=== PATIENT | female | born 1940 | race Caucasian/White ===

== ENCOUNTER → 2018-12-01 | Emergency (ER) | LOC: FER 22:08 ==

== ENCOUNTER 2020-04-27 13:54 | Inpatient (IN) | payer OTHER, MEDICARE ==
--- NOTE | 2020-04-27 14:08 | PDOC ---
History of Present Illness - General Chief Complaint: Shortness of Breath Stated Complaint: sob and abdominal pain Time Seen by Provider: 04/27/20 14:04 - History of Present Illness Initial Comments: 04/27/20 14:29 Chief complaint: Shortness of breath HPI: Increasing shortness of breath for about 3 days, worse this morning. Also generalized weakness, fatigue, and anorexia. Denies fever/chills, body aches. Review of systems: As noted above. In addition, no headache, URI symptoms, sore throat, cough, chest pain, abdominal pain, nausea, vomiting, diarrhea, diaphoresis, vaginal bleeding or discharge, urinary tract symptoms, visual or focal neurologic symptoms or unsteadiness of gait. Remainder of systems reviewed and negative Past medical history: Gallstones with acute cholecystitis several months ago, surgery was not possible, treated with a stent that resolved the symptoms and the stent was removed. Took medication to "dissolve the gallstones" and thus far had no recurrences. Jka-pignlai-ccioxucyt diabetes. High blood pressure. Hypothyroidism. Medications: Glipizide, metformin, hydrochlorothiazide, ramipril, verapamil, metoprolol, Synthroid, Actigall, Social history: Lives next door to her daughter, ambulatory, cares for herself, never smoked, no alcohol or other drugs. Family history: Reviewed and noncontributory including early coronary artery disease, metabolic disease including diabetes, cancer Physical exam: Alert and oriented, moderately dyspneic, tachypneic, well- nourished, cooperative Afebrile, vital signs reveal respiratory rate of 28 and labored and oxygen saturation of 75% on room air, improving to 96% on 3 L nasal cannula. To 148/48 and heart rate 57 and regular. HEENT normal Neck supple without bruit mass or nodes Chest exam reveals bilateral scattered rales and wheezes over both posterior lung catalan. Tachypnea and dyspnea as described above CV S1-S2 normal without murmur rub or gallop pulses full and symmetric no JVD. 2+ edema to the midcalf. No erythema or warmth. Mildly bradycardic at 57/min Abdomen nondistended. Bowel sounds normal. Soft without mass tenderness organomegaly Neurological C2 to 12 intact. Strength full and symmetric. No focal sensory or motor deficits. Cerebellar intact. Gait not tested Skin clear, no rash, adequate turgor and wet mucous membranes Extremities: No visible or palpable trauma. Edema as noted in the lower extremities Impression: Acute shortness of breath, progressing over 2 to 3 days, without fever or cough. Possibilities include acute bronchitis, pneumonia, including COVID, CHF. Less likely is PE or acute coronary syndrome Plan: CBC chemistries chest x-ray EKG and enzymes. Further evaluation and treatment depending on results Past History - Medical History Allergies/Adverse Reactions: Allergies Allergy/AdvReac Type Severity Reaction Status Date / Time Penicillins Allergy Severe throat Verified 04/27/20 15:02 swelling egg Allergy Verified 04/27/20 15:02 shellfish derived Allergy Verified 04/27/20 15:02 sulfur [From Sulfur-8] Allergy Verified 04/27/20 15:02 yellow dye Allergy Verified 04/27/20 15:02 Home Medications: Ambulatory Orders Glipizide [Glipizide Xl] 5 mg PO BID 12/01/18 Hydrochlorothiazide [Hctz -] 12.5 mg PO DAILY 12/01/18 Metformin HCl [Glucophage] 500 mg PO BID 12/01/18 Ursodiol [Actigal -] 300 mg PO BID capsule 12/08/18 Metoprolol Tartrate 100 mg PO BID 04/27/20 COPD: No Diabetes: Yes GI Disorders: Yes (gallbladder) HTN: Yes Thyroid Disease: Yes - Immunization History Immunization Up to Date: Yes - Psycho-Social/Smoking History Smoking History: Never smoked Have you smoked in the past 12 months: No Information on smoking cessation initiated: No - Substance Abuse Hx (Audit-C & DAST Scrn) How often the patient has a drink containing alcohol: Never Score: In Men: 4 or > Positive; In Women: 3 or > Positive: 0 Screen Result (Pos requires Nsg. Audit-10AR): Negative *Physical Exam - Vital Signs Last Vital Signs Temp Pulse Resp BP Pulse Ox 97.8 F 58 L 19 180/73 H 75 L 04/27/20 13:55 04/27/20 13:55 04/27/20 13:55 04/27/20 13:55 04/27/20 13:55 ED Treatment Course - LABORATORY CBC & Chemistry Diagram: 04/27/20 14:45 04/27/20 14:45 Medical Decision Making - Medical Decision Making 04/27/20 15:26 Chest x-ray shows moderate to severe congestive changes. EKG mild sinus bradycardia 58/min. Normal axis and intervals. No ST-T wave changes. Otherwise normal EKG. 04/27/20 16:44 Laboratories show no significant abnormalities, troponin pending. Patient responded well to intravenous Lasix, breathing much better both subjectively and objectively. Respiratory rate is 20 and unlabored. O2 saturation 88% on 2 L/min nasal cannula. No chest pain nausea diaphoresis. Hospitalist team was informed of the admission. Spoke with Luna Cheema. Will be admitted under Dr. Benny Ramos. Clinically and hemodynamically stable upon transfer to the [facility] floor. Discharge - Discharge Information Problems reviewed: Yes Clinical Impression/Diagnosis: CHF (congestive heart failure) Qualifiers: Heart failure type: unspecified Heart failure chronicity: acute Qualified Code(s): I50.9 - Heart failure, unspecified - Admission Yes - Follow up/Referral - Patient Discharge Instructions - Post Discharge Activity
--- OUTSIDE RECORDS SUMMARY | 2020-04-27 14:09 | XMS ---
:1940 Author Organization [facility] Support Name Relationship Address Phone RE Unavailable Unavailable Unavailable ABHIJEET MARQUEZ DAUGHTER [address] [place] [address] Re-disclosure Warning The records that you are about to access may contain information from federally- assisted alcohol or drug abuse programs. If such information is present, then the following federally mandated warning applies: This information has been disclosed to you from records protected by federal confidentiality rules (42 CFR part 2). The federal rules prohibit you from making any further disclosure of this information unless further disclosure is expressly permitted by the written consent of the person to whom it pertains or as otherwise permitted by 42 CFR part 2. A general authorization for the release of medical or other information is NOT sufficient for this purpose. The Federal rules restrict any use of the information to criminally investigate or prosecute any alcohol or drug abuse patient.The records that you are about to access may contain highly sensitive health information, the redisclosure of which is protected by Article 27-F of the [facility] Public Health law. If you continue you may haveaccess to information: Regarding HIV / AIDS; Provided by facilities licensed or operated by the [facility] Office of Mental Health; or Provided by the [facility] Office for People With Developmental Disabilities. If such information is present, then the following [facility] mandated warning applies: This information has been disclosed to you from confidential records which are protected by state law. State law prohibits you from making any further disclosure of this information without the specific written consent of the person to whom it pertains, or as otherwise permitted by law. Any unauthorized further disclosure in violation of state law may result in a fine or fpc sentence or both. A general authorization for the release of medical or other information is NOT sufficient authorization for further disclosure. Insurance Providers Payer name Policy type Policy ID Covered Covered libertarian's Policy P chel / Coverage libertarian ID relationship to [facility] ormation type andres HEALTH [id number] SP [id number] SOL[facility]IONS [facility] [employer] [id number] SP [id number] CARE OPTIONS MEDICARE [id number] SP [id number] HEALTH [employer] Results ID Date Data Source [id number] 04/08/2020 09:31:00 AM EDT [facility] Name Value Range Interpretation Code Description Data Carmel rce(s) Supporting Document(s ) SARS-COV-2 [facility] RNA RESP QL CHARISMA+PROBE This lab was ordered by [facility] and reported by [facility]. ID Date Data Source [id number] 03/11/2020 10:27:00 AM EDT [facility] Name Value Range Interpretation Code Description Data Carmel rce(s) Supporting Document(s ) SARS-COV-2 [facility] RNA RESP QL CHARISMA+PROBE This lab was ordered by [facility] and reported by [facility]. ID Date Data Source [id number] 01/27/2020 12:06:00 AM EDT [facility] Name Value Range Interpretation Code Description Data Carmel rce(s) Supporting Document(s ) SARS-COV-2 [facility] RNA RESP QL CHARISMA+PROBE This lab was ordered by [facility] and reported by [facility]. Procedure
[2020-04-27 14:58] LABS: BASO % 3.9 % (0-2.0); EOS % 0.5 % (0-4.5); HEMATOCRIT 34.6 % (32.4-45.2); HEMOGLOBIN 10.8 GM/dl (10.7-15.3); LYMPH % 8.1 % (8-40); MCH 30.1 pg (25.7-33.7); MCHC 31.1 g/dl (32.0-36.0); MEAN CELL VOLUME 96.6 fl (80-96); MEAN PLT VOLUME 8.4 fl (7.5-11.1); MONO % 8.5 % (3.8-10.2); PLATELET COUNT 470 K/MM3 (134-434); RBC 3.59 M/mm3 (3.60-5.2); RDW 18.1 % (11.6-15.6)
[2020-04-27 15:11] LABS: ALBUMIN 3.7 g/dl (3.4-5.0); CALCIUM 9.1 mg/dl (8.5-10); CREATININE 1.1 mg/dl (0.55-1.3); POTASSIUM 4.7 mmol/L (3.5-5.1); TOT PROT 6.9 g/dl (6.4-8.2)
[2020-04-27 15:25] LABS: INR 1.22 (0.82-1.09); PROTHROMBIN TIME (PATIENT) 13.6 SEC (10.2-13.0)
[2020-04-27] MEDS ORDERED: FUROSEMIDE 40 MG/4 ML INJECTABLE VIAL IVPUSH ONE (15:37)
[2020-04-27] MEDS ORDERED: INSULIN REGULAR HUMAN 100 UNITS/ML *VIAL SQ ONE (16:01)
[2020-04-27] MEDS ORDERED: FUROSEMIDE 40 MG/4 ML INJECTABLE VIAL ONE (16:05)
[2020-04-27] MEDS ORDERED: INSULIN REGULAR HUMAN 100 UNITS/ML *VIAL ONE (16:07)
--- NOTE | 2020-04-27 16:18 | HP ---
CHIEF COMPLAINT: Shortness of breath PCP: Dr. Roni Rose, [facility] HISTORY OF PRESENT ILLNESS: 79 year-old female with a PMH significant for HTN, Type II NIDDM, hypothyroidism, acute cholecystitis/cholangitis, presents to ED with SOB x 3 days. Also generalized weakness, fatigue, and anorexia. Denies fever/chills, body aches. Hospitalized at [facility] in November 2018 for acute cholecystitis/cholangitis. Was rehospitalized several months ago at [facility] for same problem, patient states they were unable to remove the gallbladder because it was infected and she had drainage tubes for a time. Denies abdominal pain, n/v/d. Denies ever being told she has heart failure. ER course was notable for: (1) SpO2 75% on room air (2) WBC 17.0k, glucose 459 (4) Lasix IVP 40mg x 1; insulin 20U Recent Travel: No PAST MEDICAL HISTORY: Hypertension Type II NIDDM Hypothyroidism Acute cholecystitis/cholangitis 11/2018 PAST SURGICAL HISTORY: Sphincterotomy 11/2018 Cholecystostomy 2019 Social History: Lives next door to her daughter, ambulatory, cares for herself Smoking: never Alcohol: no Drugs: no Family history: reviewed and non-contributory Allergies Penicillins Allergy (Severe, Verified 04/27/20 15:02) throat swelling egg Allergy (Verified 04/27/20 15:02) shellfish derived Allergy (Verified 04/27/20 15:02) sulfur [From Sulfur-8] Allergy (Verified 04/27/20 15:02) yellow dye Allergy (Verified 04/27/20 15:02) HOME MEDICATIONS: Home Medications Medication Instructions Recorded Glipizide [Glipizide Xl] 5 mg PO BID 12/01/18 Hydrochlorothiazide [Hctz -] 12.5 mg PO DAILY 12/01/18 Metformin HCl [Glucophage] 500 mg PO BID 12/01/18 Ursodiol [Actigal -] 300 mg PO BID capsule 12/08/18 Metoprolol Tartrate 100 mg PO BID 04/27/20 REVIEW OF SYSTEMS CONSTITUTIONAL: +weakness, fatigue, anorexia Absent: fever, chills, diaphoresis, generalized weakness, malaise, loss of appetite, weight change HEENT: Absent: rhinorrhea, nasal congestion, throat pain, throat swelling, difficulty swallowing, mouth swelling, ear pain, eye pain, visual changes CARDIOVASCULAR: Absent: chest pain, syncope, palpitations, irregular heart rate, lightheadedness, peripheral edema RESPIRATORY: +SOB Absent: cough, shortness of breath, dyspnea with exertion, orthopnea, wheezing, stridor, hemoptysis GASTROINTESTINAL: Absent: abdominal pain, abdominal distension, nausea, vomiting, diarrhea, constipation, melena, hematochezia GENITOURINARY: Absent: dysuria, frequency, urgency, hesitancy, hematuria, flank pain, genital pain MUSCULOSKELETAL: Absent: myalgia, arthralgia, joint swelling, back pain, neck pain SKIN: Absent: rash, itching, pallor HEMATOLOGIC/IMMUNOLOGIC: Absent: easy bleeding, easy bruising, lymphadenopathy, frequent infections ENDOCRINE: Absent: unexplained weight gain, unexplained weight loss, heat intolerance, cold intolerance NEUROLOGIC: Absent: headache, focal weakness or paresthesias, dizziness, unsteady gait, seizure, mental status changes, bladder or bowel incontinence PSYCHIATRIC: Absent: anxiety, depression, suicidal or homicidal ideation, hallucinations. PHYSICAL EXAMINATION Vital Signs - 24 hr 04/27/20 04/27/20 13:55 14:25 Temperature 97.8 F Pulse Rate 58 L Respiratory 19 Rate Blood Pressure 180/73 H O2 Sat by Pulse 100 100 Oximetry (%) GENERAL: Awake, alert, and fully oriented, in no acute distress. Anxious HEAD: Normal with no signs of trauma. EYES: Pupils equal, round and reactive to light, extraocular movements intact, sclera anicteric, conjunctiva clear. No lid lag. LUNGS: Bilateral upper lobe wheezes; bilateral lower lobe crackles; dyspneic with speaking HEART: Regular rate and rhythm, normal S1 and S2 ABDOMEN: Soft, nontender, not distended UPPER EXTREMITIES: 2+ pulses, warm, well-perfused. No cyanosis. No clubbing. No peripheral edema. LOWER EXTREMITIES: 2+ pulses, warm, well-perfused. No calf tenderness. 3+pitting edema bilaterally NEUROLOGICAL: Cranial nerves II-XII intact. Normal speech. Laboratory Results - last 24 hr 04/27/20 04/27/20 04/27/20 14:45 14:45 14:45 WBC 17.0 H RBC 3.59 L Hgb 10.8 Hct 34.6 MCV 96.6 H MCH 30.1 MCHC 31.1 L RDW 18.1 H D Plt Count 470 H MPV 8.4 Absolute Neuts (auto) 13.4 Neutrophils % 79.0 Lymphocytes % 8.1 Monocytes % 8.5 Eosinophils % 0.5 Basophils % 3.9 H PT with INR 13.6 H INR 1.22 Sodium 132 L Potassium 4.7 Chloride 96 L Carbon Dioxide 28 Anion Gap 8 BUN 27.0 H Creatinine 1.1 Est GFR (CKD-EPI)AfAm 54.91 Est GFR (CKD-EPI)NonAf 47.38 Random Glucose 459 H* Calcium 9.1 Total Bilirubin 1.0 AST 20 ALT 22 Alkaline Phosphatase 65 Creatine Kinase Total Protein 6.9 Albumin 3.7 04/27/20 14:45 WBC RBC Hgb Hct MCV MCH MCHC RDW Plt Count MPV Absolute Neuts (auto) Neutrophils % Lymphocytes % Monocytes % Eosinophils % Basophils % PT with INR INR Sodium Potassium Chloride Carbon Dioxide Anion Gap BUN Creatinine Est GFR (CKD-EPI)AfAm Est GFR (CKD-EPI)NonAf Random Glucose Calcium Total Bilirubin AST ALT Alkaline Phosphatase Creatine Kinase 28 Total Protein Albumin ASSESSMENT/PLAN: 79 year-old female with a PMH significant for HTN, Type II NIDDM, hypothyroidism, acute cholecystitis/cholangitis, admitted for acute hypoxic respiratory failure. Acute hypoxic respiratory failure --SpO2 75% on room air on arrival to ED Acute heart failure NOS --CXR with significant congestion, lower extremity edema; significant improvement in O2 saturation following admimistration of Lasix in ED --Echo November 2018: LV normal, EF 55-60%; RV normal; trace MR, trace TR, mild PI; will get repeat study --troponins pending --BNP pending --Lasix IVP 40mg daily --telemetry monitoring --cardiology consult Possible pneumonia --leukocytosis and possible infiltrate on CXR --CT chest pending --blood and urine cultures pending, urine pneumonia Ag ordered, rapid flu ordered --COVID pending --start empiric levaquin (pen allergic) Hypertension --continue metoprolol; hold HCTZ since on lasix Type II NIDDM --Novolog sliding scale coverage FEN Fluids: PO intake adequate Electrolytes: replete as indicated Nutrition: low sodium DVT prophylaxis: subq heparin Physical therapy Dispo: continues to require inpatient care. Full code. Family Medical History Family History: As Documented Visit type - Medication Review Med list reviewed for High Risk Meds patients 65 and older: Yes - Emergency Visit Emergency Visit: Yes ED Registration Date: 04/27/20 Care time: The patient presented to the Emergency Department on the above date and was hospitalized for further evaluation of their emergent condition. - New Patient This patient is new to me today: Yes Date on this admission: 04/28/20 - Critical Care Critical Care patient: No
--- OUTSIDE RECORDS SUMMARY | 2020-04-27 17:44 | XMS ---
:1940 Author Organization [facility] Support Name Relationship Address Phone RE Unavailable Unavailable Unavailable ABHIJEET MARQUEZ DAUGHTER [address] [facility] [place] [address] Re-disclosure Warning The records that you are [...] is protected by Article 27-F of the [facility] Public Health law. If you continue you may haveaccess to information: Regarding HIV / AIDS; Provided by facilities licensed or operated by the [facility] Office of Mental Health; or Provided by the [facility] Office for People With Developmental Disabilities. If such information is present, then the following [facility] mandated warning applies: This information [...] law may result in a fine or long term sentence or both. A general authorization for the release of medical or other information is NOT sufficient authorization for further disclosure. Insurance Providers Payer name Policy type Policy ID Covered Covered republican's Policy P chel / Coverage republican ID relationship to [facility]res [facility] ormation type andres [facility] [id number] CARE OPTIONS MEDICARE [id number] SP [id number] HEALTH [id number] SP [id number] SOLUTIONS [facility] SP HEALTH [employer] Results ID Date Data Source [id number] 04/08/2020 09:31:00 AM EDT [facility] Name Value Range Interpretation Code Description Data Carmel rce(s) Supporting Document(s ) SARS-COV-2 [facility] RNA RESP QL CHARISMA+PROBE This lab was ordered by [facility] and reported by [facility]. ID Date Data Source [id number] 03/11/2020 10:27:00 AM EDT [facility] Name Value Range Interpretation Code Description Data Carmel rce(s) Supporting Document(s ) SARS-COV-2 [facility] RNA RESP QL CHARISMA+PROBE This lab was ordered by [facility] and reported by [facility]. ID Date Data Source [id number] 01/27/2020 12:06:00 AM EDT [facility] Name Value Range Interpretation Code Description Data Carmel rce(s) Supporting Document(s ) SARS-COV-2 [facility] RNA RESP QL CHARISMA+PROBE This lab was ordered by [facility] and reported by [facility]. Procedure
[2020-04-27 18:45] LABS: N-TERMINAL BNP 3026.83 pg/ml (5-450)
[2020-04-27] MEDS: URSODIOL 300 MG CAPSULE PO SCH (21:45)
[2020-04-27] MEDS: HEPARIN NA (PORCINE) 5,000 UNITS/ML 1ML VIAL SQ SCH (21:50)
[2020-04-27] MEDS: METOPROLOL TARTRATE 50 MG TABLET (FP) PO SCH (21:51)
[2020-04-27] MEDS: INSULIN SLIDING SCALE (NOVOLOG) 1 VIAL SQ SCH (22:20)
[2020-04-28] MEDS: HEPARIN NA (PORCINE) 5,000 UNITS/ML 1ML VIAL SQ SCH ×3 (06:12→22:11)
[2020-04-28] MEDS: INSULIN SLIDING SCALE (NOVOLOG) 1 VIAL SQ SCH ×4 (06:12→22:14)
[2020-04-28 08:21] LABS: BASO % 1.1 % (0-2.0); EOS % 1.9 % (0-4.5); HEMATOCRIT 32.3 % (32.4-45.2); HEMOGLOBIN 10.2 GM/dl (10.7-15.3); LYMPH % 21.9 % (8-40); MCH 30.1 pg (25.7-33.7); MCHC 31.7 g/dl (32.0-36.0); MEAN CELL VOLUME 94.9 fl (80-96); MEAN PLT VOLUME 8.2 fl (7.5-11.1); NEUT % 67.1 % (42.8-82.8); PLATELET COUNT 373 K/MM3 (134-434); WHITE BLOOD COUNT 12.3 K/mm3 (4.0-10.8)
[2020-04-28 08:32] LABS: ALBUMIN 3.3 g/dl (3.4-5.0); BILIRUBIN,TOTAL 0.6 mg/dl (0.2-1); CREATININE 1.2 mg/dl (0.55-1.3); MAGNESIUM 1.8 mg/dL (1.8-2.4); PHOSPHOROUS 4.8 mg/dl (2.5-4.9); POTASSIUM 4.4 mmol/L (3.5-5.1); TOT PROT 6.2 g/dl (6.4-8.2)
[2020-04-28] MEDS: METOPROLOL TARTRATE 50 MG TABLET (FP) PO SCH ×2 (09:40→22:10)
[2020-04-28] MEDS: URSODIOL 300 MG CAPSULE PO SCH ×2 (09:40→22:11)
[2020-04-28] MEDS ORDERED: FUROSEMIDE 40 MG/4 ML INJECTABLE VIAL IVPUSH SCH (10:00)
--- NOTE | 2020-04-28 12:45 | PN ---
Physical Exam: SUBJECTIVE: Patient seen and examined. With clear nasal discharge and sneezing. Denies cough, denies SOB. OBJECTIVE: Vital Signs Period Temp Pulse Resp BP Sys/St Pulse Ox Last 24 Hr 97.6 F-98.9 F 19-62 18-20 107-180/42-84 75-100 GENERAL: Awake, alert, and fully oriented, in no acute distress. Anxious HEAD: Normal with no signs of trauma. EYES: Pupils equal, round and reactive to light, extraocular movements intact, sclera anicteric, conjunctiva clear. No lid lag. LUNGS: Bilateral upper lobe wheezes; bilateral lower lobe crackles; dyspneic with speaking HEART: Regular rate and rhythm, normal S1 and S2 ABDOMEN: Soft, nontender, not distended UPPER EXTREMITIES: 2+ pulses, warm, well-perfused. No cyanosis. No clubbing. No peripheral edema. LOWER EXTREMITIES: 2+ pulses, warm, well-perfused. No calf tenderness. 3+pitting edema bilaterally NEUROLOGICAL: Cranial nerves II-XII intact. Normal speech. Laboratory Results - last 24 hr 04/27/20 04/27/20 04/27/20 14:15 14:45 14:45 WBC RBC Hgb Hct MCV MCH MCHC RDW Plt Count MPV Absolute Neuts (auto) Neutrophils % Lymphocytes % Monocytes % Eosinophils % Basophils % PT with INR INR D-Dimer 959 H Sodium 132 L Potassium 4.7 Chloride 96 L Carbon Dioxide 28 Anion Gap 8 BUN 27.0 H Creatinine 1.1 Est GFR (CKD-EPI)AfAm 54.91 Est GFR (CKD-EPI)NonAf 47.38 POC Glucometer Random Glucose 459 H* Hemoglobin A1c % Lactic Acid Calcium 9.1 Phosphorus Magnesium Total Bilirubin 1.0 AST 20 ALT 22 Alkaline Phosphatase 65 Creatine Kinase Troponin I < 0.03 Cancelled B-Natriuretic Peptide Cancelled Total Protein 6.9 Albumin 3.7 Triglycerides Cholesterol Total LDL Cholesterol HDL Cholesterol TSH Urine Color Urine Appearance Urine pH Urine Protein Urine Glucose (UA) Urine Ketones Urine Blood Urine Nitrite Urine Bilirubin Urine Urobilinogen Ur Leukocyte Esterase Urine RBC Urine WBC Urine Bacteria Influenza A (Rapid) Influenza B (Rapid) 04/27/20 04/27/20 04/27/20 14:45 14:45 14:45 WBC 17.0 H RBC 3.59 L Hgb 10.8 Hct 34.6 MCV 96.6 H MCH 30.1 MCHC 31.1 L RDW 18.1 H D Plt Count 470 H MPV 8.4 Absolute Neuts (auto) 13.4 Neutrophils % 79.0 Lymphocytes % 8.1 Monocytes % 8.5 Eosinophils % 0.5 Basophils % 3.9 H PT with INR 13.6 H INR 1.22 D-Dimer Sodium Potassium Chloride Carbon Dioxide Anion Gap BUN Creatinine Est GFR (CKD-EPI)AfAm Est GFR (CKD-EPI)NonAf POC Glucometer Random Glucose Hemoglobin A1c % Lactic Acid Calcium Phosphorus Magnesium Total Bilirubin AST ALT Alkaline Phosphatase Creatine Kinase 28 Troponin I B-Natriuretic Peptide 3026.83 H Total Protein Albumin Triglycerides Cholesterol Total LDL Cholesterol HDL Cholesterol TSH Urine Color Urine Appearance Urine pH Urine Protein Urine Glucose (UA) Urine Ketones Urine Blood Urine Nitrite Urine Bilirubin Urine Urobilinogen Ur Leukocyte Esterase Urine RBC Urine WBC Urine Bacteria Influenza A (Rapid) Influenza B (Rapid) 04/27/20 04/27/20 04/27/20 16:20 16:30 18:30 WBC RBC Hgb Hct MCV MCH MCHC RDW Plt Count MPV Absolute Neuts (auto) Neutrophils % Lymphocytes % Monocytes % Eosinophils % Basophils % PT with INR INR D-Dimer Sodium Potassium Chloride Carbon Dioxide Anion Gap BUN Creatinine Est GFR (CKD-EPI)AfAm Est GFR (CKD-EPI)NonAf POC Glucometer Random Glucose Hemoglobin A1c % Lactic Acid 0.9 Calcium Phosphorus Magnesium Total Bilirubin AST ALT Alkaline Phosphatase Creatine Kinase Troponin I B-Natriuretic Peptide Total Protein Albumin Triglycerides Cholesterol Total LDL Cholesterol HDL Cholesterol TSH Urine Color Yellow Urine Appearance Clear Urine pH 5.0 Urine Protein Trace Urine Glucose (UA) 2+ H Urine Ketones Negative Urine Blood Trace-lysed Urine Nitrite Negative Urine Bilirubin Negative Urine Urobilinogen 0.2 Ur Leukocyte Esterase Negative Urine RBC 2-5 Urine WBC 0-2 Urine Bacteria Few Influenza A (Rapid) Negative Influenza B (Rapid) Negative 04/27/20 04/27/20 04/27/20 21:43 23:00 23:00 WBC RBC Hgb Hct MCV MCH MCHC RDW Plt Count MPV Absolute Neuts (auto) Neutrophils % Lymphocytes % Monocytes % Eosinophils % Basophils % PT with INR INR D-Dimer Sodium Potassium Chloride Carbon Dioxide Anion Gap BUN Creatinine Est GFR (CKD-EPI)AfAm Est GFR (CKD-EPI)NonAf POC Glucometer 179 Random Glucose Hemoglobin A1c % Lactic Acid Calcium Phosphorus Magnesium Total Bilirubin AST ALT Alkaline Phosphatase Creatine Kinase Troponin I Cancelled < 0.02 B-Natriuretic Peptide Total Protein Albumin Triglycerides Cholesterol Total LDL Cholesterol HDL Cholesterol TSH Urine Color Urine Appearance Urine pH Urine Protein Urine Glucose (UA) Urine Ketones Urine Blood Urine Nitrite Urine Bilirubin Urine Urobilinogen Ur Leukocyte Esterase Urine RBC Urine WBC Urine Bacteria Influenza A (Rapid) Influenza B (Rapid) 04/28/20 04/28/20 04/28/20 04:00 04:00 06:08 WBC RBC Hgb Hct MCV MCH MCHC RDW Plt Count MPV Absolute Neuts (auto) Neutrophils % Lymphocytes % Monocytes % Eosinophils % Basophils % PT with INR INR D-Dimer Sodium Potassium Chloride Carbon Dioxide Anion Gap BUN Creatinine Est GFR (CKD-EPI)AfAm Est GFR (CKD-EPI)NonAf POC Glucometer 82 Random Glucose Hemoglobin A1c % Lactic Acid Calcium Phosphorus Magnesium Total Bilirubin AST ALT Alkaline Phosphatase Creatine Kinase Troponin I Cancelled < 0.02 B-Natriuretic Peptide Total Protein Albumin Triglycerides Cholesterol Total LDL Cholesterol HDL Cholesterol TSH Urine Color Urine Appearance Urine pH Urine Protein Urine Glucose (UA) Urine Ketones Urine Blood Urine Nitrite Urine Bilirubin Urine Urobilinogen Ur Leukocyte Esterase Urine RBC Urine WBC Urine Bacteria Influenza A (Rapid) Influenza B (Rapid) 04/28/20 04/28/20 04/28/20 07:12 07:12 07:12 WBC 12.3 H RBC 3.40 L Hgb 10.2 L Hct 32.3 L MCV 94.9 MCH 30.1 MCHC 31.7 L RDW 18.0 H Plt Count 373 MPV 8.2 Absolute Neuts (auto) 8.2 Neutrophils % 67.1 Lymphocytes % 21.9 Monocytes % 8.0 Eosinophils % 1.9 Basophils % 1.1 PT with INR INR D-Dimer Sodium 139 Potassium 4.4 Chloride 98 Carbon Dioxide 31 Anion Gap 10 BUN 29.0 H Creatinine 1.2 Est GFR (CKD-EPI)AfAm 49.43 Est GFR (CKD-EPI)NonAf 42.65 POC Glucometer Random Glucose 111 H Hemoglobin A1c % 8.2 H Lactic Acid Calcium 9.0 Phosphorus 4.8 Magnesium 1.8 Total Bilirubin 0.6 AST 14 L ALT 18 Alkaline Phosphatase 57 Creatine Kinase Troponin I B-Natriuretic Peptide Total Protein 6.2 L Albumin 3.3 L Triglycerides 137 Cholesterol 158 Total LDL Cholesterol 97 HDL Cholesterol 33 L TSH 11.50 H Urine Color Urine Appearance Urine pH Urine Protein Urine Glucose (UA) Urine Ketones Urine Blood Urine Nitrite Urine Bilirubin Urine Urobilinogen Ur Leukocyte Esterase Urine RBC Urine WBC Urine Bacteria Influenza A (Rapid) Influenza B (Rapid) Active Medications Generic Name Dose Route Start Last Admin Trade Name Oriana PRN Reason Stop Dose Admin Furosemide 40 mg 04/28/20 10:00 04/28/20 09:40 Lasix Injection - IVPUSH 40 mg DAILY JANIA Administration Heparin Sodium (Porcine) 5,000 unit 04/27/20 22:00 04/28/20 06:12 Heparin - SQ 5,000 unit TID JANIA Administration Levofloxacin 750 mg in 150 mls @ 150 mls/hr 04/27/20 18:15 04/28/20 09:39 Levaquin 750 Mg Premixed Ivpb - IVPB 150 mls/hr DAILY JANIA Administration Protocol Insulin Aspart 1 vial 04/27/20 22:00 04/28/20 06:12 Novolog Vial Sliding Scale - SQ Not Given ACHS [facility] Protocol Metoprolol Tartrate 100 mg 04/27/20 22:00 04/28/20 09:40 Lopressor - PO 100 mg BID JANIA Administration Ursodiol 300 mg 04/27/20 22:00 04/28/20 09:40 Actigal - PO 300 mg BID JANIA Administration ASSESSMENT/PLAN: 79 year-old female with a PMH significant for HTN, Type II NIDDM, hypothyroidism, acute cholecystitis/cholangitis, admitted for acute hypoxic respiratory failure. Acute hypoxic respiratory failure --SpO2 75% on room air on arrival to ED Acute diastolic heart failure --CXR with significant congestion, lower extremity edema; BNP >3,000 --11/2018 Echo November 2018: LV normal, EF 55-60%; RV normal; trace MR, trace TR, mild PI --04/28/20 Echo: LV normal, EF 55-60%; RV normal; mild MR; moderate TR; mild PI; --troponins neg x 3 --down 2.5kg from yesterday, continue Lasix IVP 40mg daily --telemetry monitoring --cardiology consult Strep pneumoniae pneumonia --CT chest: ILYA focal groundglass opacity suggestive of infiltrate --Urine antigen (+) S. pneumonia --remains afebrile, WBC trending down --COVID pending; d-dimer elevated --continue levaquin (day #2) (pen allergic) Hypertension --continue metoprolol; hold HCTZ since on lasix Type II NIDDM --Novolog sliding scale coverage FEN Fluids: PO intake adequate Electrolytes: replete as indicated Nutrition: low sodium DVT prophylaxis: subq heparin Physical therapy Dispo: continues to require inpatient care. Full code. Visit type - Emergency Visit Emergency Visit: Yes ED Registration Date: 04/27/20 Care time: The patient presented to the Emergency Department on the above date and was hospitalized for further evaluation of their emergent condition. - New Patient This patient is new to me today: No - Critical Care Critical Care patient: No - Medication Review Med list reviewed for High Risk Meds patients 65 and older: Yes
--- NOTE | 2020-04-28 13:28 | ECHO ---
Name: ALANIS COLBY Exam:Adult Echocardiogram Study Date: 04/28/2020 12:18 PM Age: 79 yrs Reason For Study: LV Function Height: 65 in Weight: 203 lb BSA: 2.0 m2 MMode/2D Measurements & Calculations IVSd: 0.88 cm Ao root diam: 2.7 cm LVIDd: 4.9 cm LA dimension: 3.2 cm LVIDs: 3.4 cm LVPWd: 1.0 cm EDV(Teich): 110.9 ml LVOT diam: 2.0 cm ESV(Teich): 46.3 ml Doppler Measurements & Calculations MV E max raheel: 89.6 cm/sec MV A max raheel: 39.6 cm/sec MV dec slope: 447.2 cm/sec2 MV E/A: 2.3 Ao V2 max: 131.9 cm/sec LV V1 max P.1 mmHg Ao max P.0 mmHg LV V1 max: 72.6 cm/sec TRISH(V,D): 1.7 cm2 MR max raheel: 438.6 cm/sec TR max raheel: 274.1 cm/sec MR max P.0 mmHg TR max P.7 mmHg PA V2 max: 113.6 cm/sec PI end-d raheel: 126.4 cm/sec PA max P.2 mmHg Procedure A complete two-dimensional transthoracic echocardiogram was performed (2D, M-mode, Doppler and color flow Doppler). The study was technically difficult with many images being suboptimal in quality. Left Ventricle The left ventricular size, thickness and function are normal. Ejection Fraction = 55-60%. No regional wall motion abnormalities noted. Right Ventricle The right ventricle is normal in size and function. Atria Normal left and right atrial size and function. Mitral Valve There is mild mitral regurgitation. Tricuspid Valve There is moderate tricuspid regurgitation. There is mild pulmonary hypertension. Aortic Valve No hemodynamically significant valvular aortic stenosis. No aortic regurgitation is present. Pulmonic Valve There is no pulmonic valvular regurgitation. Great Vessels The aortic root is normal size. Pericardium/Pleura There is no pericardial effusion. Interpretation Summary The study was technically difficult with many images being suboptimal in quality. The left ventricular size, thickness and function are normal The right ventricle is normal in size and function. There is mild mitral regurgitation. There is moderate tricuspid regurgitation. There is mild pulmonary hypertension. MD Nelson Jeffries 04/28/2020 01:27 PM
--- NOTE | 2020-04-28 13:39 | EKG ---
Test Reason : Blood Pressure : / mmHG Vent. Rate : 058 BPM Atrial Rate : 058 BPM P-R Int : 154 ms QRS Dur : 088 ms QT Int : 456 ms P-R-T Axes : 013 029 035 degrees QTc Int : 447 ms SINUS BRADYCARDIA OTHERWISE NORMAL ECG WHEN COMPARED WITH ECG OF 02-DEC-2018 02:37, VENT. RATE HAS DECREASED BY 29 BPM Confirmed by NATASHA NICHOLS MD ([id number]) on 04/28/2020 1:38:45 PM Referred By: MD RAI Confirmed By:NATASHA NICHOLS MD
--- NOTE | 2020-04-28 14:10 | CON.ID ---
Consult Consult Specialty:: infectious diseases Referred by:: Peg Reason for Consultation:: pneumonia - History of Present Illness Chief Complaint: sob History of Present Illness: 79 year-old female with a PMH significant for HTN, Type II NIDDM, hypothyroidism, acute cholecystitis/cholangitis, presents with SOB x 3 days. Also generalized weakness, fatigue, and anorexia. Denies fever/chills, body aches. Hospitalized at [facility] in November 2018 for acute cholecystitis/cholangitis. Was rehospitalized several months ago at [facility] for same problem, patient states they were unable to remove the gallbladder because it was infected and she had drainage tubes for a time. Denies abdominal pain, n/v/d. Denies ever being told she has heart failure. patient currently on oxygen and was started on levaquin - History Source History Provided By: Patient Limitations to Obtaining History: No Limitations - Past Medical History Cardio/Vascular: Yes: HTN ...: No Endocrine: Yes: Diabetes Mellitus, Hypothyroidism - Past Surgical History Past Surgical History: Yes: None - Alcohol/Substance Use Hx Alcohol Use: No History of Substance Use: reports: None - Smoking History Smoking history: Never smoked Have you smoked in the past 12 months: No - Social History Usual Living Arrangement: Other (near her daughter) ADL: Independent History of Recent Travel: No Home Medications - Allergies Allergies/Adverse Reactions: Allergies Allergy/AdvReac Type Severity Reaction Status Date / Time Penicillins Allergy Severe throat Verified 04/27/20 15:02 swelling egg Allergy Verified 04/27/20 15:02 shellfish derived Allergy Verified 04/27/20 15:02 sulfur [From Sulfur-8] Allergy Verified 04/27/20 15:02 yellow dye Allergy Verified 04/27/20 15:02 - Home Medications Home Medications: Ambulatory Orders Glipizide [Glipizide Xl] 5 mg PO BID 12/01/18 Hydrochlorothiazide [Hctz -] 12.5 mg PO DAILY 12/01/18 Metformin HCl [Glucophage] 500 mg PO BID 12/01/18 Ursodiol [Actigal -] 300 mg PO BID capsule 12/08/18 Metoprolol Tartrate 100 mg PO BID 04/27/20 Review of Systems - Review of Systems Constitutional: reports: Weakness, Other Eyes: reports: No Symptoms HENT: reports: No Symptoms Neck: reports: No Symptoms Cardiovascular: reports: No Symptoms Respiratory: reports: Cough, SOB, SOB on Exertion, Wheezing Gastrointestinal: reports: No Symptoms Genitourinary: reports: No Symptoms Musculoskeletal: reports: No Symptoms Integumentary: reports: No Symptoms Neurological: reports: No Symptoms Endocrine: reports: No Symptoms Hematology/Lymphatic: reports: No Symptoms Psychiatric: reports: No Symptoms Physical Exam Vital Signs: Vital Signs Temperature 98.7 F 04/28/20 12:02 Pulse Rate 57 L 04/28/20 12:02 Respiratory Rate 20 04/28/20 12:02 Blood Pressure 137/47 L 04/28/20 12:02 O2 Sat by Pulse Oximetry (%) 98 04/28/20 12:02 Constitutional: Yes: Calm, Anxious, Mild Distress Eyes: Yes: Conjunctiva Clear HENT: Yes: Atraumatic, Normocephalic Neck: Yes: Supple, Trachea Midline Cardiovascular: Yes: Regular Rate and Rhythm Respiratory: Yes: Regular, Poor Air Entry (at the bases) Gastrointestinal: Yes: Normal Bowel Sounds, Soft Musculoskeletal: Yes: WNL Extremities: Yes: WNL Neurological: Yes: Alert, Oriented Psychiatric: Yes: Alert, Oriented Labs: CBC, BMP 04/28/20 07:12 04/28/20 07:12 Imaging - Results Chest X-ray: Report Reviewed, Image Reviewed Cat Scan: Report Reviewed, Image Reviewed Assessment/Plan 79 year-old female with a PMH significant for HTN, Type II NIDDM, hypothyroidism, acute cholecystitis/cholangitis, admitted for acute hypoxic respiratory failure. Acute hypoxic respiratory failure Acute diastolic heart failure Strep pneumoniae pneumonia Hypertension Type II NIDDM plan
--- NOTE | 2020-04-28 18:08 | CON.CARD ---
Cardiology Consult (text) - Consultation Consultation Note: cc: sob hpi: 79 f hx htn, dm, here with sob. Past few days has noticed mild sob, do, and le edema. Also general weakness. No cp palps dizzy loc pnd orthopnea. No known hx hrt dz. pmh: per hpi psh: gallbladder stent social: no tob fam: no premature cad, scd ros: per hpi; all others nl meds: Home Medications Medication Instructions Recorded Glipizide [Glipizide Xl] 5 mg PO BID 12/01/18 Hydrochlorothiazide [Hctz -] 12.5 mg PO DAILY 12/01/18 Metformin HCl [Glucophage] 500 mg PO BID 12/01/18 Ursodiol [Actigal -] 300 mg PO BID capsule 12/08/18 Metoprolol Tartrate 100 mg PO BID 04/27/20 pe: Vital Signs Period Temp Pulse Resp BP Sys/St Pulse Ox Last 24 Hr 97.6 F-98.9 F - 18- 107-145/42-79 94-99 nad no jvd rrr s1s2 nomrg b/l crackles, nl eff aao3 2+le edema bl, no c/c abd nt nd pos bs no jaundice diaphoresis pos dp pt no carotid bruits Laboratory Last Values WBC 12.3 K/mm3 (4.0-10.8) H 04/28/20 07:12 RBC 3.40 M/mm3 (3.60-5.2) L 04/28/20 07:12 Hgb 10.2 GM/dl (10.7-15.3) L 04/28/20 07:12 Hct 32.3 % (32.4-45.2) L 04/28/20 07:12 MCV 94.9 fl (80-96) 04/28/20 07:12 MCH 30.1 pg (25.7-33.7) 04/28/20 07:12 MCHC 31.7 g/dl (32.0-36.0) L 04/28/20 07:12 RDW 18.0 % (11.6-15.6) H 04/28/20 07:12 Plt Count 373 K/MM3 (134-434) 04/28/20 07:12 MPV 8.2 fl (7.5-11.1) 04/28/20 07:12 Absolute Neuts (auto) 8.2 K/mm3 04/28/20 07:12 Neutrophils % 67.1 % (42.8-82.8) 04/28/20 07:12 Lymphocytes % 21.9 % (8-40) 04/28/20 07:12 Monocytes % 8.0 % (3.8-10.2) 04/28/20 07:12 Eosinophils % 1.9 % (0-4.5) 04/28/20 07:12 Basophils % 1.1 % (0-2.0) 04/28/20 07:12 PT with INR 13.6 SEC (10.2-13.0) H 04/27/20 14:45 INR 1.22 (0.82-1.09) 04/27/20 14:45 D-Dimer 959 ng/ml (0-500) H 04/27/20 14:45 Sodium 139 mmol/L (136-145) 04/28/20 07:12 Potassium 4.4 mmol/L (3.5-5.1) 04/28/20 07:12 Chloride 98 mmol/L (98-107) 04/28/20 07:12 Carbon Dioxide 31 mmol/L (21-32) 04/28/20 07:12 Anion Gap 10 MMOL/L (8-16) 04/28/20 07:12 BUN 29.0 mg/dl (7-18) H 04/28/20 07:12 Creatinine 1.2 mg/dl (0.55-1.3) 04/28/20 07:12 Est GFR (CKD-EPI)AfAm 49.43 04/28/20 07:12 Est GFR (CKD-EPI)NonAf 42.65 04/28/20 07:12 POC Glucometer 165 UNITS (80-120) 04/28/20 16:31 Random Glucose 111 mg/dl (74-106) H 04/28/20 07:12 Hemoglobin A1c % 8.2 % (4.2-6.3) H 04/28/20 07:12 Lactic Acid 0.9 mmol/L (0.4-2.0) 04/27/20 16:20 Calcium 9.0 mg/dl (8.5-10) 04/28/20 07:12 Phosphorus 4.8 mg/dl (2.5-4.9) 04/28/20 07:12 Magnesium 1.8 mg/dL (1.8-2.4) 04/28/20 07:12 Total Bilirubin 0.6 mg/dl (0.2-1) 04/28/20 07:12 AST 14 U/L (15-37) L 04/28/20 07:12 ALT 18 U/L (13-61) 04/28/20 07:12 Alkaline Phosphatase 57 U/L (45-117) 04/28/20 07:12 Creatine Kinase 28 U/L (26-192) 04/27/20 14:45 Troponin I < 0.02 ng/ml (0.00-0.05) 04/28/20 04:00 Troponin I Cancelled 04/28/20 04:00 B-Natriuretic Peptide 3026.83 pg/ml (5-450) H 04/27/20 14:45 B-Natriuretic Peptide Cancelled 04/27/20 14:45 Total Protein 6.2 g/dl (6.4-8.2) L 04/28/20 07:12 Albumin 3.3 g/dl (3.4-5.0) L 04/28/20 07:12 Triglycerides 137 mg/dl (0-150) 04/28/20 07:12 Cholesterol 158 mg/dl (50-200) 04/28/20 07:12 Total LDL Cholesterol 97 mg/dL (5-100) 04/28/20 07:12 HDL Cholesterol 33 mg/dl (40-60) L 04/28/20 07:12 TSH 11.50 uIU/ml (0.358-3.74) H 04/28/20 07:12 Urine Color Yellow 04/27/20 16:30 Urine Appearance Clear 04/27/20 16:30 Urine pH 5.0 (4.5-8) 04/27/20 16:30 Urine Protein Trace (NEGATIVE) 04/27/20 16:30 Urine Glucose (UA) 2+ (NEGATIVE) H 04/27/20 16:30 Urine Ketones Negative (NEGATIVE) 04/27/20 16:30 Urine Blood Trace-lysed (NEGATIVE) 04/27/20 16:30 Urine Nitrite Negative (NEGATIVE) 04/27/20 16:30 Urine Bilirubin Negative (NEGATIVE) 04/27/20 16:30 Urine Urobilinogen 0.2 (0.2-1.0) 04/27/20 16:30 Ur Leukocyte Esterase Negative (NEGATIVE) 04/27/20 16:30 Urine RBC 2-5 /hpf (0-4) 04/27/20 16:30 Urine WBC 0-2 (NEGATIVE) 04/27/20 16:30 Urine Bacteria Few /hpf (NEGATIVE) 04/27/20 16:30 COVID-19 (CHARISMA) Not detected (Not Detected) 04/27/20 14:45 Influenza A (Rapid) Negative (Negative) 04/27/20 18:30 Influenza B (Rapid) Negative (Negative) 04/27/20 18:30 tele: sr echo 04/2020: tds, nl lv/rv, mod tr, mild phtn ecg:sr nl intervals no ischemic changes ct chest: +chf with effs, +sergey pna a/p: 79 f hx htn, dm, here with sob. sob, acute diastolic chf: -no known hx chf but here now with vol overload/diastolic chf -no signs acs -will increase lasix to 40 iv bid. daily chem7 and wts pna: -abx per ID htn: -stable, cont bb dm: -stable, per primary
[2020-04-28] MEDS ORDERED: guaiFENesin/D-METHORPHAN HB 10 ML UNIT-DOSE CUPS PO PRN (19:22)
[2020-04-28] MEDS ORDERED: diphenhydrAMINE HCL 25 MG CAPSULE (FP) PO ONE (20:29)
[2020-04-28] MEDS: ALBUTEROL SO4 2.5/IPRATROPIUM 0.5 INH SOL 3 ML VIAL.NEB. NEB SCH (20:54)
[2020-04-29] MEDS: HEPARIN NA (PORCINE) 5,000 UNITS/ML 1ML VIAL SQ SCH ×3 (05:57→21:17)
[2020-04-29] MEDS: FUROSEMIDE 40 MG/4 ML INJECTABLE VIAL IVPUSH SCH ×2 (05:57→14:30)
--- NOTE | 2020-04-29 06:02 | PN ---
Physical Exam: SUBJECTIVE: Patient seen and examined oob to chair. OBJECTIVE: Vital Signs Period Temp Pulse Resp BP Sys/St Pulse Ox Last 24 Hr 98.0 F-98.9 F 56-68 18-20 123-146/43-79 95-99 GENERAL: Awake, alert, and fully oriented, in no acute distress. LUNGS: CTA, better air movement, improved HEART: Regular rate and rhythm, normal S1 and S2 ABDOMEN: Soft, nontender, not distended UPPER EXTREMITIES: 2+ pulses, warm, well-perfused. No cyanosis. No clubbing. No peripheral edema. LOWER EXTREMITIES: 2+ pulses, warm, well-perfused. No calf tenderness. 2+ b/l edema, improved NEUROLOGICAL: Cranial nerves II-XII intact. Normal speech. Laboratory Results - last 24 hr 04/27/20 04/28/20 04/28/20 14:45 06:08 07:12 WBC 12.3 H RBC 3.40 L Hgb 10.2 L Hct 32.3 L MCV 94.9 MCH 30.1 MCHC 31.7 L RDW 18.0 H Plt Count 373 MPV 8.2 Absolute Neuts (auto) 8.2 Neutrophils % 67.1 Lymphocytes % 21.9 Monocytes % 8.0 Eosinophils % 1.9 Basophils % 1.1 Sodium Potassium Chloride Carbon Dioxide Anion Gap BUN Creatinine Est GFR (CKD-EPI)AfAm Est GFR (CKD-EPI)NonAf POC Glucometer 82 Random Glucose Hemoglobin A1c % Calcium Phosphorus Magnesium Total Bilirubin AST ALT Alkaline Phosphatase Total Protein Albumin Triglycerides Cholesterol Total LDL Cholesterol HDL Cholesterol TSH COVID-19 (CHARISMA) Not detected 04/28/20 04/28/20 04/28/20 07:12 07:12 16:31 WBC RBC Hgb Hct MCV MCH MCHC RDW Plt Count MPV Absolute Neuts (auto) Neutrophils % Lymphocytes % Monocytes % Eosinophils % Basophils % Sodium 139 Potassium 4.4 Chloride 98 Carbon Dioxide 31 Anion Gap 10 BUN 29.0 H Creatinine 1.2 Est GFR (CKD-EPI)AfAm 49.43 Est GFR (CKD-EPI)NonAf 42.65 POC Glucometer 165 Random Glucose 111 H Hemoglobin A1c % 8.2 H Calcium 9.0 Phosphorus 4.8 Magnesium 1.8 Total Bilirubin 0.6 AST 14 L ALT 18 Alkaline Phosphatase 57 Total Protein 6.2 L Albumin 3.3 L Triglycerides 137 Cholesterol 158 Total LDL Cholesterol 97 HDL Cholesterol 33 L TSH 11.50 H COVID-19 (CHARISMA) 04/28/20 04/29/20 22:14 05:55 WBC RBC Hgb Hct MCV MCH MCHC RDW Plt Count MPV Absolute Neuts (auto) Neutrophils % Lymphocytes % Monocytes % Eosinophils % Basophils % Sodium Potassium Chloride Carbon Dioxide Anion Gap BUN Creatinine Est GFR (CKD-EPI)AfAm Est GFR (CKD-EPI)NonAf POC Glucometer 199 183 Random Glucose Hemoglobin A1c % Calcium Phosphorus Magnesium Total Bilirubin AST ALT Alkaline Phosphatase Total Protein Albumin Triglycerides Cholesterol Total LDL Cholesterol HDL Cholesterol TSH COVID-19 (CHARISMA) Active Medications Generic Name Dose Route Start Last Admin Trade Name Freq PRN Reason Stop Dose Admin Albuterol/Ipratropium 1 amp 04/28/20 20:00 04/28/20 20:54 Duoneb - NEB 1 amp RTID JANIA Administration Furosemide 40 mg 04/29/20 06:00 04/29/20 05:57 Lasix Injection - IVPUSH 40 mg BID@0600,1400 JANIA Administration Guaifenesin 10 ml 04/28/20 19:22 04/28/20 22:10 Robitussin Dm - PO 10 ml Q6H PRN Administration COUGH Heparin Sodium (Porcine) 5,000 unit 04/27/20 22:00 04/29/20 05:57 Heparin - SQ 5,000 unit TID JANIA Administration Levofloxacin 750 mg in 150 mls @ 150 mls/hr 04/27/20 18:15 04/28/20 09:39 Levaquin 750 Mg Premixed Ivpb - IVPB 150 mls/hr DAILY JANIA Administration Protocol Insulin Aspart 1 vial 04/27/20 22:00 04/28/20 22:14 Novolog Vial Sliding Scale - SQ 2 units ACHS JANIA Administration Protocol Metoprolol Tartrate 100 mg 04/27/20 22:00 04/28/20 22:10 Lopressor - PO 100 mg BID JANIA Administration Ursodiol 300 mg 04/27/20 22:00 04/28/20 22:11 Actigal - PO 300 mg BID JANIA Administration ASSESSMENT/PLAN: 79 year-old female with a PMH significant for HTN, Type II NIDDM, hypothyroidism, acute cholecystitis/cholangitis, admitted for acute hypoxic respiratory failure. Acute hypoxic respiratory failure --SpO2 75% on room air on arrival to ED Acute diastolic heart failure --newly diagnosed --04/28/20 Echo: LV normal, EF 55-60%; RV normal; mild MR; moderate TR; mild PI --troponins neg x 3 --BLE edema improved, down 2kg from admission --seen by cardiology: increase lasix IVP 40mg to BID --telemetry monitoring Strep pneumoniae pneumonia --CT chest: ILYA focal groundglass opacity suggestive of infiltrate with bilateral pleural effusions --Urine antigen (+) S. pneumonia --remains afebrile, WBC continues to trend down --continue levaquin (day #3) (pen allergic) --duonebs Bilatereal pleural effusions --pleural effusions may be secondary to HF or parapneumonic --CXR this am looks improved; serial CXRs --pulmonary consult Urine colonization --UA was negative, culture growing <100k, asymptomatic, do not treat Hypertension --continue metoprolol Type II NIDDM --Novolog sliding scale coverage Allergic rhinitis --fluticasone, NS nasal spray, Robitussin FEN Fluids: PO intake adequate Electrolytes: replete as indicated Nutrition: low sodium DVT prophylaxis: subq heparin Physical therapy Dispo: continues to require inpatient care. Full code. Visit type - Emergency Visit Emergency Visit: Yes ED Registration Date: 04/27/20 Care time: The patient presented to the Emergency Department on the above date and was hospitalized for further evaluation of their emergent condition. - New Patient This patient is new to me today: No - Critical Care Critical Care patient: No - Medication Review Med list reviewed for High Risk Meds patients 65 and older: Yes
[2020-04-29] MEDS: INSULIN SLIDING SCALE (NOVOLOG) 1 VIAL SQ SCH ×4 (06:03→21:22)
[2020-04-29 08:34] LABS: BASO % 1.1 % (0-2.0); EOS % 2.3 % (0-4.5); HEMATOCRIT 33.5 % (32.4-45.2); HEMOGLOBIN 10.9 GM/dl (10.7-15.3); LYMPH % 17.7 % (8-40); MCH 31.1 pg (25.7-33.7); MCHC 32.6 g/dl (32.0-36.0); MEAN CELL VOLUME 95.4 fl (80-96); MEAN PLT VOLUME 7.7 fl (7.5-11.1); MONO % 10.3 % (3.8-10.2); NEUT % 68.6 % (42.8-82.8); PLATELET COUNT 385 K/MM3 (134-434); RBC 3.51 M/mm3 (3.60-5.2); RDW 17.7 % (11.6-15.6); WHITE BLOOD COUNT 11.7 K/mm3 (4.0-10.8)
[2020-04-29 08:45] LABS: ALBUMIN 3.2 g/dl (3.4-5.0); BILIRUBIN,TOTAL 0.7 mg/dl (0.2-1); CALCIUM 8.5 mg/dl (8.5-10); CREATININE 1.3 mg/dl (0.55-1.3); MAGNESIUM 1.9 mg/dL (1.8-2.4); POTASSIUM 4.2 mmol/L (3.5-5.1)
[2020-04-29] MEDS: METOPROLOL TARTRATE 50 MG TABLET (FP) PO SCH ×2 (09:56→21:11)
[2020-04-29] MEDS: URSODIOL 300 MG CAPSULE PO SCH ×2 (09:56→21:10)
[2020-04-29] MEDS: ALBUTEROL SO4 2.5/IPRATROPIUM 0.5 INH SOL 3 ML VIAL.NEB. NEB SCH ×3 (09:57→20:16)
[2020-04-29] MEDS: FLUTICASONE PROP 0.05% 16 GM NASAL SPRAY NS SCH ×3 (11:17→22:00)
[2020-04-29 13:46] VITALS: BMI 33.7
[2020-04-29] MEDS ORDERED: SODIUM CHLORIDE NASAL SPRAY 44 ML BOTTLE NS PRN (14:33)
--- NOTE | 2020-04-29 15:27 | PN ---
Progress Note, Physician - Current Medication List Current Medications: Active Medications Albuterol/Ipratropium (Duoneb -) 1 amp NEB RTID [facility] Last Admin: 04/29/20 09:57 Dose: 1 amp Documented by: Fluticasone Propionate (Flonase -) 1 spray NS BID [facility] Last Admin: 04/29/20 11:17 Dose: 1 inh Documented by: Furosemide (Lasix Injection -) 40 mg IVPUSH BID@0600,1400 [facility] Last Admin: 04/29/20 05:57 Dose: 40 mg Documented by: Guaifenesin (Robitussin Dm -) 10 ml PO Q6H PRN PRN Reason: COUGH Last Admin: 04/28/20 22:10 Dose: 10 ml Documented by: Heparin Sodium (Porcine) (Heparin -) 5,000 unit SQ TID [facility] Last Admin: 04/29/20 05:57 Dose: 5,000 unit Documented by: Levofloxacin (Levaquin 750 Mg Premixed Ivpb -) 750 mg in 150 mls @ 150 mls/hr IVPB DAILY [facility]; Protocol Last Admin: 04/29/20 09:56 Dose: 150 mls/hr Documented by: Insulin Aspart (Novolog Vial Sliding Scale -) 1 vial SQ ACHS [facility]; Protocol Last Admin: 04/29/20 13:44 Dose: 6 units Documented by: Metoprolol Tartrate (Lopressor -) 100 mg PO BID [facility] Last Admin: 04/29/20 09:56 Dose: 100 mg Documented by: Sodium Chloride ([place] Nasal [place] -) 2 spray NS TID PRN PRN Reason: NASAL CONGESTION Ursodiol (Actigal -) 300 mg PO BID [facility] Last Admin: 04/29/20 09:56 Dose: 300 mg Documented by: - Objective Vital Signs: Vital Signs Temperature 98.8 F 04/29/20 14:00 Pulse Rate 77 04/29/20 14:00 Respiratory Rate 16 04/29/20 14:00 Blood Pressure 134/47 L 04/29/20 14:00 O2 Sat by Pulse Oximetry (%) 93 L 04/29/20 14:00 Labs: CBC, BMP 04/29/20 06:57 04/29/20 06:57 INR, PTT INR 1.22 (0.82-1.09) 04/27/20 14:45
[2020-04-29] MEDS ORDERED: PT OWN MED DRAWER 7, Y5N ONE (16:19)
[2020-04-30] MEDS: HEPARIN NA (PORCINE) 5,000 UNITS/ML 1ML VIAL SQ SCH ×3 (05:42→21:36)
[2020-04-30] MEDS: FUROSEMIDE 40 MG/4 ML INJECTABLE VIAL IVPUSH SCH ×2 (05:43→15:04)
[2020-04-30] MEDS: INSULIN SLIDING SCALE (NOVOLOG) 1 VIAL SQ SCH ×4 (06:04→21:50)
--- NOTE | 2020-04-30 08:45 | CON.PULM ---
Consult Consult Specialty:: PULMONARY Referred by:: COLT Reason for Consultation:: SOB - History of Present Illness Chief Complaint: SOB History of Present Illness: Increasing shortness of breath for about 3 days, worse on day of admission. Also generalized weakness, fatigue, and anorexia. Denies fever/chills, body aches. Patient denies headache, URI symptoms, sore throat, cough, chest pain, abdominal pain, nausea, vomiting, diarrhea, diaphoresis, vaginal bleeding or discharge, urinary tract symptoms, visual or focal neurologic symptoms. - History Source History Provided By: Patient, Medical Record Limitations to Obtaining History: No Limitations - Past Medical History [employer]: No: Alzheimer's Cardio/Vascular: Yes: HTN ...: No Endocrine: Yes: Diabetes Mellitus, Hypothyroidism - Past Surgical History Past Surgical History: Yes: None - Alcohol/Substance Use Hx Alcohol Use: No History of Substance Use: reports: None - Smoking History Smoking history: Never smoked Have you smoked in the past 12 months: No - Social History Usual Living Arrangement: Other (near her daughter) ADL: Independent History of Recent Travel: No Home Medications - Allergies Allergies/Adverse Reactions: Allergies Allergy/AdvReac Type Severity Reaction Status Date / Time Penicillins Allergy Severe throat Verified 04/27/20 15:02 swelling egg Allergy Verified 04/27/20 15:02 shellfish derived Allergy Verified 04/27/20 15:02 sulfur [From Sulfur-8] Allergy Verified 04/27/20 15:02 yellow dye Allergy Verified 04/27/20 15:02 - Home Medications Home Medications: Ambulatory Orders Glipizide [Glipizide Xl] 5 mg PO BID 12/01/18 Hydrochlorothiazide [Hctz -] 12.5 mg PO DAILY 12/01/18 Metformin HCl [Glucophage] 500 mg PO BID 12/01/18 Ursodiol [Actigal -] 300 mg PO BID capsule 12/08/18 Metoprolol Tartrate 100 mg PO BID 04/27/20 Family Medical History Family History: Unremarkable Review of Systems - Review of Systems Constitutional: reports: Lethargy. denies: Fever, Loss of Appetite Eyes: denies: Blurred Vision HENT: denies: Difficult Swallowing Neck: denies: Decreased ROM Cardiovascular: reports: Shortness of Breath. denies: Chest Pain Respiratory: reports: Cough, Exercise Intolerance, Orthopnea, SOB, SOB on Exertion. denies: Hemoptysis Gastrointestinal: denies: Abdominal Pain Genitourinary: denies: Burning Physical Exam Vital Sings: Vital Signs Temperature 98 F 04/30/20 05:55 Pulse Rate 67 04/30/20 05:55 Respiratory Rate 18 04/30/20 05:55 Blood Pressure 146/61 04/30/20 05:55 O2 Sat by Pulse Oximetry (%) 97 04/30/20 07:54 Constitutional: Yes: Calm Eyes: Yes: EOM Intact HENT: Yes: Normocephalic Neck: Yes: Trachea Midline Cardiovascular: Yes: S1, S2 Respiratory: Yes: Diminished (at bases) Gastrointestinal: Yes: Normal Bowel Sounds Edema: LLE: 1+, RLE: 1+ Neurological: Yes: Alert Labs: CBC, BMP 04/29/20 06:57 04/29/20 06:57 Imaging - Results Chest X-ray: Report Reviewed, Image Reviewed Cat Scan: Report Reviewed, Image Reviewed EKG: Report Reviewed Problem List - Problems (1) Pleural effusion Code(s): J90 - PLEURAL EFFUSION, NOT ELSEWHERE CLASSIFIED (2) CHF (congestive heart failure) Code(s): I50.9 - HEART FAILURE, UNSPECIFIED Qualifiers: Heart failure type: unspecified Heart failure chronicity: acute Qualified Code(s): I50.9 - Heart failure, unspecified (3) Hypertension Code(s): I10 - ESSENTIAL (PRIMARY) HYPERTENSION Assessment/Plan ACUTE LVDD B/L PLEURAL EFFUSION DOUBT PNEUMONIC PROCESS IMPROVING ON CURRENT TREATMENT ENTEROCOCCUS IN URINE LESS THAN 100K COLONY COUNT CONTINUE CURRENT TREATMENT WOULD STOP LEVAQUIN AFTER 5 DAYS Quinton HARRIS MD
--- NOTE | 2020-04-30 09:35 | PN ---
Physical Exam: SUBJECTIVE: Patient seen and examined at bedside, reports feeling much better, denies cp, sob,palpitations, cough,chills, abdominal pain, N/V/D or urinary symptoms. OBJECTIVE: Vital Signs Period Temp Pulse Resp BP Sys/St Pulse Ox Last 24 Hr 97.8 F-98.8 F 62-77 16-18 125-148/47-78 93-97 GENERAL: The patient is awake, alert, and fully oriented, in no acute distress. HEAD: Normal with no signs of trauma. EYES: PERRL, extraocular movements intact, sclera anicteric, conjunctiva clear. No ptosis. ENT: Ears normal, nares patent, oropharynx clear without exudates, moist mucous membranes. NECK: Trachea midline, full range of motion, supple. LUNGS: Breath sounds equal, clear to auscultation bilaterally, no wheezes, positive crackles, no accessory muscle use. HEART: Regular rate and rhythm, S1, S2 without murmur, rub or gallop. ABDOMEN: Soft, nontender, nondistended, normoactive bowel sounds, no guarding, no rebound, no hepatosplenomegaly, no masses. EXTREMITIES: 2+ pulses, warm, well-perfused, 1-2 +edema with mild redness NEUROLOGICAL: Cranial nerves II through XII grossly intact. Normal speech, gait not observed. PSYCH: Normal mood, normal affect. SKIN: Warm, dry, normal turgor, no rashes or lesions noted Laboratory Results - last 24 hr 04/29/20 04/29/20 04/29/20 13:40 18:48 21:12 POC Glucometer 300 236 252 04/30/20 06:01 POC Glucometer 229 Active Medications Generic Name Dose Route Start Last Admin Trade Name Freq PRN Reason Stop Dose Admin Albuterol/Ipratropium 1 amp 04/28/20 20:00 04/29/20 20:16 Duoneb - NEB 1 amp RTID JANIA Administration Fluticasone Propionate 1 spray 04/29/20 10:45 04/29/20 22:00 Flonase - NS 1 spray BID JANIA Administration Furosemide 40 mg 04/29/20 06:00 04/30/20 05:43 Lasix Injection - IVPUSH 40 mg BID@0600,1400 JANIA Administration Guaifenesin 10 ml 04/28/20 19:22 04/28/20 22:10 Robitussin Dm - PO 10 ml Q6H PRN Administration COUGH Heparin Sodium (Porcine) 5,000 unit 04/27/20 22:00 04/30/20 05:42 Heparin - SQ 5,000 unit TID JANIA Administration Levofloxacin 750 mg in 150 mls @ 150 mls/hr 04/27/20 18:15 04/29/20 09:56 Levaquin 750 Mg Premixed Ivpb - IVPB 150 mls/hr DAILY JANIA Administration Protocol Insulin Aspart 1 vial 04/27/20 22:00 04/30/20 06:04 Novolog Vial Sliding Scale - SQ 4 units ACHS JANIA Administration Protocol Metoprolol Tartrate 100 mg 04/27/20 22:00 04/29/20 21:11 Lopressor - PO 100 mg BID JANIA Administration Sodium Chloride 2 spray 04/29/20 14:33 [place] Nasal [place] - NS TID PRN NASAL CONGESTION Ursodiol 300 mg 04/27/20 22:00 04/29/20 21:10 Actigal - PO 300 mg BID JANIA Administration Microbiology 04/27/20 16:40 Blood Culture - Preliminary Blood - Peripheral Venous NO GROWTH OBTAINED AFTER 48 HOURS, INCUBATION TO CONTINUE FOR 3 DAYS. 04/27/20 16:42 Blood Culture - Preliminary Blood - Peripheral Venous NO GROWTH OBTAINED AFTER 48 HOURS, INCUBATION TO CONTINUE FOR 3 DAYS. 04/27/20 16:30 Urine Culture - Preliminary Urine - Urine Clean Catch Lactose Fermenting Neg Bacilli Group D Strep Or Entero Coccus Chest x-ray shows moderate to severe congestive changes. CT chest: ILYA focal groundglass opacity suggestive of infiltrate with bilateral pleural effusions ASSESSMENT/PLAN: 79 year-old female with a PMH significant for HTN, Type II NIDDM, hypothyroidism, recent acute cholecystitis/cholangitis s/p treatment,admitted for acute hypoxic respiratory failure. *Acute hypoxic respiratory failure -CT chest Vascular congestion, CM - SpO2 75% on room air on arrival to ED - now on RA *Acute diastolic heart failure-newly diagnosed - BNP -3026 -04/28/20 Echo: LV normal, EF 55-60%; RV normal; mild MR; moderate TR; mild PI -troponins neg x 3 - Wt 34kg>33 - tele monitoring - cardiology following - will cont on Lasix 40mg BID -will resume on home dose Ramipril - will monitor I&O's and daily wt - will monitor renal functions closely *Strep pneumoniae pneumonia -CT chest: ILYA focal groundglass opacity suggestive of infiltrate with bilateral pleural effusions -Urine antigen (+) S. pneumonia -remains afebrile, WBC continues to trend down 17>11 -continue levaquin (day #4) (pen allergic) -duonebs - ID following *Bilateral pleural effusions -pleural effusions may be secondary to HF or parapneumonic -CXR showed improvement - serial CXRs -pulmonary consult *Urine colonization -UA was negative, culture growing <100k, asymptomatic, do not treat *Hypertension -continue Atenolol, Ramipril and Verapamil (meds clarified) *Type II NIDDM -Novolog sliding scale coverage - FS AC& HS - carb consistent diet - Hgb Alc 8.2 *Allergic rhinitis -fluticasone, NS nasal spray, Robitussin *Hx of GB stone - will cont on Actigel * Hypothyroidism - will cont on Synthroid FEN Fluids: PO intake adequate Electrolytes: replete as indicated Nutrition: low sodium DVT prophylaxis: subq heparin Physical therapy Dispo: continues to require inpatient care. Full code. Visit type - Emergency Visit Emergency Visit: Yes ED Registration Date: 04/27/20 Care time: The patient presented to the Emergency Department on the above date and was hospitalized for further evaluation of their emergent condition. - New Patient This patient is new to me today: Yes Date on this admission: 04/30/20 - Critical Care Critical Care patient: No - Medication Review Med list reviewed for High Risk Meds patients 65 and older: Yes
[2020-04-30] MEDS: URSODIOL 300 MG CAPSULE PO SCH ×2 (09:44→21:36)
[2020-04-30] MEDS: METOPROLOL TARTRATE 50 MG TABLET (FP) PO SCH (09:44)
[2020-04-30] MEDS: ALBUTEROL SO4 2.5/IPRATROPIUM 0.5 INH SOL 3 ML VIAL.NEB. NEB SCH ×3 (09:44→20:24)
[2020-04-30] MEDS: RAMIPRIL 5 MG CAPSULE PO SCH (09:48)
[2020-04-30] MEDS: LEVOTHYROXINE NA 125 MCG TABLET (FP) PO SCH (09:48)
[2020-04-30] MEDS: FLUTICASONE PROP 0.05% 16 GM NASAL SPRAY NS SCH ×2 (09:49→21:36)
--- NOTE | 2020-04-30 10:38 | PN ---
Progress Note, Physician History of Present Illness: stable no new issues breathing better - Current Medication List Current Medications: Active Medications Albuterol/Ipratropium (Duoneb -) 1 amp NEB RTID [facility] Last Admin: 04/30/20 09:44 Dose: 1 amp Documented by: Cholecalciferol (Vitamin D3 -) 2,000 unit PO DAILY [facility] Fluticasone Propionate (Flonase -) 1 spray NS BID [facility] Last Admin: 04/30/20 09:49 Dose: 1 spray Documented by: Furosemide (Lasix Injection -) 40 mg IVPUSH BID@0600,1400 [facility] Last Admin: 04/30/20 05:43 Dose: 40 mg Documented by: Guaifenesin (Robitussin Dm -) 10 ml PO Q6H PRN PRN Reason: COUGH Last Admin: 04/28/20 22:10 Dose: 10 ml Documented by: Heparin Sodium (Porcine) (Heparin -) 5,000 unit SQ TID [facility] Last Admin: 04/30/20 05:42 Dose: 5,000 unit Documented by: Levofloxacin (Levaquin 750 Mg Premixed Ivpb -) 750 mg in 150 mls @ 150 mls/hr IVPB DAILY [facility]; Protocol Last Admin: 04/30/20 09:44 Dose: 150 mls/hr Documented by: Insulin Aspart (Novolog Vial Sliding Scale -) 1 vial SQ ACHS [facility]; Protocol Last Admin: 04/30/20 06:04 Dose: 4 units Documented by: Levothyroxine Sodium (Synthroid -) 125 mcg PO DAILY@0700 [facility] Last Admin: 04/30/20 09:48 Dose: 125 mcg Documented by: Metoprolol Tartrate (Lopressor -) 100 mg PO BID [facility] Last Admin: 04/30/20 09:44 Dose: 100 mg Documented by: Ramipril (Altace -) 5 mg PO DAILY [facility] Last Admin: 04/30/20 09:48 Dose: 5 mg Documented by: Sodium Chloride ([place] Nasal [place] -) 2 spray NS TID PRN PRN Reason: NASAL CONGESTION Ursodiol (Actigal -) 300 mg PO BID [facility] Last Admin: 04/30/20 09:44 Dose: 300 mg Documented by: - Objective Vital Signs: Vital Signs Temperature 98 F 04/30/20 05:55 Pulse Rate 67 04/30/20 05:55 Respiratory Rate 18 04/30/20 05:55 Blood Pressure 146/61 04/30/20 05:55 O2 Sat by Pulse Oximetry (%) 97 04/30/20 07:54 Constitutional: Yes: No Distress, Calm Cardiovascular: Yes: Regular Rate and Rhythm Respiratory: Yes: Regular, CTA Bilaterally Gastrointestinal: Yes: Normal Bowel Sounds, Soft Musculoskeletal: Yes: WNL Extremities: Yes: WNL Neurological: Yes: Alert, Oriented Psychiatric: Yes: Alert, Oriented Labs: CBC, BMP 04/29/20 06:57 04/29/20 06:57 INR, PTT INR 1.22 (0.82-1.09) 04/27/20 14:45 Assessment/Plan 79 year-old female with a PMH significant for HTN, Type II NIDDM, hypothyroidism, acute cholecystitis/cholangitis, admitted for acute hypoxic respiratory failure. Acute hypoxic respiratory failure Acute diastolic heart failure Strep pneumoniae pneumonia Hypertension Type II NIDDM plan continue abx rest as per the team
[2020-05-01] MEDS: LEVOTHYROXINE NA 125 MCG TABLET (FP) PO SCH (06:38)
[2020-05-01] MEDS: HEPARIN NA (PORCINE) 5,000 UNITS/ML 1ML VIAL SQ SCH ×3 (06:38→21:06)
[2020-05-01] MEDS: FUROSEMIDE 40 MG/4 ML INJECTABLE VIAL IVPUSH SCH ×2 (06:39→14:13)
[2020-05-01] MEDS: INSULIN SLIDING SCALE (NOVOLOG) 1 VIAL SQ SCH ×4 (07:27→21:54)
[2020-05-01] MEDS: ALBUTEROL SO4 2.5/IPRATROPIUM 0.5 INH SOL 3 ML VIAL.NEB. NEB SCH ×3 (08:15→20:57)
--- NOTE | 2020-05-01 09:19 | PN ---
Physical Exam: SUBJECTIVE: Patient seen and examined at bedside,reports feeling better, denies any cough,sob, or cp. Concerns about lower ext edema. OBJECTIVE: Vital Signs Period Temp Pulse Resp BP Sys/St Pulse Ox Last 24 Hr 97.9 F-98.6 F 58-65 16-19 125-155/49-54 94-96 GENERAL: The patient is awake, alert, and fully oriented, in no acute distress. HEAD: Normal with no signs of trauma. EYES: PERRL, extraocular movements intact, sclera anicteric, conjunctiva clear. No ptosis. ENT: Ears normal, nares patent, oropharynx clear without exudates, moist mucous membranes. NECK: Trachea midline, full range of motion, supple. LUNGS: Breath sounds diminished- LLE,no wheezes, no crackles, no accessory muscle use. HEART: Regular rate and rhythm, S1, S2 without murmur, rub or gallop. ABDOMEN: Soft, nontender, nondistended, normoactive bowel sounds, no guarding, no rebound, no hepatosplenomegaly, no masses. EXTREMITIES: 2+ pulses, warm, well-perfused, 1-2 +edema with redness, positive tenderness NEUROLOGICAL: Cranial nerves II through XII grossly intact. Normal speech, gait not observed. PSYCH: Normal mood, normal affect. SKIN: Warm, dry, normal turgor, no rashes or lesions noted Laboratory Results - last 24 hr 04/30/20 04/30/20 05/01/20 18:28 21:46 06:51 POC Glucometer 350 306 247 Active Medications Generic Name Dose Route Start Last Admin Trade Name Oriana PRN Reason Stop Dose Admin Albuterol/Ipratropium 1 amp 04/28/20 20:00 04/30/20 20:24 Duoneb - NEB 1 amp RTID JANIA Administration Atenolol 100 mg 05/01/20 10:00 Tenormin - PO DAILY JANIA Cholecalciferol 2,000 unit 05/01/20 10:00 Vitamin D3 - PO DAILY JANIA Fluticasone Propionate 1 spray 04/29/20 10:45 04/30/20 21:36 Flonase - NS 1 spray BID JANIA Administration Furosemide 40 mg 04/29/20 06:00 05/01/20 06:39 Lasix Injection - IVPUSH 40 mg BID@0600,1400 JANIA Administration Guaifenesin 10 ml 04/28/20 19:22 04/28/20 22:10 Robitussin Dm - PO 10 ml Q6H PRN Administration COUGH Heparin Sodium (Porcine) 5,000 unit 04/27/20 22:00 05/01/20 06:38 Heparin - SQ 5,000 unit TID JANIA Administration Levofloxacin 750 mg in 150 mls @ 150 mls/hr 04/27/20 18:15 04/30/20 09:44 Levaquin 750 Mg Premixed Ivpb - IVPB 150 mls/hr DAILY JANIA Administration Protocol Insulin Aspart 1 vial 04/27/20 22:00 05/01/20 07:27 Novolog Vial Sliding Scale - SQ 4 units ACHS JANIA Administration Protocol Levothyroxine Sodium 125 mcg 04/30/20 09:35 05/01/20 06:38 Synthroid - PO 125 mcg DAILY@0700 JANIA Administration Ramipril 5 mg 04/30/20 10:00 04/30/20 09:48 Altace - PO 5 mg DAILY JANIA Administration Sodium Chloride 2 spray 04/29/20 14:33 [place] Nasal [place] - NS TID PRN NASAL CONGESTION Ursodiol 300 mg 04/27/20 22:00 04/30/20 21:36 Actigal - PO 300 mg BID JANIA Administration Verapamil HCl 360 mg 05/01/20 10:00 [place] Sr Cap PO DAILY [facility] Chest x-ray shows moderate to severe congestive changes. CT chest: ILYA focal groundglass opacity suggestive of infiltrate with bilateral pleural effusions ASSESSMENT/PLAN: 79 year-old female with a PMH significant for HTN, Type II NIDDM, hypothyroidism, recent acute cholecystitis/cholangitis s/p treatment,admitted for acute hypoxic respiratory failure. *Acute hypoxic respiratory failure- resolved -CT chest Vascular congestion, CM - SpO2 75% on room air on arrival to ED - now on RA *Acute diastolic heart failure-newly diagnosed - BNP -3026 -04/28/20 Echo: LV normal, EF 55-60%; RV normal; mild MR; moderate TR; mild PI -troponins neg x 3 - Wt 208lbs to 196 lbs - tele monitoring- no cardiac events - cardiology following - will cont on Lasix 40mg BID -will resume on home dose Ramipril - will monitor I&O's and daily wt - will monitor renal functions closely *Strep pneumoniae pneumonia -CT chest: ILYA focal groundglass opacity suggestive of infiltrate with bilateral pleural effusions -Urine antigen (+) S. pneumonia -remains afebrile, WBC continues to trend down 17>11 -continue levaquin (day #5) (pen allergic) -duonebs - ID following *Bilateral pleural effusions -pleural effusions may be secondary to HF or parapneumonic -CXR showed improvement - serial CXRs -pulmonary consult done * Bilateral ower ext cellulitis -US to r/o DVT - added Doxy as per ID, will cont on Levaquin - afebrile with mild leukocytosis- trending down *Urine colonization -UA was negative, culture growing <100k, asymptomatic, do not treat *Hypertension -continue Atenolol, Ramipril and Verapamil (meds clarified) *Type II NIDDM- BS remains elevated -Novolog sliding scale coverage - FS AC& HS - carb consistent diet - Hgb Alc 8.2 - added Levemir and Pre meals Insulin *Allergic rhinitis -fluticasone, NS nasal spray, Robitussin *Hx of GB stone - will cont on Actigel * Hypothyroidism - will cont on Synthroid - TSH -11.5, will check free T4 FEN Fluids: PO intake adequate Electrolytes: replete as indicated Nutrition: low sodium DVT prophylaxis: subq heparin Physical therapy eval done, rec Home with Assist Dispo: continues to require inpatient care. Full code. Visit type - Emergency Visit Emergency Visit: Yes ED Registration Date: 04/27/20 Care time: The patient presented to the Emergency Department on the above date and was hospitalized for further evaluation of their emergent condition. - New Patient This patient is new to me today: No - Critical Care Critical Care patient: No - Medication Review Med list reviewed for High Risk Meds patients 65 and older: Yes
[2020-05-01 09:23] LABS: BASO % 1.9 % (0-2.0); EOS % 6.5 % (0-4.5); HEMATOCRIT 33.3 % (32.4-45.2); HEMOGLOBIN 11.1 GM/dl (10.7-15.3); MCH 31.3 pg (25.7-33.7); MCHC 33.2 g/dl (32.0-36.0); MEAN CELL VOLUME 94.3 fl (80-96); MEAN PLT VOLUME 8.3 fl (7.5-11.1); MONO % 9.6 % (3.8-10.2); PLATELET COUNT 321 K/MM3 (134-434); RBC 3.53 M/mm3 (3.60-5.2); RDW 17.3 % (11.6-15.6); WHITE BLOOD COUNT 11.5 K/mm3 (4.0-10.8)
[2020-05-01 09:38] LABS: CALCIUM 8.4 mg/dl (8.5-10); CREATININE 1.3 mg/dl (0.55-1.3); POTASSIUM 3.8 mmol/L (3.5-5.1)
[2020-05-01] MEDS ORDERED: PATIENT'S OWN MEDICATION (NON-FORMULARY) (Atenolol [Tenormin -] 100 MG) PO SCH (10:00)
[2020-05-01] MEDS ORDERED: VERAPAMIL 360 MG PO SCH (10:00)
[2020-05-01] MEDS ORDERED: VERAPAMIL HCL SR 180 MG CAP SUSTAINED RELEASE PO SCH (10:00)
[2020-05-01] MEDS: FLUTICASONE PROP 0.05% 16 GM NASAL SPRAY NS SCH ×2 (10:01→21:06)
[2020-05-01] MEDS: RAMIPRIL 5 MG CAPSULE PO SCH (10:01)
[2020-05-01] MEDS: URSODIOL 300 MG CAPSULE PO SCH ×2 (10:01→21:06)
[2020-05-01] MEDS: CHOLECALCIFEROL (VIT D3) 1,000 UNIT (25 MCG) TABLET PO SCH (10:02)
[2020-05-01] MEDS: ATENOLOL 50 MG TABLET (FP) PO SCH (11:00)
[2020-05-01] MEDS: Insulin (LOG) Aspart 100 UNITS/ML VIAL SQ SCH ×2 (11:46→16:28)
[2020-05-01] MEDS ORDERED: POTASSIUM CHLORIDE TABS 20 MEQ TABLET.ER (FP) PO ONE (13:00)
[2020-05-01] MEDS ORDERED: DOXYCYCLINE HYCLATE 100 MG CAPSULE PO ONE (13:00)
[2020-05-01] MEDS: DOXYCYCLINE HYCLATE 100 MG CAPSULE PO SCH (21:06)
[2020-05-01] MEDS: INSULIN (LEVEMIR) 100 UNITS/ML UNITS SQ SCH (21:55)
[2020-05-02] MEDS: HEPARIN NA (PORCINE) 5,000 UNITS/ML 1ML VIAL SQ SCH ×3 (06:47→21:16)
[2020-05-02] MEDS: INSULIN SLIDING SCALE (NOVOLOG) 1 VIAL SQ SCH ×4 (06:47→21:17)
[2020-05-02] MEDS: FUROSEMIDE 40 MG/4 ML INJECTABLE VIAL IVPUSH SCH ×2 (06:47→14:40)
[2020-05-02] MEDS: Insulin (LOG) Aspart 100 UNITS/ML VIAL SQ SCH ×3 (06:47→16:15)
[2020-05-02] MEDS: LEVOTHYROXINE NA 125 MCG TABLET (FP) PO SCH (06:47)
[2020-05-02 08:11] LABS: BASO % 1.1 % (0-2.0); EOS % 4.9 % (0-4.5); HEMATOCRIT 34.2 % (32.4-45.2); HEMOGLOBIN 10.9 GM/dl (10.7-15.3); LYMPH % 23.7 % (8-40); MCH 30.4 pg (25.7-33.7); MEAN CELL VOLUME 95.1 fl (80-96); MEAN PLT VOLUME 7.7 fl (7.5-11.1); MONO % 7.5 % (3.8-10.2); NEUT % 62.8 % (42.8-82.8); PLATELET COUNT 338 K/MM3 (134-434); RBC 3.59 M/mm3 (3.60-5.2); RDW 17.7 % (11.6-15.6); WHITE BLOOD COUNT 11.6 K/mm3 (4.0-10.8)
[2020-05-02 08:14] LABS: CALCIUM 8.4 mg/dl (8.5-10); CREATININE 1.3 mg/dl (0.55-1.3); POTASSIUM 3.5 mmol/L (3.5-5.1)
--- NOTE | 2020-05-02 08:57 | PN ---
Progress Note, Physician History of Present Illness: stable no complaints b/l edema of the leg - Current Medication List Current Medications: Active Medications Albuterol/Ipratropium (Duoneb -) 1 amp NEB RTID [facility] Last Admin: 05/01/20 20:57 Dose: 1 amp Documented by: Atenolol (Tenormin -) 100 mg PO DAILY [facility] Last Admin: 05/01/20 11:00 Dose: 100 mg Documented by: Cholecalciferol (Vitamin D3 -) 2,000 unit PO DAILY [facility] Last Admin: 05/01/20 10:02 Dose: 2,000 unit Documented by: Doxycycline Hyclate (Vibramycin -) 100 mg PO BID [facility] Last Admin: 05/01/20 21:06 Dose: 100 mg Documented by: Fluticasone Propionate (Flonase -) 1 spray NS BID [facility] Last Admin: 05/01/20 21:06 Dose: 1 spray Documented by: Furosemide (Lasix Injection -) 40 mg IVPUSH BID@0600,1400 [facility] Last Admin: 05/02/20 06:47 Dose: 40 mg Documented by: Guaifenesin (Robitussin Dm -) 10 ml PO Q6H PRN PRN Reason: COUGH Last Admin: 04/28/20 22:10 Dose: 10 ml Documented by: Heparin Sodium (Porcine) (Heparin -) 5,000 unit SQ TID [facility] Last Admin: 05/02/20 06:47 Dose: 5,000 unit Documented by: Levofloxacin (Levaquin 750 Mg Premixed Ivpb -) 750 mg in 150 mls @ 150 mls/hr IVPB DAILY [facility]; Protocol Last Admin: 05/01/20 10:01 Dose: 150 mls/hr Documented by: Insulin Aspart (Novolog Vial Sliding Scale -) 1 vial SQ ACHS [facility]; Protocol Last Admin: 05/02/20 06:47 Dose: Not Given Documented by: Insulin Aspart (Novolog) 3 units SQ TIDAC [facility] Last Admin: 05/02/20 06:47 Dose: 3 units Documented by: Insulin Detemir (Levemir Vial) 10 units SQ HS [facility] Last Admin: 05/01/20 21:55 Dose: 10 units Documented by: Levothyroxine Sodium (Synthroid -) 125 mcg PO DAILY@0700 [facility] Last Admin: 05/02/20 06:47 Dose: 125 mcg Documented by: Ramipril (Altace -) 5 mg PO DAILY [facility] Last Admin: 05/01/20 10:01 Dose: 5 mg Documented by: Sodium Chloride ([place] Nasal [place] -) 2 spray NS TID PRN PRN Reason: NASAL CONGESTION Ursodiol (Actigal -) 300 mg PO BID [facility] Last Admin: 05/01/20 21:06 Dose: 300 mg Documented by: Verapamil HCl (Calan Sr -) 360 mg PO DAILY [facility] - Objective Vital Signs: Vital Signs Temperature 98.2 F 05/02/20 06:00 Pulse Rate 63 05/02/20 06:00 Respiratory Rate 18 05/02/20 06:00 Blood Pressure 117/47 L 05/02/20 06:00 O2 Sat by Pulse Oximetry (%) 99 05/02/20 06:00 Constitutional: Yes: No Distress, Calm Cardiovascular: Yes: S1, S2 Respiratory: Yes: Regular, CTA Bilaterally Gastrointestinal: Yes: Normal Bowel Sounds, Soft Musculoskeletal: Yes: WNL Extremities: Yes: WNL Neurological: Yes: Alert, Oriented Psychiatric: Yes: Alert, Oriented Labs: CBC, BMP 05/02/20 07:10 05/02/20 07:10 INR, PTT INR 1.22 (0.82-1.09) 04/27/20 14:45 Assessment/Plan 79 year-old female with a PMH significant for HTN, Type II NIDDM, hypothyroidism, acute cholecystitis/cholangitis, admitted for acute hypoxic respiratory failure. Acute hypoxic respiratory failure Acute diastolic heart failure Strep pneumoniae pneumonia Hypertension Type II NIDDM plan continue abx rest as per the team complee a 7 day course repeat imaging studies
[2020-05-02] MEDS: ALBUTEROL SO4 2.5/IPRATROPIUM 0.5 INH SOL 3 ML VIAL.NEB. NEB SCH ×3 (09:38→20:03)
[2020-05-02] MEDS: DOXYCYCLINE HYCLATE 100 MG CAPSULE PO SCH ×2 (09:39→21:18)
[2020-05-02] MEDS: URSODIOL 300 MG CAPSULE PO SCH ×2 (09:39→21:17)
[2020-05-02] MEDS: CHOLECALCIFEROL (VIT D3) 1,000 UNIT (25 MCG) TABLET PO SCH (09:40)
[2020-05-02] MEDS: FLUTICASONE PROP 0.05% 16 GM NASAL SPRAY NS SCH ×2 (09:41→21:18)
--- NOTE | 2020-05-02 10:37 | PN ---
Physical Exam: SUBJECTIVE: Patient seen and examined OBJECTIVE: Vital Signs Period Temp Pulse Resp BP Sys/St Pulse Ox Last 24 Hr 97.9 F-98.4 F 61-69 17-20 113-126/39-47 94-99 GENERAL: Awake, alert, and fully oriented, in no acute distress. LUNGS: CTA, better air movement, improved HEART: Regular rate and rhythm, normal S1 and S2 ABDOMEN: Soft, nontender, not distended UPPER EXTREMITIES: 2+ pulses, warm, well-perfused. No cyanosis. No clubbing. No peripheral edema. LOWER EXTREMITIES: 2+ pulses, warm, well-perfused. No calf tenderness. 2+ b/l edema, improved NEUROLOGICAL: Cranial nerves II-XII intact. Normal speech. Laboratory Results - last 24 hr 05/01/20 05/01/20 05/01/20 06:50 06:50 11:36 WBC RBC Hgb Hct MCV MCH MCHC RDW Plt Count MPV Absolute Neuts (auto) Neutrophils % Lymphocytes % Monocytes % Eosinophils % Basophils % ESR 27 Sodium Potassium Chloride Carbon Dioxide Anion Gap BUN Creatinine Est GFR (CKD-EPI)AfAm Est GFR (CKD-EPI)NonAf POC Glucometer 334 Random Glucose Calcium Magnesium Free T4 0.80 05/01/20 05/01/20 05/02/20 16:18 21:49 06:40 WBC RBC Hgb Hct MCV MCH MCHC RDW Plt Count MPV Absolute Neuts (auto) Neutrophils % Lymphocytes % Monocytes % Eosinophils % Basophils % ESR Sodium Potassium Chloride Carbon Dioxide Anion Gap BUN Creatinine Est GFR (CKD-EPI)AfAm Est GFR (CKD-EPI)NonAf POC Glucometer 349 273 211 Random Glucose Calcium Magnesium Free T4 05/02/20 05/02/20 07:10 07:10 WBC 11.6 H RBC 3.59 L Hgb 10.9 Hct 34.2 MCV 95.1 MCH 30.4 MCHC 32.0 RDW 17.7 H Plt Count 338 MPV 7.7 Absolute Neuts (auto) 7.3 Neutrophils % 62.8 Lymphocytes % 23.7 Monocytes % 7.5 Eosinophils % 4.9 H Basophils % 1.1 ESR Sodium 136 Potassium 3.5 Chloride 94 L Carbon Dioxide 31 Anion Gap 11 BUN 28.0 H Creatinine 1.3 Est GFR (CKD-EPI)AfAm 44.87 Est GFR (CKD-EPI)NonAf 38.71 POC Glucometer Random Glucose 205 H Calcium 8.4 L Magnesium 2.0 Free T4 Active Medications Generic Name Dose Route Start Last Admin Trade Name Freq PRN Reason Stop Dose Admin Albuterol/Ipratropium 1 amp 04/28/20 20:00 05/02/20 09:38 Duoneb - NEB 1 amp RTID JANIA Administration Atenolol 100 mg 05/01/20 10:00 05/01/20 11:00 Tenormin - PO 100 mg DAILY JANIA Administration Cholecalciferol 2,000 unit 05/01/20 10:00 05/02/20 09:40 Vitamin D3 - PO 2,000 unit DAILY JANIA Administration Doxycycline Hyclate 100 mg 05/01/20 22:00 05/02/20 09:39 Vibramycin - PO 100 mg BID JANIA Administration Fluticasone Propionate 1 spray 04/29/20 10:45 05/02/20 09:41 Flonase - NS 1 spray BID JANIA Administration Furosemide 40 mg 04/29/20 06:00 05/02/20 06:47 Lasix Injection - IVPUSH 40 mg BID@0600,1400 JANIA Administration Guaifenesin 10 ml 04/28/20 19:22 04/28/20 22:10 Robitussin Dm - PO 10 ml Q6H PRN Administration COUGH Heparin Sodium (Porcine) 5,000 unit 04/27/20 22:00 05/02/20 06:47 Heparin - SQ 5,000 unit TID JANIA Administration Levofloxacin 750 mg in 150 mls @ 150 mls/hr 04/27/20 18:15 05/02/20 09:40 Levaquin 750 Mg Premixed Ivpb - IVPB 150 mls/hr DAILY JANIA Administration Protocol Insulin Aspart 1 vial 04/27/20 22:00 05/02/20 06:47 Novolog Vial Sliding Scale - SQ Not Given ACHS [facility] Protocol Insulin Aspart 3 units 05/01/20 11:00 05/02/20 06:47 Novolog SQ 3 units TIDAC JANIA Administration Insulin Detemir 10 units 05/01/20 22:00 05/01/20 21:55 Levemir Vial SQ 10 units HS JANIA Administration Levothyroxine Sodium 125 mcg 04/30/20 09:35 05/02/20 06:47 Synthroid - PO 125 mcg DAILY@0700 JANIA Administration Ramipril 5 mg 04/30/20 10:00 05/01/20 10:01 Altace - PO 5 mg DAILY JANIA Administration Sodium Chloride 2 spray 04/29/20 14:33 [place] Nasal [place] - NS TID PRN NASAL CONGESTION Ursodiol 300 mg 04/27/20 22:00 05/02/20 09:39 Actigal - PO 300 mg BID JANIA Administration Verapamil HCl 360 mg 05/02/20 10:00 Calan Sr - PO DAILY JANIA ASSESSMENT/PLAN: 79 year-old female with a PMH significant for HTN, Type II NIDDM, hypothyroidism, acute cholecystitis/cholangitis, admitted for acute hypoxic respiratory failure. Acute hypoxic respiratory failure, resolved --SpO2 75% on room air on arrival to ED --pre post today: 98% on room air at rest, 92% on room air with flat surface ambulation Acute diastolic heart failure --newly diagnosed --04/28/20 Echo: LV normal, EF 55-60%; RV normal; mild MR; moderate TR; mild PI --troponins neg x 3 --BLE edema improved, down 5.3kg from admission --continue Lasix BID --repeat CXR pending Hypertension --diastolic BPs have been running <60 for several days since starting Ramipril; will hold --continue atenolol, verapamil Strep pneumoniae pneumonia --CT chest: ILYA focal ground glass opacity suggestive of infiltrate with bilateral pleural effusions --Urine antigen (+) S. pneumonia --remains afebrile, WBC continues to trend down --continue levaquin (day #6- tomorrow last dose) --duonebs Bilateral lower extremity cellulitis --continue doxycycline Bilateral pleural effusions --pleural effusions may be secondary to HF or parapneumonic --serial CXRs --pulmonary consult Urine colonization --UA was negative, culture growing <100k, asymptomatic, do not treat Type II NIDDM --Novolog sliding scale coverage --Levemir 10U Allergic rhinitis --fluticasone, NS nasal spray, Robitussin Cholecystitis h/o cholangitis --continue ursodial Hypothhyroidism --continue levothyroxine FEN Fluids: PO intake adequate Electrolytes: replete as indicated Nutrition: low sodium DVT prophylaxis: subq heparin Physical therapy Dispo: continues to require inpatient care. Full code. Visit type - Emergency Visit Emergency Visit: Yes ED Registration Date: 04/27/20 Care time: The patient presented to the Emergency Department on the above date and was hospitalized for further evaluation of their emergent condition. - New Patient This patient is new to me today: No - Critical Care Critical Care patient: No - Discharge Referral [facility]erred to [facility] Med P.C[facility] No - Medication Review Med list reviewed for High Risk Meds patients 65 and older: Yes
[2020-05-02] MEDS: VERAPAMIL HCL 180 MG E.R. TABLET PO SCH (10:51)
[2020-05-02] MEDS: RAMIPRIL 5 MG CAPSULE PO SCH (10:52)
[2020-05-02] MEDS: ATENOLOL 50 MG TABLET (FP) PO SCH (10:52)
--- NOTE | 2020-05-02 13:36 | PN ---
Progress Note (short form) - Note Progress Note: cc: sob hpi: 79 f hx htn, dm, here with sob. Past few days has noticed mild sob, do, and le edema. Also general weakness. No cp palps dizzy loc pnd orthopnea. No known hx hrt dz. s: sob improved, le edema mild but improving. no cp palps dizzy Current Medications Generic Name Dose Route Start Last Admin Trade Name Freq PRN Reason Stop Dose Admin Albuterol/Ipratropium 1 amp 04/28/20 20:00 05/02/20 09:38 Duoneb - NEB 1 amp RTID JANIA Administration Atenolol 100 mg 05/01/20 10:00 05/02/20 10:52 Tenormin - PO Not Given DAILY JANIA Cholecalciferol 2,000 unit 05/01/20 10:00 05/02/20 09:40 Vitamin D3 - PO 2,000 unit DAILY JANIA Administration Doxycycline Hyclate 100 mg 05/01/20 22:00 05/02/20 09:39 Vibramycin - PO 100 mg BID JANIA Administration Fluticasone Propionate 1 spray 04/29/20 10:45 05/02/20 09:41 Flonase - NS 1 spray BID JANIA Administration Furosemide 40 mg 04/29/20 06:00 05/02/20 06:47 Lasix Injection - IVPUSH 40 mg BID@0600,1400 JANIA Administration Guaifenesin 10 ml 04/28/20 19:22 04/28/20 22:10 Robitussin Dm - PO 10 ml Q6H PRN Administration COUGH Heparin Sodium (Porcine) 5,000 unit 04/27/20 22:00 05/02/20 06:47 Heparin - SQ 5,000 unit TID JANIA Administration Levofloxacin 750 mg in 150 mls @ 150 mls/hr 04/27/20 18:15 05/02/20 09:40 Levaquin 750 Mg Premixed Ivpb - IVPB 150 mls/hr DAILY JANIA Administration Protocol Insulin Aspart 1 vial 04/27/20 22:00 05/02/20 11:14 Novolog Vial Sliding Scale - SQ 6 units ACHS JANIA Administration Protocol Insulin Aspart 3 units 05/01/20 11:00 05/02/20 11:13 Novolog SQ 3 units TIDAC JANIA Administration Insulin Detemir 10 units 05/01/20 22:00 05/01/20 21:55 Levemir Vial SQ 10 units HS JANIA Administration Levothyroxine Sodium 125 mcg 04/30/20 09:35 05/02/20 06:47 Synthroid - PO 125 mcg DAILY@0700 JANIA Administration Sodium Chloride 2 spray 04/29/20 14:33 [place] Nasal [place] - NS TID PRN NASAL CONGESTION Ursodiol 300 mg 04/27/20 22:00 05/02/20 09:39 Actigal - PO 300 mg BID JANIA Administration Verapamil HCl 360 mg 05/02/20 10:00 05/02/20 10:51 Calan Sr - PO Not Given DAILY JANIA Vital Signs Period Temp Pulse Resp BP Sys/St Pulse Ox Last 24 Hr 97.9 F-98.4 F 61-76 -20 113-126/39-47 92-99 nad no jvd rrr s1s2 nomrg cta bl nl eff aao3 1+le edema bl, no c/c abd nt nd pos bs no jaundice diaphoresis pos dp pt no carotid bruits CBC, BMP 05/02/20 07:10 05/02/20 07:10 tele: sr echo 04/2020: tds, nl lv/rv, mod tr, mild phtn ecg:sr nl intervals no ischemic changes ct chest: +chf with effs, +sergey pna a/p: 79 f hx htn, dm, here with sob. sob, acute diastolic chf: -no known hx chf but here now with vol overload/diastolic chf -no signs acs -vol status improving, continue iv lasix, daily chem7 and wts pna: -abx per ID htn: -stable, cont bb dm: -stable, per primary
[2020-05-02] MEDS: INSULIN (LEVEMIR) 100 UNITS/ML UNITS SQ SCH (21:17)
[2020-05-03] MEDS: LEVOTHYROXINE NA 125 MCG TABLET (FP) PO SCH (06:20)
[2020-05-03] MEDS: HEPARIN NA (PORCINE) 5,000 UNITS/ML 1ML VIAL SQ SCH (06:20)
[2020-05-03] MEDS: FUROSEMIDE 40 MG/4 ML INJECTABLE VIAL IVPUSH SCH (06:21)
[2020-05-03] MEDS: INSULIN SLIDING SCALE (NOVOLOG) 1 VIAL SQ SCH (07:22)
[2020-05-03] MEDS: Insulin (LOG) Aspart 100 UNITS/ML VIAL SQ SCH (07:22)
--- NOTE | 2020-05-03 09:24 | DS ---
Physical Exam: SUBJECTIVE: Patient seen and examined OBJECTIVE: Vital Signs Period Temp Pulse Resp BP Sys/St Pulse Ox Last 24 Hr 97.6 F-99.0 F 64-79 16-18 113-150/47-52 92-98 PHYSICAL EXAM GENERAL: The patient is awake, alert, and fully oriented, in no acute distress. HEAD: Normal with no signs of trauma. EYES: PERRL, extraocular movements intact, sclera anicteric, conjunctiva clear. ENT: Ears normal, nares patent, oropharynx clear without exudates, moist mucous membranes. NECK: Trachea midline, full range of motion, supple. LUNGS: Breath sounds equal, clear to auscultation bilaterally, no wheezes, no crackles, no accessory muscle use. HEART: Regular rate and rhythm, S1, S2 without murmur, rub or gallop. ABDOMEN: Soft, nontender, nondistended, normoactive bowel sounds, no guarding, no rebound, no hepatosplenomegaly, no masses. EXTREMITIES: 2+ pulses, warm, well-perfused, no edema. NEUROLOGICAL: Cranial nerves II through XII grossly intact. Normal speech, gait not observed. PSYCH: Normal mood, normal affect. SKIN: Warm, dry, normal turgor, no rashes or lesions noted. LABS Laboratory Results - last 24 hr 05/02/20 05/02/20 05/02/20 11:10 16:11 21:01 POC Glucometer 279 265 301 05/03/20 06:16 POC Glucometer 187 HOSPITAL COURSE: Date of Admission:04/27/20 Date of Discharge: 05/03/20 Pre hospital course 79 year-old female with a PMH significant for HTN, Type II NIDDM, hypothyroidism , acute cholecystitis/cholangitis, presents to ED with SOB x 3 days. Also generalized weakness, fatigue, and anorexia. Denies fever/chills, body aches. Hospitalized at [facility] in November 2018 for acute cholecystitis/cholangitis. Was rehospitalized several months ago at [facility] in [place] for same problem, patient states they were unable to remove the gallbladder because it was infected and she had drainage tubes for a time. Denies abdominal pain, n/v/d. Denies ever being told she has heart failure. ER course was notable for: (1) SpO2 75% on room air (2) WBC 17.0k, glucose 459 (4) Lasix IVP 40mg x 1; insulin 20U Subsequent hospital course 79 year-old female with a PMH significant for HTN, Type II NIDDM, hypothyroidism, acute cholecystitis/cholangitis, admitted for acute hypoxic respiratory failure. Acute hypoxic respiratory failure, resolved --SpO2 75% on room air on arrival to ED --pre post today: 98% on room air at rest, 92% on room air with flat surface ambulation Acute diastolic heart failure --newly diagnosed --04/28/20 Echo: LV normal, EF 55-60%; RV normal; mild MR; moderate TR; mild PI --troponins neg x 3 --BLE edema improved with aggressive diuresis, down 5.3kg from admission --discharge on PO Lasix 40mg daily Hypertension --diastolic BPs ran low and bradycardic at times --per cardiology, d/c verapamil and continue on atenolol and Ramipril at discharge Strep pneumoniae pneumonia --CT chest: ILYA focal ground glass opacity suggestive of infiltrate with bilateral pleural effusions --Urine antigen (+) S. pneumonia --remains afebrile, WBC continues to trend down --completed 7 day course of levaquin Bilateral lower extremity cellulitis --continue doxycycline for 4 more days at discharge Bilateral pleural effusions --likely secondary to CHF (less likely parapneumonic); improved with diuresis Urine colonization --UA was negative, culture growing <100k, asymptomatic, did not treat Type II NIDDM --Novolog sliding scale coverage --Levemir 10U Allergic rhinitis --fluticasone, NS nasal spray, Robitussin Cholecystitis h/o cholangitis --continued ursodial Hypothhyroidism --continued levothyroxine Minutes to complete discharge: 35 Discharge Summary Problems reviewed: Yes Reason For Visit: sob and abdominal pain Current Active Problems CHF (congestive heart failure) (Acute) Pleural effusion (Acute) Condition: Improved - Instructions Diet, Activity, Other Instructions: Two prescriptions have been sent to your pharmacy. One is for doxycyline which is an antibiotic. The other is for Lasix which is a diuretic/water pill. Take these medications as directed. It is important you follow up with your primary care provider within one week of your discharge. It is also recommended you follow up with a director of institutional research. You were seen in the hospital by Dr. Smith. If you would like to follow up Dr. Smith her contact information is enclosed in this discharge packet. Please make an appointment to see a director of institutional research 1-2 weeks from your discharge. Return to the emergency department for any new or worsening symptoms. Referrals: Alessia Smith MD [Staff Physician] - 1 Week Roni Rose [Primary Care Provider] - 1 Week Disposition: HOME - Home Medications Comprehensive Discharge Medication List: Ambulatory Orders Glipizide [Glipizide Xl] 5 mg PO BID 12/01/18 Hydrochlorothiazide [Hctz -] 12.5 mg PO DAILY 12/01/18 Metformin HCl [Glucophage] 500 mg PO BID 12/01/18 Ursodiol [Actigal -] 300 mg PO BID capsule 12/08/18 Atenolol [Tenormin -] 100 mg PO DAILY 04/30/20 Levothyroxine [Synthroid -] 125 mcg PO DAILY 04/30/20 Ramipril 5 mg PO DAILY 04/30/20 Verapamil Sr 360 mg PO DAILY 04/30/20 This patient is new to me today: No Emergency Visit: Yes ED Registration Date: 04/27/20 Care time: The patient presented to the Emergency Department on the above date and was hospitalized for further evaluation of their emergent condition. Critical Care patient: No - Discharge Referral Referred to [facility] No
[2020-05-03 09:33] VITALS: TEMP 97.5
[2020-05-03] MEDS: ATENOLOL 50 MG TABLET (FP) PO SCH (09:54)
[2020-05-03] MEDS: ALBUTEROL SO4 2.5/IPRATROPIUM 0.5 INH SOL 3 ML VIAL.NEB. NEB SCH (09:54)
[2020-05-03] MEDS: URSODIOL 300 MG CAPSULE PO SCH (09:54)
[2020-05-03] MEDS: VERAPAMIL HCL 180 MG E.R. TABLET PO SCH (09:55)
[2020-05-03] MEDS: DOXYCYCLINE HYCLATE 100 MG CAPSULE PO SCH (09:56)
[2020-05-03] MEDS: FLUTICASONE PROP 0.05% 16 GM NASAL SPRAY NS SCH (09:56)
[2020-05-03] MEDS: CHOLECALCIFEROL (VIT D3) 1,000 UNIT (25 MCG) TABLET PO SCH (09:57)
--- NOTE | 2020-05-03 10:19 | PN ---
Progress Note (short form) - Note Progress Note: cc: sob s: sob resolved, edema improving. no cp palps dizzy Current Medications Generic Name Dose Route Start Last Admin Trade Name Freq PRN Reason Stop Dose Admin Albuterol/Ipratropium 1 amp 04/28/20 20:00 05/03/20 09:54 Duoneb - NEB 1 amp RTID JANIA Administration Atenolol 100 mg 05/01/20 10:00 05/03/20 09:54 Tenormin - PO 100 mg DAILY JANIA Administration Cholecalciferol 2,000 unit 05/01/20 10:00 05/03/20 09:57 Vitamin D3 - PO 2,000 unit DAILY JANIA Administration Doxycycline Hyclate 100 mg 05/01/20 22:00 05/03/20 09:56 Vibramycin - PO 100 mg BID JANIA Administration Fluticasone Propionate 1 spray 04/29/20 10:45 05/03/20 09:56 Flonase - NS 1 spray BID JANIA Administration Furosemide 40 mg 04/29/20 06:00 05/03/20 06:21 Lasix Injection - IVPUSH 40 mg BID@0600,1400 AJNIA Administration Guaifenesin 10 ml 04/28/20 19:22 04/28/20 22:10 Robitussin Dm - PO 10 ml Q6H PRN Administration COUGH Heparin Sodium (Porcine) 5,000 unit 04/27/20 22:00 05/03/20 06:20 Heparin - SQ 5,000 unit TID JANIA Administration Levofloxacin 750 mg in 150 mls @ 150 mls/hr 04/27/20 18:15 05/03/20 09:54 Levaquin 750 Mg Premixed Ivpb - IVPB 150 mls/hr DAILY JANIA Administration Protocol Insulin Aspart 1 vial 04/27/20 22:00 05/03/20 07:22 Novolog Vial Sliding Scale - SQ Not Given ACHS [facility] Protocol Insulin Aspart 3 units 05/01/20 11:00 05/03/20 07:22 Novolog SQ Not Given TIDAC JANIA Insulin Detemir 10 units 05/01/20 22:00 05/02/20 21:17 Levemir Vial SQ 10 units HS JANIA Administration Levothyroxine Sodium 125 mcg 04/30/20 09:35 05/03/20 06:20 Synthroid - PO 125 mcg DAILY@0700 JANIA Administration Sodium Chloride 2 spray 04/29/20 14:33 [place]ena [place] Nasal [place] - NS TID PRN NASAL CONGESTION Ursodiol 300 mg 04/27/20 22:00 05/03/20 09:54 Actigal - PO 300 mg BID JANIA Administration Verapamil HCl 360 mg 05/02/20 10:00 05/03/20 09:55 Calan Sr - PO 360 mg DAILY JANIA Administration Vital Signs Period Temp Pulse Resp BP Sys/St Pulse Ox Last 24 Hr 97.5 F-99.0 F 68-79 16-18 115-150/49-52 92-97 nad no jvd rrr s1s2 nomrg cta bl nl eff aao3 1+le edema bl, no c/c abd nt nd pos bs no jaundice diaphoresis pos dp pt no carotid bruits Laboratory Last Values WBC 11.6 K/mm3 (4.0-10.8) H 05/02/20 07:10 RBC 3.59 M/mm3 (3.60-5.2) L 05/02/20 07:10 Hgb 10.9 GM/dl (10.7-15.3) 05/02/20 07:10 Hct 34.2 % (32.4-45.2) 05/02/20 07:10 MCV 95.1 fl (80-96) 05/02/20 07:10 MCH 30.4 pg (25.7-33.7) 05/02/20 07:10 MCHC 32.0 g/dl (32.0-36.0) 05/02/20 07:10 RDW 17.7 % (11.6-15.6) H 05/02/20 07:10 Plt Count 338 K/MM3 (134-434) 05/02/20 07:10 MPV 7.7 fl (7.5-11.1) 05/02/20 07:10 Absolute Neuts (auto) 7.3 K/mm3 05/02/20 07:10 Neutrophils % 62.8 % (42.8-82.8) 05/02/20 07:10 Lymphocytes % 23.7 % (8-40) 05/02/20 07:10 Monocytes % 7.5 % (3.8-10.2) 05/02/20 07:10 Eosinophils % 4.9 % (0-4.5) H 05/02/20 07:10 Basophils % 1.1 % (0-2.0) 05/02/20 07:10 ESR 27 mm/hr (0-30) 05/01/20 06:50 PT with INR 13.6 SEC (10.2-13.0) H 04/27/20 14:45 INR 1.22 (0.82-1.09) 04/27/20 14:45 D-Dimer 959 ng/ml (0-500) H 04/27/20 14:45 Sodium 136 mmol/L (136-145) 05/02/20 07:10 Potassium 3.5 mmol/L (3.5-5.1) 05/02/20 07:10 Chloride 94 mmol/L (98-107) L 05/02/20 07:10 Carbon Dioxide 31 mmol/L (21-32) 05/02/20 07:10 Anion Gap 11 MMOL/L (8-16) 05/02/20 07:10 BUN 28.0 mg/dl (7-18) H 05/02/20 07:10 Creatinine 1.3 mg/dl (0.55-1.3) 05/02/20 07:10 Est GFR (CKD-EPI)AfAm 44.87 05/02/20 07:10 Est GFR (CKD-EPI)NonAf 38.71 05/02/20 07:10 POC Glucometer 187 UNITS (80-120) 05/03/20 06:16 Random Glucose 205 mg/dl (74-106) H 05/02/20 07:10 Hemoglobin A1c % 8.2 % (4.2-6.3) H 04/28/20 07:12 Lactic Acid 0.9 mmol/L (0.4-2.0) 04/27/20 16:20 Calcium 8.4 mg/dl (8.5-10) L 05/02/20 07:10 Phosphorus 4.8 mg/dl (2.5-4.9) 04/28/20 07:12 Magnesium 2.0 mg/dL (1.8-2.4) 05/02/20 07:10 Total Bilirubin 0.7 mg/dl (0.2-1) 04/29/20 06:57 AST 14 U/L (15-37) L 04/29/20 06:57 ALT 18 U/L (13-61) 04/29/20 06:57 Alkaline Phosphatase 54 U/L (45-117) 04/29/20 06:57 Creatine Kinase 28 U/L (26-192) 04/27/20 14:45 Troponin I < 0.02 ng/ml (0.00-0.05) 04/28/20 04:00 Troponin I Cancelled 04/28/20 04:00 B-Natriuretic Peptide 3026.83 pg/ml (5-450) H 04/27/20 14:45 B-Natriuretic Peptide Cancelled 04/27/20 14:45 Total Protein 6.0 g/dl (6.4-8.2) L 04/29/20 06:57 Albumin 3.2 g/dl (3.4-5.0) L 04/29/20 06:57 Triglycerides 137 mg/dl (0-150) 04/28/20 07:12 Cholesterol 158 mg/dl (50-200) 04/28/20 07:12 Total LDL Cholesterol 97 mg/dL (5-100) 04/28/20 07:12 HDL Cholesterol 33 mg/dl (40-60) L 04/28/20 07:12 TSH 11.50 uIU/ml (0.358-3.74) H 04/28/20 07:12 Free T4 0.80 ng/dl (0.76-1.46) 05/01/20 06:50 Urine Color Yellow 04/27/20 16:30 Urine Appearance Clear 04/27/20 16:30 Urine pH 5.0 (4.5-8) 04/27/20 16:30 Urine Protein Trace (NEGATIVE) 04/27/20 16:30 Urine Glucose (UA) 2+ (NEGATIVE) H 04/27/20 16:30 Urine Ketones Negative (NEGATIVE) 04/27/20 16:30 Urine Blood Trace-lysed (NEGATIVE) 04/27/20 16:30 Urine Nitrite Negative (NEGATIVE) 04/27/20 16:30 Urine Bilirubin Negative (NEGATIVE) 04/27/20 16:30 Urine Urobilinogen 0.2 (0.2-1.0) 04/27/20 16:30 Ur Leukocyte Esterase Negative (NEGATIVE) 04/27/20 16:30 Urine RBC 2-5 /hpf (0-4) 04/27/20 16:30 Urine WBC 0-2 (NEGATIVE) 04/27/20 16:30 Urine Bacteria Few /hpf (NEGATIVE) 04/27/20 16:30 COVID-19 (CHARISMA) Not detected (Not Detected) 04/27/20 14:45 Influenza A (Rapid) Negative (Negative) 04/27/20 18:30 Influenza B (Rapid) Negative (Negative) 04/27/20 18:30 tele: sr echo 04/2020: tds, nl lv/rv, mod tr, mild phtn ecg:sr nl intervals no ischemic changes ct chest: +chf with effs, +sergey pna a/p: 79 f hx htn, dm, here with sob. sob, acute diastolic chf: -no known hx chf but here now with vol overload/diastolic chf -no signs acs -vol status improved with IV lasix, change to lasix 40 mg PO daily - advised low salt diet, follow up with cardiology - stable for dc from cardiac perspective pna: -abx per ID htn: -stable, cont bb dm: -stable, per primary
[2020-05-03 13:50] VITALS: BP 115/49; PULSE 63
[2020-05-04] MEDS ORDERED: FUROSEMIDE 40 MG TABLET (FP) PO SCH (10:00)
== END 2020-05-03 14:26 | disposition home or self-care (01) | DRG 291 ==
LOC: FER 13:54 → SUPCPDRO 13:54 → FM/S 17:39
PROVIDERS: ADMIT Internal Medicine; ATTEND Nurse Practitioner Acute Care
DX: I11.0 Hypertensive heart disease with heart failure (principal); J96.01 Acute respiratory failure with hypoxia; J15.4 Pneumonia due to other streptococci; I50.31 Acute diastolic (congestive) heart failure; L03.116 Cellulitis of left lower limb; L03.115 Cellulitis of right lower limb; D72.829 Elevated white blood cell count, unspecified; E11.9 Type 2 diabetes mellitus without complications; J30.9 Allergic rhinitis, unspecified; K81.9 Cholecystitis, unspecified; E03.9 Hypothyroidism, unspecified; E87.70 Fluid overload, unspecified
CPT/HCPCS: 36415; 71045-TC-FY; 71250-TC; 80048; 80053; 80061; 81003; 81015; 82550; 82962; 83036; 83605; 83721; 83735; 83880; 84100; 84439; 84443; 84484; 85025; 85379; 85610; 85651; 87040; 87086; 87186; 87804; 87899; 93005; 93306-TC; 93970-TC; 94640; 97116-GP; 97162-GP; 99285-25; C9803; J1644; U0003

== ENCOUNTER 2021-06-30 19:44 | Inpatient (IN) | payer OTHER, MEDICARE ==
[2021-06-30 21:28] LABS: ALBUMIN 3.6 g/dl (3.4-5.0); BILIRUBIN,TOTAL 0.7 mg/dl (0.2-1); CALCIUM 8.9 mg/dl (8.5-10); CREATININE 1.7 mg/dl (0.55-1.3); TOT PROT 6.3 g/dl (6.4-8.2)
[2021-06-30 22:23] LABS: BASO % 1.5 % (0-2.0); EOS % 0.6 % (0-4.5); HEMATOCRIT 39.5 % (32.4-45.2); LYMPH % 12.4 % (8-40); MCH 27.9 pg (25.7-33.7); MCHC 30.4 g/dl (32.0-36.0); MEAN CELL VOLUME 91.6 fl (80-96); MEAN PLT VOLUME 8.5 fl (7.5-11.1); MONO % 12.2 % (3.8-10.2); NEUT % 73.3 % (42.8-82.8); PLATELET COUNT 254 10^3/uL (134-434); RBC 4.31 M/mm3 (3.60-5.2); RDW 20.4 % (11.6-15.6); WHITE BLOOD COUNT 13.9 K/mm3 (4.0-10.0)
[2021-06-30] MEDS ORDERED: SODIUM POLYSTYRENE SULFONATE 15 GM/60 ML BOTTLE PO ONE ×2 (22:31→22:48)
[2021-06-30] MEDS ORDERED: SODIUM POLYSTYRENE SULFONATE 15 GM/60 ML BOTTLE ONE ×2 (22:38→22:41)
[2021-07-01 02:05] VITALS: BMI 33.4
[2021-07-01] MEDS: INSULIN SLIDING SCALE (NOVOLOG) 1 VIAL SQ SCH ×4 (07:30→21:21)
[2021-07-01] MEDS: LEVOTHYROXINE NA 125 MCG TABLET (FP) PO SCH (07:32)
[2021-07-01 08:30] LABS: ALBUMIN 3.2 g/dl (3.4-5.0); BILIRUBIN,TOTAL 0.8 mg/dl (0.2-1); CALCIUM 8.3 mg/dl (8.5-10); CREATININE 1.6 mg/dl (0.55-1.3); MAGNESIUM 2.1 mg/dL (1.8-2.4); TOT PROT 5.9 g/dl (6.4-8.2)
[2021-07-01 09:18] LABS: BASO % 1.5 % (0-2.0); EOS % 1.2 % (0-4.5); HEMATOCRIT 36.8 % (32.4-45.2); HEMOGLOBIN 11.5 GM/dL (10.7-15.3); LYMPH % 13.3 % (8-40); MCH 28.7 pg (25.7-33.7); MCHC 31.2 g/dl (32.0-36.0); MEAN PLT VOLUME 8.2 fl (7.5-11.1); MONO % 16.4 % (3.8-10.2); NEUT % 67.6 % (42.8-82.8); PLATELET COUNT 239 10^3/uL (134-434); RDW 20.5 % (11.6-15.6); WHITE BLOOD COUNT 10.6 K/mm3 (4.0-10.0)
[2021-07-01] MEDS ORDERED: FUROSEMIDE 40 MG TABLET (FP) PO SCH (10:00)
[2021-07-01] MEDS: ATENOLOL 50 MG TABLET (FP) PO SCH (10:27)
[2021-07-01] MEDS: URSODIOL 300 MG CAPSULE PO SCH ×2 (10:27→21:21)
[2021-07-01 11:20] LABS: ANISOCYTOSIS 1+; MACROCYTOSIS 0; PLATELET ESTIMATE NORMAL
[2021-07-01] MEDS ORDERED: ALBUTEROL SO4 2.5/IPRATROPIUM 0.5 INH SOL 3 ML VIAL.NEB. NEB PRN (12:00)
[2021-07-01] MEDS ORDERED: methylPREDNISolone NA SUCC 40 MG/1 ML VIAL IVPUSH ONE (12:39)
[2021-07-01] MEDS ORDERED: FUROSEMIDE 40 MG/4 ML INJECTABLE VIAL IVPUSH ONE (12:54)
[2021-07-01] MEDS: HEPARIN NA (PORCINE) 5,000 UNITS/ML 1ML VIAL SQ SCH ×2 (13:22→21:21)
[2021-07-01] MEDS: ALBUTEROL SO4 2.5/IPRATROPIUM 0.5 INH SOL 3 ML VIAL.NEB. NEB SCH ×2 (13:23→18:23)
[2021-07-01] MEDS: LIDOCAINE 5% TOPICAL PATCH TP SCH (13:41)
[2021-07-01] MEDS: methylPREDNISolone NA SUCC 40 MG/1 ML VIAL IVPUSH SCH ×2 (15:08→21:20)
[2021-07-01 17:48] LABS: EPITHELIAL CELLS FEW /hpf
[2021-07-01 18:12] LABS: CREATININE, URINE RANDOM 71.6 mg/dL
[2021-07-01] MEDS: LIDOCAINE PATCH REMOVAL MC SCH (21:21)
[2021-07-01] MEDS ORDERED: FAMOTIDINE 40 MG TABLET PO SCH (22:00)
[2021-07-02] MEDS: ALBUTEROL SO4 2.5/IPRATROPIUM 0.5 INH SOL 3 ML VIAL.NEB. NEB SCH ×4 (00:09→19:22)
[2021-07-02] MEDS: methylPREDNISolone NA SUCC 40 MG/1 ML VIAL IVPUSH SCH ×4 (03:00→22:42)
[2021-07-02] MEDS: HEPARIN NA (PORCINE) 5,000 UNITS/ML 1ML VIAL SQ SCH (06:43)
[2021-07-02] MEDS: INSULIN SLIDING SCALE (NOVOLOG) 1 VIAL SQ SCH ×4 (06:49→22:46)
[2021-07-02] MEDS: LEVOTHYROXINE NA 125 MCG TABLET (FP) PO SCH (06:50)
[2021-07-02 09:06] LABS: ALBUMIN 3.1 g/dl (3.4-5.0); BILIRUBIN,TOTAL 0.6 mg/dl (0.2-1); CALCIUM 8.1 mg/dl (8.5-10); CREATININE 1.9 mg/dl (0.55-1.3); MAGNESIUM 2.1 mg/dL (1.8-2.4); TOT PROT 5.6 g/dl (6.4-8.2)
[2021-07-02] MEDS: LIDOCAINE 5% TOPICAL PATCH TP SCH (09:38)
[2021-07-02] MEDS: ATENOLOL 50 MG TABLET (FP) PO SCH (09:38)
[2021-07-02] MEDS: URSODIOL 300 MG CAPSULE PO SCH ×2 (09:38→22:42)
[2021-07-02] MEDS: FUROSEMIDE 40 MG/4 ML INJECTABLE VIAL IVPUSH SCH (09:39)
[2021-07-02 09:43] LABS: HEMATOCRIT 33.9 % (32.4-45.2); HEMOGLOBIN 10.7 GM/dL (10.7-15.3); MCH 28.7 pg (25.7-33.7); MCHC 31.5 g/dl (32.0-36.0); MEAN PLT VOLUME 8.7 fl (7.5-11.1); PLATELET COUNT 215 10^3/uL (134-434); RBC 3.72 M/mm3 (3.60-5.2); WHITE BLOOD COUNT 7.6 K/mm3 (4.0-10.0)
[2021-07-02] MEDS ORDERED: ENOXAPARIN NA (PORCINE) 100 MG/1 ML DISP.SYRIN SQ SCH (10:00)
[2021-07-02 12:06] LABS: ANISOCYTOSIS 1+; MACROCYTOSIS 0; OVALOCYTE 1+; PLATELET ESTIMATE NORMAL
[2021-07-02] MEDS: ENOXAPARIN NA (PORCINE) 100 MG/1 ML DISP.SYRIN SQ SCH (12:28)
[2021-07-02] MEDS: SODIUM ZIRCONIUM CYCLOSILICATE (LOKELMA) 5 GM PACKET PO SCH (12:28)
[2021-07-02] MEDS: INSULIN (LEVEMIR) 100 UNITS/ML UNITS SQ SCH (22:43)
[2021-07-02] MEDS: LIDOCAINE PATCH REMOVAL MC SCH (22:45)
[2021-07-02] MEDS: FAMOTIDINE 20 MG TABLET PO SCH (22:50)
[2021-07-03] MEDS: ALBUTEROL SO4 2.5/IPRATROPIUM 0.5 INH SOL 3 ML VIAL.NEB. NEB SCH ×5 (02:18→20:31)
[2021-07-03] MEDS: methylPREDNISolone NA SUCC 40 MG/1 ML VIAL IVPUSH SCH ×4 (03:59→21:59)
[2021-07-03] MEDS: INSULIN (LEVEMIR) 100 UNITS/ML UNITS SQ SCH ×2 (06:38→22:03)
[2021-07-03] MEDS: INSULIN SLIDING SCALE (NOVOLOG) 1 VIAL SQ SCH ×4 (06:41→22:11)
[2021-07-03] MEDS: LEVOTHYROXINE NA 125 MCG TABLET (FP) PO SCH (06:43)
[2021-07-03 07:59] LABS: BASO % 0.2 % (0-2.0); HEMATOCRIT 35.5 % (32.4-45.2); HEMOGLOBIN 11.1 GM/dL (10.7-15.3); LYMPH % 4.7 % (8-40); MCH 28.4 pg (25.7-33.7); MCHC 31.2 g/dl (32.0-36.0); MEAN CELL VOLUME 91.3 fl (80-96); MEAN PLT VOLUME 8.9 fl (7.5-11.1); MONO % 11.5 % (3.8-10.2); NEUT % 83.6 % (42.8-82.8); PLATELET COUNT 232 10^3/uL (134-434); RBC 3.89 M/mm3 (3.60-5.2); RDW 20.2 % (11.6-15.6); WHITE BLOOD COUNT 8.3 K/mm3 (4.0-10.0)
[2021-07-03] MEDS ORDERED: ALBUTEROL SO4 2.5/IPRATROPIUM 0.5 INH SOL 3 ML VIAL.NEB. NEB SCH (08:00)
[2021-07-03 08:34] LABS: CHLORIDE 101 mmol/L (98-107); CO2 36 mmol/L (21-32); GLUCOSE,RANDOM 274 mg/dL (74-106); SODIUM 139 mmol/L (136-145)
[2021-07-03 08:35] LABS: ALBUMIN 3.1 g/dl (3.4-5.0); ALK PHOS 62 U/L (45-117); BILIRUBIN,TOTAL 0.6 mg/dL (0.2-1); CALCIUM 8.2 mg/dL (8.5-10.1); MAGNESIUM 2.8 mg/dL (1.8-2.4); SGOT/AST 11 U/L (15-37); SGPT/ALT 42 U/L (13-61); TOT PROT 6.2 g/dl (6.4-8.2)
[2021-07-03] MEDS ORDERED: PT OWN MED DRAWER 7, Y5N ONE ×2 (09:07→21:29)
[2021-07-03] MEDS ORDERED: ENOXAPARIN NA (PORCINE) 100 MG/1 ML DISP.SYRIN SQ SCH (10:00)
[2021-07-03] MEDS: ENOXAPARIN NA (PORCINE) 100 MG/1 ML DISP.SYRIN SQ SCH (10:54)
[2021-07-03] MEDS: SODIUM ZIRCONIUM CYCLOSILICATE (LOKELMA) 5 GM PACKET PO SCH (10:55)
[2021-07-03] MEDS: FUROSEMIDE 40 MG/4 ML INJECTABLE VIAL IVPUSH SCH (10:56)
[2021-07-03] MEDS: ATENOLOL 50 MG TABLET (FP) PO SCH (10:56)
[2021-07-03] MEDS: URSODIOL 300 MG CAPSULE PO SCH ×2 (10:56→21:59)
[2021-07-03] MEDS: LIDOCAINE 5% TOPICAL PATCH TP SCH (10:56)
[2021-07-03] MEDS: Insulin (LOG) Aspart 100 UNITS/ML VIAL SQ SCH (16:06)
[2021-07-03] MEDS: FAMOTIDINE 20 MG TABLET PO SCH (21:59)
[2021-07-03] MEDS ORDERED: FAMOTIDINE 20 MG TABLET PO SCH (22:00)
[2021-07-03] MEDS: LIDOCAINE PATCH REMOVAL MC SCH (22:03)
[2021-07-04] MEDS: methylPREDNISolone NA SUCC 40 MG/1 ML VIAL IVPUSH SCH ×3 (03:22→21:49)
[2021-07-04] MEDS: INSULIN (LEVEMIR) 100 UNITS/ML UNITS SQ SCH ×2 (06:31→21:51)
[2021-07-04] MEDS: INSULIN SLIDING SCALE (NOVOLOG) 1 VIAL SQ SCH ×4 (06:33→21:52)
[2021-07-04] MEDS: Insulin (LOG) Aspart 100 UNITS/ML VIAL SQ SCH ×3 (06:34→16:48)
[2021-07-04] MEDS: LEVOTHYROXINE NA 125 MCG TABLET (FP) PO SCH (06:35)
[2021-07-04] MEDS: ALBUTEROL SO4 2.5/IPRATROPIUM 0.5 INH SOL 3 ML VIAL.NEB. NEB SCH ×4 (07:40→20:47)
[2021-07-04 08:24] LABS: ALBUMIN 3.1 g/dl (3.4-5.0); BLOOD UREA NITROGEN 68.2 mg/dL (7-18); CALCIUM 8.5 mg/dL (8.5-10.1)
[2021-07-04 08:25] LABS: MAGNESIUM 3.1 mg/dL (1.8-2.4)
[2021-07-04 08:27] LABS: CREATININE 1.8 mg/dL (0.55-1.3); PHOSPHOROUS 4.1 mg/dL (2.5-4.9)
[2021-07-04 08:28] LABS: TOT PROT 6.1 g/dl (6.4-8.2)
[2021-07-04 08:29] LABS: BILIRUBIN,TOTAL 0.4 mg/dL (0.2-1)
[2021-07-04 09:06] LABS: HEMATOCRIT 36.4 % (32.4-45.2); HEMOGLOBIN 11.1 GM/dL (10.7-15.3); LYMPH % 4.8 % (8-40); MCHC 30.4 g/dl (32.0-36.0); MEAN CELL VOLUME 92.1 fl (80-96); MEAN PLT VOLUME 9.2 fl (7.5-11.1); MONO % 11.5 % (3.8-10.2); NEUT % 83.7 % (42.8-82.8); PLATELET COUNT 214 10^3/uL (134-434); RBC 3.95 M/mm3 (3.60-5.2); RDW 20.1 % (11.6-15.6); WHITE BLOOD COUNT 7.1 K/mm3 (4.0-10.0)
[2021-07-04 09:09] LABS: EPI CELLS 8 /uL (0-25.1); HYALINE CASTS 2 /uL (0-3.1); PH,URINE 5.5 (5.0-8.0); URINE APPEARANCE CLEAR; URINE BACTERIA 695 /uL (0-1359); URINE BILIRUBIN NEGATIVE (NEGATIVE); URINE COLOR YELLOW; URINE GLUCOSE (UA) NEGATIVE (NEGATIVE); URINE KETONE NEGATIVE (NEGATIVE); URINE LEUK ESTERASE 2+ (NEGATIVE); URINE NITRITE NEGATIVE (NEGATIVE); URINE PROTEIN NEGATIVE (NEGATIVE); URINE RBC 7 /uL (0-23.9); URINE UROBILINOGEN 0.2 mg/dL (0.2-1.0); URINE WBC 219 /uL (0-25.8)
[2021-07-04] MEDS: ENOXAPARIN NA (PORCINE) 100 MG/1 ML DISP.SYRIN SQ SCH (10:01)
[2021-07-04] MEDS: FUROSEMIDE 40 MG/4 ML INJECTABLE VIAL IVPUSH SCH (10:01)
[2021-07-04] MEDS: SODIUM ZIRCONIUM CYCLOSILICATE (LOKELMA) 5 GM PACKET PO SCH (10:02)
[2021-07-04] MEDS: ATENOLOL 50 MG TABLET (FP) PO SCH (10:02)
[2021-07-04] MEDS: LIDOCAINE 5% TOPICAL PATCH TP SCH (10:03)
[2021-07-04] MEDS: URSODIOL 300 MG CAPSULE PO SCH ×2 (10:05→21:49)
[2021-07-04] MEDS ORDERED: MELATONIN 5 MG TABLETS PO PRN (21:45)
[2021-07-04] MEDS: FAMOTIDINE 20 MG TABLET PO SCH (21:49)
[2021-07-04] MEDS: LIDOCAINE PATCH REMOVAL MC SCH (21:52)
[2021-07-05] MEDS: LEVOTHYROXINE NA 125 MCG TABLET (FP) PO SCH (06:41)
[2021-07-05] MEDS: INSULIN (LEVEMIR) 100 UNITS/ML UNITS SQ SCH (06:43)
[2021-07-05] MEDS: Insulin (LOG) Aspart 100 UNITS/ML VIAL SQ SCH ×3 (06:44→18:22)
[2021-07-05] MEDS: INSULIN SLIDING SCALE (NOVOLOG) 1 VIAL SQ SCH ×3 (06:44→18:22)
[2021-07-05 07:27] LABS: BASO % 0.1 % (0-2.0); HEMATOCRIT 36.1 % (32.4-45.2); HEMOGLOBIN 11.3 GM/dL (10.7-15.3); LYMPH % 5.4 % (8-40); MCH 28.2 pg (25.7-33.7); MCHC 31.1 g/dl (32.0-36.0); MEAN CELL VOLUME 90.5 fl (80-96); MEAN PLT VOLUME 8.2 fl (7.5-11.1); MONO % 11.9 % (3.8-10.2); NEUT % 82.6 % (42.8-82.8); PLATELET COUNT 182 10^3/uL (134-434); RBC 3.99 M/mm3 (3.60-5.2); RDW 19.4 % (11.6-15.6); WHITE BLOOD COUNT 8.7 K/mm3 (4.0-10.0)
[2021-07-05] MEDS: ALBUTEROL SO4 2.5/IPRATROPIUM 0.5 INH SOL 3 ML VIAL.NEB. NEB SCH ×4 (07:40→20:05)
[2021-07-05 07:45] LABS: CALCIUM 8.4 mg/dL (8.5-10.1)
[2021-07-05 07:46] LABS: BLOOD UREA NITROGEN 63.3 mg/dL (7-18)
[2021-07-05 07:49] LABS: CREATININE 1.6 mg/dL (0.55-1.3)
[2021-07-05 07:51] LABS: BILIRUBIN,TOTAL 0.6 mg/dL (0.2-1)
[2021-07-05] MEDS: FUROSEMIDE 40 MG/4 ML INJECTABLE VIAL IVPUSH SCH (09:46)
[2021-07-05] MEDS: methylPREDNISolone NA SUCC 40 MG/1 ML VIAL IVPUSH SCH (09:46)
[2021-07-05] MEDS: ATENOLOL 50 MG TABLET (FP) PO SCH (09:46)
[2021-07-05] MEDS: SODIUM ZIRCONIUM CYCLOSILICATE (LOKELMA) 5 GM PACKET PO SCH (09:46)
[2021-07-05] MEDS: ENOXAPARIN NA (PORCINE) 100 MG/1 ML DISP.SYRIN SQ SCH (09:47)
[2021-07-05] MEDS: LIDOCAINE 5% TOPICAL PATCH TP SCH (09:48)
[2021-07-05] MEDS: URSODIOL 300 MG CAPSULE PO SCH (09:54)
[2021-07-05] MEDS ORDERED: SODIUM ZIRCONIUM CYCLOSILICATE (LOKELMA) 5 GM PACKET PO ONE (14:00)
[2021-07-05] MEDS ORDERED: LORazepam 2 MG/ML SDV VIAL IVPB ONE (14:45)
[2021-07-05 14:54] VITALS: BP 149/51; PULSE 71; TEMP 97.9
[2021-07-06] MEDS ORDERED: SODIUM ZIRCONIUM CYCLOSILICATE (LOKELMA) 10 GM PACKET PO SCH (10:00)
[2021-07-06] MEDS ORDERED: FUROSEMIDE 40 MG TABLET (FP) PO SCH (10:00)
[2021-07-06] MEDS ORDERED: predniSONE 20 MG TABLET (UD) PO SCH (10:00)
== END 2021-07-05 20:36 | disposition home or self-care (01) | DRG 193 ==
LOC: FER 19:44 → FM/S 22:46 → UNDOADMIN 07-01 01:01 → FM/S 07-01 01:01 → J4W 07-02 22:34 → JERBED 07-02 22:42 → J4W 07-02 22:44
PROVIDERS: ADMIT Internal Medicine; ATTEND Nurse Practitioner Family
DX: J18.9 Pneumonia, unspecified organism (principal); J96.01 Acute respiratory failure with hypoxia; I50.33 Acute on chronic diastolic (congestive) heart failure; J98.11 Atelectasis; J90 Pleural effusion, not elsewhere classified; N17.9 Acute kidney failure, unspecified; I13.0 Hypertensive heart and chronic kidney disease with heart failure and stage 1 through stage 4 chronic kidney disease, or unspecified chronic kidney disease; L03.115 Cellulitis of right lower limb; L03.116 Cellulitis of left lower limb; J44.1 Chronic obstructive pulmonary disease with (acute) exacerbation; E11.9 Type 2 diabetes mellitus without complications; E03.9 Hypothyroidism, unspecified; E87.70 Fluid overload, unspecified; I27.20 Pulmonary hypertension, unspecified; E87.5 Hyperkalemia; E11.22 Type 2 diabetes mellitus with diabetic chronic kidney disease; B35.1 Tinea unguium; N18.9 Chronic kidney disease, unspecified; K80.20 Calculus of gallbladder without cholecystitis without obstruction; D72.829 Elevated white blood cell count, unspecified; E66.9 Obesity, unspecified; Z68.33 Body mass index [BMI] 33.0-33.9, adult; Z88.1 Allergy status to other antibiotic agents
CPT/HCPCS: 36415; 71045-TC-FY; 71046-TC-FY; 76775-TC; 80053; 81003; 81015; 82550; 82570; 82962; 83036; 83605; 83735; 83880; 84100; 84156; 84300; 84484; 85025; 85379; 87040; 87899; 93005; 93010; 93306-TC; 93970-TC; 94640; 94761; 99285-25; C9803; J1644; U0003; U0005

== ENCOUNTER 2021-08-13 21:24 | Inpatient (IN) | payer OTHER, MEDICARE ==
[2021-08-13] MEDS ORDERED: CALCIUM CHLORIDE 1 GM/10 ML *DISP.SYRIN ONE (21:33)
[2021-08-13] MEDS ORDERED: EPINEPHrine 1:10,000 (P-F SYR) 1 MG/10 ML DISP.SYRIN ONE (21:34)
[2021-08-13] MEDS ORDERED: NITROGLYCERIN 25MG/D5W 250ML 25 MG/250 ML ML IVPB ONE (21:36)
[2021-08-13] MEDS ORDERED: FUROSEMIDE 40 MG/4 ML INJECTABLE VIAL ONE ×2 (21:42→22:01)
[2021-08-13] MEDS ORDERED: SODIUM CHLORIDE 2,722 ML IV ONE (21:48)
[2021-08-13 22:13] LABS: HEMATOCRIT 39.2 % (32.4-45.2); HEMOGLOBIN 11.8 GM/dL (10.7-15.3); MCH 27.8 pg (25.7-33.7); MCHC 30.2 g/dl (32.0-36.0); MEAN CELL VOLUME 92.1 fl (80-96); MEAN PLT VOLUME 8.6 fl (7.5-11.1); PLATELET COUNT 345 10^3/uL (134-434); RBC 4.26 M/mm3 (3.60-5.2); RDW 21.1 % (11.6-15.6); VENOUS BASE EXCESS -3.9 mmol/L (-2-2); VENOUS O2 SATURATION 89.3 % (70-80); WHITE BLOOD COUNT 16.7 K/mm3 (4.0-10.0)
[2021-08-13 22:14] LABS: VENOUS PCO2 91.4 mmHg (38-52); VENOUS PH 7.103 (7.310-7.410)
[2021-08-13 22:20] LABS: INR 1.3 (0.83-1.09)
[2021-08-13] MEDS: VASOPRESSIN 40 UNITS/100 ML BAG IV SCH ×2 (22:30→23:40)
[2021-08-13] MEDS: FENTANYL NS IVPB 500 MCG/100 ML BAG IVPB SCH (22:30)
[2021-08-13 22:33] LABS: CHLORIDE 100 mmol/L (98-107); SODIUM 138 mmol/L (136-145)
[2021-08-13 22:35] LABS: ALBUMIN 2.8 g/dl (3.4-5.0); BLOOD UREA NITROGEN 68.8 mg/dL (7-18); CALCIUM 10.5 mg/dL (8.5-10.1); CO2 26 mmol/L (21-32)
[2021-08-13 22:36] LABS: GLUCOSE,RANDOM 122 mg/dL (74-106)
[2021-08-13 22:38] LABS: CREATININE 2.3 mg/dL (0.55-1.3); SGOT/AST 978 U/L (15-37); SGPT/ALT 918 U/L (13-61)
[2021-08-13 22:41] LABS: ALK PHOS 82 U/L (45-117)
[2021-08-13 22:41] LABS: EPI CELLS 20 /uL (0-25.1); HYALINE CASTS 4 /uL (0-3.1); URINE APPEARANCE CLOUDY; URINE BACTERIA 37 /uL (0-1359); URINE BILIRUBIN NEGATIVE (NEGATIVE); URINE COLOR DK YELLOW; URINE GLUCOSE (UA) NEGATIVE (NEGATIVE); URINE KETONE NEGATIVE (NEGATIVE); URINE LEUK ESTERASE 2+ (NEGATIVE); URINE NITRITE NEGATIVE (NEGATIVE); URINE PROTEIN TRACE (NEGATIVE); URINE RBC 20 /uL (0-23.9); URINE WBC 740 /uL (0-25.8)
[2021-08-13] MEDS: MIDAZOLAM 100 MG in SODIUM CHLORIDE 100 ML IVPB SCH (22:43)
[2021-08-13 22:48] LABS: ANION GAP 12 MMOL/L (8-16)
[2021-08-13 22:54] LABS: ANISOCYTOSIS 2+; MACROCYTOSIS 0; OVALOCYTE 2+; PLATELET ESTIMATE NORMAL; TEAR DROP CELLS 1+
[2021-08-13] MEDS ORDERED: FENTANYL NS IVPB 500 MCG/100 ML BAG IVPB ONE (22:54)
[2021-08-13] MEDS ORDERED: VANCOMYCIN 1 GM in D5W (PRE-DOCKED) 1,000 MG/250 ML IVPB ONE (22:54)
[2021-08-13 22:56] LABS: ALLENS TEST POSITIVE; ARTERIAL BLD GAS O2 SATURATION 22.8 % (95-98); PT'S TEMP 96.4; VENT MODE V-AC; VENT RATE 22
[2021-08-13 22:57] LABS: ARTERIAL BLOOD GAS pH 7.069 (7.350-7.450)
[2021-08-14] MEDS: NOREPINEPHRINE BITARTRATE 16,000 MCG in SODIUM CHLORIDE 484 ML IV SCH (00:30)
[2021-08-14] MEDS ORDERED: MEROPENEM 1 GM VIAL (RESTRICTED TO ID) IVPB ONE ×3 (00:43→21:08)
[2021-08-14] MEDS ORDERED: DEXTROSE 5%-WATER 100 ML IVPB ONE ×3 (00:44→21:08)
[2021-08-14] MEDS: MEROPENEM 1 GM in DEXTROSE 5%-WATER 100 ML IVPB SCH ×3 (00:50→21:27)
[2021-08-14 00:57] LABS: ARTERIAL BLD GAS O2 SATURATION 91.8 % (95-98); ARTERIAL BLOOD GAS BASE EXCESS -3.5 mmol/L (-2-2); ARTERIAL BLOOD GAS PO2 67.6 mmHg (80-100); ARTERIAL BLOOD GAS pH 7.313 (7.350-7.450)
[2021-08-14 00:59] LABS: VENT RATE 35
[2021-08-14] MEDS ORDERED: LACTATED RINGERS SOLUTION 1,000 ML/1,000 ML INFUS.BAG IV STA (00:59)
[2021-08-14] MEDS ORDERED: DEXTROSE 50%-WATER 25 GM/50 ML DISP.SYRIN IVPUSH PRN (01:18)
[2021-08-14 01:35] LABS: LACTIC ACID 7.9 mmol/L (0.4-2.0)
[2021-08-14] MEDS: PROPOFOL 1,000,000 MCG/100 ML VIAL IVPB SCH ×2 (02:42→23:37)
[2021-08-14 02:45] LABS: CHLORIDE 100 mmol/L (98-107); SODIUM 139 mmol/L (136-145)
[2021-08-14] MEDS ORDERED: NITROGLYCERIN 50MG/D5W 250ML 50 MG/250 ML ML IVPB SCH (02:45)
[2021-08-14 02:46] LABS: CALCIUM 9.9 mg/dL (8.5-10.1)
[2021-08-14 02:47] LABS: BLOOD UREA NITROGEN 72.6 mg/dL (7-18); CO2 26 mmol/L (21-32); GLUCOSE,RANDOM 88 mg/dL (74-106)
[2021-08-14 02:50] LABS: CREATININE 2.5 mg/dL (0.55-1.3)
[2021-08-14 03:08] LABS: ANION GAP 12 MMOL/L (8-16)
[2021-08-14] MEDS ORDERED: INSULIN REGULAR HUMAN 100 UNITS/ML *VIAL IVPUSH ONE (03:30)
[2021-08-14] MEDS ORDERED: DEXTROSE 50%-WATER - 25 GM/50 ML VIAL IVPUSH ONE (03:31)
[2021-08-14] MEDS ORDERED: CALCIUM GLUCONATE 10% - 1,000 MG/10 ML VIAL IVPUSH ONE (03:31)
[2021-08-14] MEDS ORDERED: SODIUM CHLORIDE 0.9% 500 ML INFUS.BAG IV ONE (03:49)
[2021-08-14] MEDS ORDERED: DEXTROSE 50%-WATER 25 GM/50 ML DISP.SYRIN ONE (04:32)
[2021-08-14] MEDS: HEPARIN NA (PORCINE) 5,000 UNITS/ML 1ML VIAL SQ SCH ×3 (05:55→21:27)
[2021-08-14 06:05] LABS: ARTERIAL BLD GAS O2 SATURATION 96.5 % (95-98); ARTERIAL BLOOD GAS BASE EXCESS -5.6 mmol/L (-2-2); ARTERIAL BLOOD GAS PO2 90.8 mmHg (80-100); ARTERIAL BLOOD GAS pH 7.338 (7.350-7.450)
[2021-08-14 06:07] LABS: VENT MODE A/C; VENT RATE 24
[2021-08-14] MEDS: INSULIN SLIDING SCALE (NOVOLOG) 1 VIAL SQ SCH ×4 (06:11→21:35)
[2021-08-14 07:26] LABS: HEMATOCRIT 37.3 % (32.4-45.2); HEMOGLOBIN 11.1 GM/dL (10.7-15.3); MCH 26.4 pg (25.7-33.7); MCHC 29.8 g/dl (32.0-36.0); MEAN CELL VOLUME 88.6 fl (80-96); MEAN PLT VOLUME 8.9 fl (7.5-11.1); PLATELET COUNT 344 10^3/uL (134-434); RBC 4.21 M/mm3 (3.60-5.2); RDW 20.7 % (11.6-15.6)
[2021-08-14 07:27] LABS: WHITE BLOOD COUNT 44.4 K/mm3 (4.0-10.0)
[2021-08-14 07:45] LABS: ALBUMIN 2.5 g/dl (3.4-5.0); CALCIUM 9.2 mg/dL (8.5-10.1)
[2021-08-14 07:46] LABS: MAGNESIUM 2.3 mg/dL (1.8-2.4)
[2021-08-14 07:49] LABS: BLOOD UREA NITROGEN 74.9 mg/dL (7-18); CREATININE 2.5 mg/dL (0.55-1.3); PHOSPHOROUS 4.9 mg/dL (2.5-4.9)
[2021-08-14 07:50] LABS: TOT PROT 4.9 g/dl (6.4-8.2)
[2021-08-14 07:51] LABS: BILIRUBIN,TOTAL 1.4 mg/dL (0.2-1)
[2021-08-14 07:54] LABS: LACTIC ACID 3.9 mmol/L (0.4-2.0)
[2021-08-14] MEDS ORDERED: SODIUM CHLORIDE 1,000 ML IV STA (08:01)
[2021-08-14 08:57] LABS: PLATELET ESTIMATE NORMAL
[2021-08-14 09:01] LABS: ANISOCYTOSIS 0; MACROCYTOSIS 0
[2021-08-14] MEDS ORDERED: MIDAZOLAM 100 MG/100 ML MG IVPB ONE ×2 (09:31→20:27)
[2021-08-14] MEDS: PANTOPRAZOLE SODIUM 40 MG VIAL IVPUSH SCH (09:46)
[2021-08-14] MEDS: MUPIROCIN 2% TOPICAL OINTMENT FOR DECOLONIZATION NS SCH ×2 (10:00→21:28)
[2021-08-14] MEDS ORDERED: SODIUM CHLORIDE 1,000 ML IV SCH ×2 (10:15→10:45)
[2021-08-14] MEDS: SODIUM CHLORIDE 1,000 ML IV SCH (12:32)
[2021-08-14] MEDS: FLUDROCORTISONE ACETATE 0.1 MG TABLET (FP) GT SCH (19:20)
[2021-08-14] MEDS: HYDROCORTISONE SOD SUCCINATE 100 MG/2 ML VIAL IVPUSH SCH (19:20)
[2021-08-14] MEDS: MIDAZOLAM 100 MG in SODIUM CHLORIDE 100 ML IVPB SCH ×2 (20:36→23:37)
[2021-08-14] MEDS: VASOPRESSIN 40 UNITS/100 ML BAG IV SCH (21:08)
[2021-08-14] MEDS: CHLORHEXIDINE GLUCONATE 4% CLEANSER FOR DECOLONIZATION TP SCH (21:28)
[2021-08-14] MEDS ORDERED: MEROPENEM 1 GM in DEXTROSE 5%-WATER 100 ML IVPB SCH (22:00)
[2021-08-14] MEDS: FENTANYL NS IVPB 500 MCG/100 ML BAG IVPB SCH (23:37)
[2021-08-15] MEDS: HYDROCORTISONE SOD SUCCINATE 100 MG/2 ML VIAL IVPUSH SCH ×4 (00:06→19:40)
[2021-08-15] MEDS: PROPOFOL 1,000,000 MCG/100 ML VIAL IVPB SCH ×2 (01:54→08:10)
[2021-08-15] MEDS: VASOPRESSIN 40 UNITS/100 ML BAG IV SCH (01:54)
[2021-08-15] MEDS: NOREPINEPHRINE BITARTRATE 16,000 MCG in SODIUM CHLORIDE 484 ML IV SCH ×2 (01:54→09:14)
[2021-08-15] MEDS: FENTANYL NS IVPB 500 MCG/100 ML BAG IVPB SCH ×4 (02:16→23:04)
[2021-08-15] MEDS: HEPARIN NA (PORCINE) 5,000 UNITS/ML 1ML VIAL SQ SCH ×3 (06:16→21:53)
[2021-08-15] MEDS: INSULIN SLIDING SCALE (NOVOLOG) 1 VIAL SQ SCH ×4 (06:17→22:01)
[2021-08-15 07:14] LABS: HEMATOCRIT 37.9 % (32.4-45.2); HEMOGLOBIN 11.6 GM/dL (10.7-15.3); MCH 26.8 pg (25.7-33.7); MCHC 30.5 g/dl (32.0-36.0); MEAN CELL VOLUME 87.7 fl (80-96); MEAN PLT VOLUME 9.1 fl (7.5-11.1); PLATELET COUNT 283 10^3/uL (134-434); RBC 4.33 M/mm3 (3.60-5.2); RDW 20.8 % (11.6-15.6); WHITE BLOOD COUNT 27.9 K/mm3 (4.0-10.0)
[2021-08-15 07:23] LABS: ALBUMIN 2.4 g/dl (3.4-5.0); BLOOD UREA NITROGEN 82.2 mg/dL (7-18); CALCIUM 8.1 mg/dL (8.5-10.1); MAGNESIUM 2.4 mg/dL (1.8-2.4)
[2021-08-15 07:26] LABS: PHOSPHOROUS 6.5 mg/dL (2.5-4.9)
[2021-08-15 07:28] LABS: BILIRUBIN,TOTAL 1.5 mg/dL (0.2-1); TOT PROT 4.8 g/dl (6.4-8.2)
[2021-08-15] MEDS ORDERED: MEROPENEM 1 GM VIAL (RESTRICTED TO ID) IVPB ONE (09:06)
[2021-08-15] MEDS ORDERED: MIDAZOLAM 100 MG/100 ML MG IVPB ONE (09:06)
[2021-08-15] MEDS ORDERED: DEXTROSE 5%-WATER 100 ML IVPB ONE (09:06)
[2021-08-15] MEDS: MUPIROCIN 2% TOPICAL OINTMENT FOR DECOLONIZATION NS SCH ×2 (09:12→21:54)
[2021-08-15] MEDS: FLUDROCORTISONE ACETATE 0.1 MG TABLET (FP) GT SCH (09:12)
[2021-08-15] MEDS: MEROPENEM 1 GM in DEXTROSE 5%-WATER 100 ML IVPB SCH (09:13)
[2021-08-15] MEDS: PANTOPRAZOLE SODIUM 40 MG VIAL IVPUSH SCH (09:13)
[2021-08-15 09:29] LABS: ANISOCYTOSIS 1+; MACROCYTOSIS 1+; OVALOCYTE 1+; PLATELET ESTIMATE NORMAL
[2021-08-15] MEDS ORDERED: SODIUM ZIRCONIUM CYCLOSILICATE (LOKELMA) 5 GM PACKET PO ONE (10:15)
[2021-08-15] MEDS: SODIUM CHLORIDE 1,000 ML IV SCH (10:45)
[2021-08-15] MEDS: MIDAZOLAM 100 MG in SODIUM CHLORIDE 100 ML IVPB SCH ×2 (11:20→23:04)
[2021-08-15] MEDS: VANCOMYCIN 1 GRAM (PRE-DOCKED) 1,000 MG/250 ML BAG IVPB SCH (14:00)
[2021-08-15] MEDS ORDERED: VANCOMYCIN 1 GM in D5W (PRE-DOCKED) 1,000 MG/250 ML IVPB ONE (14:37)
[2021-08-15] MEDS: CHLORHEXIDINE GLUCONATE 4% CLEANSER FOR DECOLONIZATION TP SCH (21:54)
[2021-08-16] MEDS: HYDROCORTISONE SOD SUCCINATE 100 MG/2 ML VIAL IVPUSH SCH ×4 (00:33→17:53)
[2021-08-16] MEDS: VANCOMYCIN 1 GRAM (PRE-DOCKED) 1,000 MG/250 ML BAG IVPB SCH ×3 (00:33→23:10)
[2021-08-16] MEDS: NOREPINEPHRINE BITARTRATE 16,000 MCG in SODIUM CHLORIDE 484 ML IV SCH (00:33)
[2021-08-16] MEDS: VASOPRESSIN 40 UNITS/100 ML BAG IV SCH (01:30)
[2021-08-16] MEDS: PROPOFOL 1,000,000 MCG/100 ML VIAL IVPB SCH (01:30)
[2021-08-16] MEDS ORDERED: MIDAZOLAM 100 MG/100 ML MG IVPB ONE (04:36)
[2021-08-16] MEDS: HEPARIN NA (PORCINE) 5,000 UNITS/ML 1ML VIAL SQ SCH ×3 (05:48→21:09)
[2021-08-16] MEDS: MIDAZOLAM 100 MG in SODIUM CHLORIDE 100 ML IVPB SCH ×2 (05:57→23:07)
[2021-08-16] MEDS: FENTANYL NS IVPB 500 MCG/100 ML BAG IVPB SCH ×3 (06:39→23:07)
[2021-08-16] MEDS: INSULIN SLIDING SCALE (NOVOLOG) 1 VIAL SQ SCH ×4 (06:45→21:09)
[2021-08-16 07:36] LABS: HEMATOCRIT 38.1 % (32.4-45.2); HEMOGLOBIN 11.4 GM/dL (10.7-15.3); MCH 26.4 pg (25.7-33.7); MCHC 29.8 g/dl (32.0-36.0); MEAN CELL VOLUME 88.5 fl (80-96); MEAN PLT VOLUME 9.3 fl (7.5-11.1); PLATELET COUNT 263 10^3/uL (134-434); RDW 20.9 % (11.6-15.6); WHITE BLOOD COUNT 26.5 K/mm3 (4.0-10.0)
[2021-08-16 08:07] LABS: CHLORIDE 100 mmol/L (98-107); SODIUM 135 mmol/L (136-145)
[2021-08-16 08:30] LABS: BILIRUBIN,TOTAL 1.2 mg/dL (0.2-1); TOT PROT 4.8 g/dl (6.4-8.2)
[2021-08-16 08:32] LABS: ALK PHOS 94 U/L (45-117)
[2021-08-16 08:35] LABS: CALCIUM 7.3 mg/dL (8.5-10.1); CO2 25 mmol/L (21-32); CREATININE 3.6 mg/dL (0.55-1.3); GLUCOSE,RANDOM 221 mg/dL (74-106); SGOT/AST 785 U/L (15-37)
[2021-08-16 08:36] LABS: ALBUMIN 2.5 g/dl (3.4-5.0); BLOOD UREA NITROGEN 96.3 mg/dL (7-18); MAGNESIUM 2.4 mg/dL (1.8-2.4)
[2021-08-16 08:57] LABS: ANISOCYTOSIS 2+; MACROCYTOSIS 0; OVALOCYTE 3+; PLATELET ESTIMATE NORMAL
[2021-08-16 09:04] LABS: ANION GAP 10 MMOL/L (8-16)
[2021-08-16 09:07] LABS: SGPT/ALT 2449 U/L (13-61)
[2021-08-16] MEDS ORDERED: DEXTROSE 50%-WATER 25 GM/50 ML DISP.SYRIN IVPUSH ONE (09:30)
[2021-08-16] MEDS ORDERED: SODIUM ZIRCONIUM CYCLOSILICATE (LOKELMA) 5 GM PACKET PO ONE (09:30)
[2021-08-16] MEDS ORDERED: INSULIN REGULAR HUMAN 100 UNITS/ML *VIAL IVPUSH ONE (09:30)
[2021-08-16] MEDS ORDERED: DEXTROSE 50%-WATER 25 GM/50 ML DISP.SYRIN ONE (09:33)
[2021-08-16] MEDS ORDERED: CALCIUM GLUCONATE 10% - 1,000 MG/10 ML VIAL ONE (09:33)
[2021-08-16] MEDS ORDERED: SODIUM BICARBONATE 8.4% 50 MEQ/50 ML VIAL IVPUSH ONE (09:34)
[2021-08-16] MEDS: FLUDROCORTISONE ACETATE 0.1 MG TABLET (FP) GT SCH (09:41)
[2021-08-16] MEDS: PANTOPRAZOLE SODIUM 40 MG VIAL IVPUSH SCH (09:44)
[2021-08-16] MEDS ORDERED: CALCIUM GLUCONATE 10% - 1,000 MG/10 ML VIAL IVPB ONE (09:45)
[2021-08-16] MEDS ORDERED: SODIUM BICARBONATE 8.4% - 50 ML ONE (09:46)
[2021-08-16] MEDS: MUPIROCIN 2% TOPICAL OINTMENT FOR DECOLONIZATION NS SCH ×2 (10:03→21:10)
[2021-08-16] MEDS ORDERED: FUROSEMIDE 40 MG/4 ML INJECTABLE VIAL IVPUSH ONE (12:00)
[2021-08-16] MEDS: SODIUM ZIRCONIUM CYCLOSILICATE (LOKELMA) 5 GM PACKET PO SCH ×2 (15:00→21:09)
[2021-08-16] MEDS: SODIUM CHLORIDE 1,000 ML IV SCH (20:15)
[2021-08-16] MEDS: CHLORHEXIDINE GLUCONATE 4% CLEANSER FOR DECOLONIZATION TP SCH (21:10)
[2021-08-17] MEDS: PROPOFOL 1,000,000 MCG/100 ML VIAL IVPB SCH ×3 (00:02→11:00)
[2021-08-17] MEDS: HYDROCORTISONE SOD SUCCINATE 100 MG/2 ML VIAL IVPUSH SCH ×4 (00:02→18:32)
[2021-08-17] MEDS: NOREPINEPHRINE BITARTRATE 16,000 MCG in SODIUM CHLORIDE 484 ML IV SCH ×2 (00:34→18:40)
[2021-08-17] MEDS: VASOPRESSIN 40 UNITS/100 ML BAG IV SCH (01:25)
[2021-08-17] MEDS ORDERED: FUROSEMIDE 40 MG/4 ML INJECTABLE VIAL IVPUSH ONE (03:25)
[2021-08-17] MEDS: INSULIN SLIDING SCALE (NOVOLOG) 1 VIAL SQ SCH ×4 (06:15→21:38)
[2021-08-17] MEDS: HEPARIN NA (PORCINE) 5,000 UNITS/ML 1ML VIAL SQ SCH ×3 (06:15→21:31)
[2021-08-17] MEDS ORDERED: MIDAZOLAM 100 MG/100 ML MG IVPB ONE (06:42)
[2021-08-17 08:23] LABS: HEMATOCRIT 37.9 % (32.4-45.2); HEMOGLOBIN 11.5 GM/dL (10.7-15.3); MCHC 30.3 g/dl (32.0-36.0); PLATELET COUNT 219 10^3/uL (134-434); RBC 4.26 M/mm3 (3.60-5.2); RDW 21.1 % (11.6-15.6); WHITE BLOOD COUNT 24.4 K/mm3 (4.0-10.0)
[2021-08-17 08:42] LABS: CHLORIDE 98 mmol/L (98-107); SODIUM 132 mmol/L (136-145)
[2021-08-17 08:45] LABS: ALBUMIN 2.5 g/dl (3.4-5.0); BLOOD UREA NITROGEN 103.5 mg/dL (7-18); CALCIUM 7.3 mg/dL (8.5-10.1); CO2 26 mmol/L (21-32); GLUCOSE,RANDOM 297 mg/dL (74-106); MAGNESIUM 2.5 mg/dL (1.8-2.4)
[2021-08-17 08:48] LABS: CREATININE 4.2 mg/dL (0.55-1.3)
[2021-08-17 08:49] LABS: PHOSPHOROUS 8.2 mg/dL (2.5-4.9); SGOT/AST 192 U/L (15-37); TOT PROT 5.2 g/dl (6.4-8.2)
[2021-08-17 08:50] LABS: BILIRUBIN,TOTAL 0.9 mg/dL (0.2-1)
[2021-08-17 08:51] LABS: ALK PHOS 102 U/L (45-117)
[2021-08-17 09:06] LABS: ANION GAP 9 MMOL/L (8-16); SGPT/ALT 1594 U/L (13-61)
[2021-08-17] MEDS ORDERED: DEXTROSE 50%-WATER - 25 GM/50 ML VIAL IVPUSH ONE (09:09)
[2021-08-17] MEDS ORDERED: INSULIN REGULAR HUMAN 100 UNITS/ML *VIAL IVPUSH ONE (09:09)
[2021-08-17] MEDS ORDERED: CALCIUM GLUCONATE 10% - 1,000 MG/10 ML VIAL IVPB ONE (09:10)
[2021-08-17] MEDS ORDERED: DEXTROSE 50%-WATER 25 GM/50 ML DISP.SYRIN ONE (09:24)
[2021-08-17] MEDS: PANTOPRAZOLE SODIUM 40 MG VIAL IVPUSH SCH (09:32)
[2021-08-17] MEDS: SODIUM ZIRCONIUM CYCLOSILICATE (LOKELMA) 5 GM PACKET PO SCH ×2 (09:43→21:31)
[2021-08-17] MEDS: FLUDROCORTISONE ACETATE 0.1 MG TABLET (FP) GT SCH (09:44)
[2021-08-17] MEDS ORDERED: SODIUM BICARBONATE 8.4% 50 MEQ/50 ML VIAL IVPUSH ONE (09:49)
[2021-08-17] MEDS: MUPIROCIN 2% TOPICAL OINTMENT FOR DECOLONIZATION NS SCH ×2 (09:51→21:31)
[2021-08-17] MEDS ORDERED: SODIUM BICARBONATE 8.4% - 50 ML ONE (09:54)
[2021-08-17] MEDS ORDERED: SODIUM CHLORIDE 250 ML IV PRN (11:30)
[2021-08-17 11:58] LABS: ANISOCYTOSIS 2+; MACROCYTOSIS 0; OVALOCYTE 2+; PLATELET ESTIMATE NORMAL; TARGET CELLS 1+
[2021-08-17] MEDS: FENTANYL NS IVPB 500 MCG/100 ML BAG IVPB SCH ×2 (16:49→22:33)
[2021-08-17] MEDS: CHLORHEXIDINE GLUCONATE 4% CLEANSER FOR DECOLONIZATION TP SCH (21:31)
[2021-08-17] MEDS: MIDAZOLAM 100 MG in SODIUM CHLORIDE 100 ML IVPB SCH (22:33)
[2021-08-18] MEDS: NOREPINEPHRINE BITARTRATE 16,000 MCG in SODIUM CHLORIDE 484 ML IV SCH (00:18)
[2021-08-18] MEDS: VASOPRESSIN 40 UNITS/100 ML BAG IV SCH (01:00)
[2021-08-18] MEDS: HYDROCORTISONE SOD SUCCINATE 100 MG/2 ML VIAL IVPUSH SCH ×4 (01:00→18:04)
[2021-08-18] MEDS: FENTANYL NS IVPB 500 MCG/100 ML BAG IVPB SCH (02:45)
[2021-08-18] MEDS: PROPOFOL 1,000,000 MCG/100 ML VIAL IVPB SCH ×2 (04:17→23:38)
[2021-08-18] MEDS: HEPARIN NA (PORCINE) 5,000 UNITS/ML 1ML VIAL SQ SCH ×3 (06:11→21:58)
[2021-08-18] MEDS: INSULIN SLIDING SCALE (NOVOLOG) 1 VIAL SQ SCH ×4 (06:13→21:58)
[2021-08-18 07:03] LABS: HEMATOCRIT 36.6 % (32.4-45.2); HEMOGLOBIN 11.3 GM/dL (10.7-15.3); MCHC 30.8 g/dl (32.0-36.0); MEAN CELL VOLUME 87.6 fl (80-96); MEAN PLT VOLUME 9.6 fl (7.5-11.1); PLATELET COUNT 162 10^3/uL (134-434); RBC 4.18 M/mm3 (3.60-5.2); RDW 20.5 % (11.6-15.6)
[2021-08-18 07:20] LABS: CALCIUM 7.4 mg/dL (8.5-10.1)
[2021-08-18 07:21] LABS: ALBUMIN 2.4 g/dl (3.4-5.0); BLOOD UREA NITROGEN 87.5 mg/dL (7-18); MAGNESIUM 2.2 mg/dL (1.8-2.4)
[2021-08-18 07:24] LABS: CREATININE 3.8 mg/dL (0.55-1.3); PHOSPHOROUS 7.1 mg/dL (2.5-4.9)
[2021-08-18 07:26] LABS: BILIRUBIN,TOTAL 0.8 mg/dL (0.2-1)
[2021-08-18 08:34] LABS: ANISOCYTOSIS 2+; MACROCYTOSIS 0; OVALOCYTE 2+; PLATELET ESTIMATE NORMAL
[2021-08-18] MEDS ORDERED: SODIUM CHLORIDE 250 ML IV PRN (08:39)
[2021-08-18] MEDS: FLUDROCORTISONE ACETATE 0.1 MG TABLET (FP) GT SCH (09:43)
[2021-08-18] MEDS: MUPIROCIN 2% TOPICAL OINTMENT FOR DECOLONIZATION NS SCH ×2 (09:44→21:59)
[2021-08-18] MEDS: PANTOPRAZOLE SODIUM 40 MG VIAL IVPUSH SCH (09:50)
[2021-08-18 15:15] VITALS: BMI 44.4
[2021-08-18] MEDS: CHLORHEXIDINE GLUCONATE 4% CLEANSER FOR DECOLONIZATION TP SCH (21:58)
[2021-08-18] MEDS: MIDAZOLAM 100 MG in SODIUM CHLORIDE 100 ML IVPB SCH (23:37)
[2021-08-19] MEDS: VASOPRESSIN 40 UNITS/100 ML BAG IV SCH (01:22)
[2021-08-19] MEDS: HYDROCORTISONE SOD SUCCINATE 100 MG/2 ML VIAL IVPUSH SCH ×5 (01:22→23:58)
[2021-08-19] MEDS: FENTANYL NS IVPB 500 MCG/100 ML BAG IVPB SCH ×2 (01:22→14:03)
[2021-08-19] MEDS: NOREPINEPHRINE BITARTRATE 16,000 MCG in SODIUM CHLORIDE 484 ML IV SCH ×2 (01:22→01:51)
[2021-08-19] MEDS: PROPOFOL 1,000,000 MCG/100 ML VIAL IVPB SCH (01:51)
[2021-08-19] MEDS: HEPARIN NA (PORCINE) 5,000 UNITS/ML 1ML VIAL SQ SCH ×3 (06:10→21:51)
[2021-08-19] MEDS: INSULIN SLIDING SCALE (NOVOLOG) 1 VIAL SQ SCH ×3 (06:10→17:30)
[2021-08-19 07:19] LABS: HEMATOCRIT 36.2 % (32.4-45.2); MCH 26.7 pg (25.7-33.7); MCHC 30.3 g/dl (32.0-36.0); MEAN CELL VOLUME 88.1 fl (80-96); MEAN PLT VOLUME 10.1 fl (7.5-11.1); PLATELET COUNT 132 10^3/uL (134-434); RBC 4.11 M/mm3 (3.60-5.2); RDW 20.6 % (11.6-15.6); WHITE BLOOD COUNT 19.1 K/mm3 (4.0-10.0)
[2021-08-19 07:41] LABS: CALCIUM 7.2 mg/dL (8.5-10.1)
[2021-08-19 07:42] LABS: ALBUMIN 2.4 g/dl (3.4-5.0); BLOOD UREA NITROGEN 77.1 mg/dL (7-18); MAGNESIUM 2.5 mg/dL (1.8-2.4)
[2021-08-19 07:44] LABS: CREATININE 3.5 mg/dL (0.55-1.3); PHOSPHOROUS 7.5 mg/dL (2.5-4.9)
[2021-08-19 07:46] LABS: BILIRUBIN,TOTAL 0.7 mg/dL (0.2-1)
[2021-08-19] MEDS: FLUDROCORTISONE ACETATE 0.1 MG TABLET (FP) GT SCH (09:03)
[2021-08-19] MEDS: PANTOPRAZOLE SODIUM 40 MG VIAL IVPUSH SCH (09:03)
[2021-08-19 10:51] LABS: ANISOCYTOSIS 2+; MACROCYTOSIS 0; OVALOCYTE 2+; PLATELET ESTIMATE DECREASED
[2021-08-19] MEDS ORDERED: SODIUM CHLORIDE 250 ML IV PRN (10:55)
[2021-08-19] MEDS: ALBUMIN HUMAN 25% 12.5 GM/50 ML VIAL IV SCH ×4 (13:00→16:21)
[2021-08-19] MEDS: CHLORHEXIDINE GLUCONATE 4% CLEANSER FOR DECOLONIZATION TP SCH (21:51)
[2021-08-20] MEDS: MIDAZOLAM 100 MG in SODIUM CHLORIDE 100 ML IVPB SCH
[2021-08-20] MEDS: INSULIN SLIDING SCALE (NOVOLOG) 1 VIAL SQ SCH ×5 (00:01→23:17)
[2021-08-20] MEDS: HYDROCORTISONE SOD SUCCINATE 100 MG/2 ML VIAL IVPUSH SCH ×3 (05:46→18:54)
[2021-08-20] MEDS: HEPARIN NA (PORCINE) 5,000 UNITS/ML 1ML VIAL SQ SCH ×3 (05:46→22:48)
[2021-08-20] MEDS: NOREPINEPHRINE BITARTRATE 16,000 MCG in SODIUM CHLORIDE 484 ML IV SCH (05:47)
[2021-08-20] MEDS: VASOPRESSIN 40 UNITS/100 ML BAG IV SCH (05:47)
[2021-08-20] MEDS: PROPOFOL 1,000,000 MCG/100 ML VIAL IVPB SCH (05:47)
[2021-08-20 06:58] LABS: ARTERIAL BLOOD GAS BASE EXCESS 0.5 mmol/L (-2-2); ARTERIAL BLOOD GAS PO2 180.8 mmHg (80-100); ARTERIAL BLOOD GAS pH 7.271 (7.350-7.450)
[2021-08-20 07:00] LABS: ALLENS TEST POSITIVE
[2021-08-20 07:01] LABS: VENT MODE A/C; VENT RATE 126
[2021-08-20 07:31] LABS: ALBUMIN 2.7 g/dl (3.4-5.0); CALCIUM 7.4 mg/dL (8.5-10.1)
[2021-08-20 07:32] LABS: BLOOD UREA NITROGEN 61.7 mg/dL (7-18); MAGNESIUM 2.5 mg/dL (1.8-2.4)
[2021-08-20 07:34] LABS: BILIRUBIN,DIRECT 0.3 mg/dL (0.0-0.2); CREATININE 2.8 mg/dL (0.55-1.3); PHOSPHOROUS 5.9 mg/dL (2.5-4.9)
[2021-08-20 07:36] LABS: BILIRUBIN,TOTAL 0.5 mg/dL (0.2-1); TOT PROT 5.1 g/dl (6.4-8.2)
[2021-08-20] MEDS ORDERED: FUROSEMIDE 40 MG/4 ML INJECTABLE VIAL IVPUSH ONE (08:33)
[2021-08-20] MEDS: PANTOPRAZOLE SODIUM 40 MG VIAL IVPUSH SCH (09:14)
[2021-08-20] MEDS: FLUDROCORTISONE ACETATE 0.1 MG TABLET (FP) GT SCH (09:14)
[2021-08-20] MEDS: FENTANYL NS IVPB 500 MCG/100 ML BAG IVPB SCH ×3 (11:50→23:10)
[2021-08-20] MEDS: CHLORHEXIDINE GLUCONATE 4% CLEANSER FOR DECOLONIZATION TP SCH (22:48)
[2021-08-21] MEDS: NOREPINEPHRINE BITARTRATE 16,000 MCG in SODIUM CHLORIDE 484 ML IV SCH (01:06)
[2021-08-21] MEDS: HYDROCORTISONE SOD SUCCINATE 100 MG/2 ML VIAL IVPUSH SCH ×4 (01:06→17:44)
[2021-08-21] MEDS: HEPARIN NA (PORCINE) 5,000 UNITS/ML 1ML VIAL SQ SCH ×3 (06:25→22:24)
[2021-08-21] MEDS: INSULIN SLIDING SCALE (NOVOLOG) 1 VIAL SQ SCH ×4 (06:29→22:25)
[2021-08-21] MEDS: VASOPRESSIN 40 UNITS/100 ML BAG IV SCH (06:31)
[2021-08-21 06:48] LABS: ARTERIAL BLD GAS O2 SATURATION 89.3 % (95-98); ARTERIAL BLOOD GAS BASE EXCESS 2.9 mmol/L (-2-2); ARTERIAL BLOOD GAS PO2 58.7 mmHg (80-100); ARTERIAL BLOOD GAS pH 7.369 (7.350-7.450)
[2021-08-21 06:56] LABS: ALLENS TEST POSITIVE
[2021-08-21 06:57] LABS: VENT MODE A/C; VENT RATE 24
[2021-08-21 07:35] LABS: HEMOGLOBIN 9.3 GM/dL (10.7-15.3); MCH 26.9 pg (25.7-33.7); MCHC 31.1 g/dl (32.0-36.0); MEAN CELL VOLUME 86.6 fl (80-96); MEAN PLT VOLUME 10.3 fl (7.5-11.1); PLATELET COUNT 89 10^3/uL (134-434); RBC 3.46 M/mm3 (3.60-5.2); RDW 19.7 % (11.6-15.6); WHITE BLOOD COUNT 14.9 K/mm3 (4.0-10.0)
[2021-08-21 08:04] LABS: ALBUMIN 2.3 g/dl (3.4-5.0); BLOOD UREA NITROGEN 80.7 mg/dL (7-18); CALCIUM 7.7 mg/dL (8.5-10.1); MAGNESIUM 2.4 mg/dL (1.8-2.4)
[2021-08-21 08:08] LABS: CREATININE 3.3 mg/dL (0.55-1.3)
[2021-08-21 08:09] LABS: BILIRUBIN,TOTAL 0.5 mg/dL (0.2-1); PHOSPHOROUS 4.4 mg/dL (2.5-4.9); TOT PROT 4.5 g/dl (6.4-8.2)
[2021-08-21] MEDS: FLUDROCORTISONE ACETATE 0.1 MG TABLET (FP) GT SCH (10:04)
[2021-08-21] MEDS: PANTOPRAZOLE SODIUM 40 MG VIAL IVPUSH SCH (10:05)
[2021-08-21] MEDS: FENTANYL NS IVPB 500 MCG/100 ML BAG IVPB SCH ×3 (10:05→16:20)
[2021-08-21] MEDS ORDERED: FUROSEMIDE 100 MG/10 ML INJECTABLE VIAL IVPB ONE (16:08)
[2021-08-21] MEDS ORDERED: MIDAZOLAM HCL 2 MG/2 ML SINGLE DOSE VIAL IVPUSH ONE (17:27)
[2021-08-21] MEDS: DEXMEDETOMIDINE IN 0.9 % NACL 400 MCG/100 ML VIAL IVPB SCH (20:07)
[2021-08-21] MEDS: CHLORHEXIDINE GLUCONATE 4% CLEANSER FOR DECOLONIZATION TP SCH (22:24)
[2021-08-22] MEDS: HYDROCORTISONE SOD SUCCINATE 100 MG/2 ML VIAL IVPUSH SCH ×5 (00:04→23:46)
[2021-08-22] MEDS: NOREPINEPHRINE BITARTRATE 16,000 MCG in SODIUM CHLORIDE 484 ML IV SCH ×2 (00:15→12:45)
[2021-08-22] MEDS: VASOPRESSIN 40 UNITS/100 ML BAG IV SCH (01:00)
[2021-08-22] MEDS: HEPARIN NA (PORCINE) 5,000 UNITS/ML 1ML VIAL SQ SCH ×3 (06:55→21:35)
[2021-08-22] MEDS ORDERED: SODIUM CHLORIDE 250 ML IV PRN (07:00)
[2021-08-22] MEDS: INSULIN SLIDING SCALE (NOVOLOG) 1 VIAL SQ SCH ×4 (07:09→22:13)
[2021-08-22 08:08] LABS: HEMATOCRIT 31.2 % (32.4-45.2); HEMOGLOBIN 9.7 GM/dL (10.7-15.3); MCH 27.1 pg (25.7-33.7); MCHC 31.1 g/dl (32.0-36.0); MEAN CELL VOLUME 86.9 fl (80-96); MEAN PLT VOLUME 10.2 fl (7.5-11.1); PLATELET COUNT 107 10^3/uL (134-434); RBC 3.59 M/mm3 (3.60-5.2); RDW 19.5 % (11.6-15.6); WHITE BLOOD COUNT 13.4 K/mm3 (4.0-10.0)
[2021-08-22 08:19] LABS: ALBUMIN 2.2 g/dl (3.4-5.0); BLOOD UREA NITROGEN 100.4 mg/dL (7-18)
[2021-08-22 08:21] LABS: CREATININE 3.8 mg/dL (0.55-1.3)
[2021-08-22 08:22] LABS: BILIRUBIN,TOTAL 0.5 mg/dL (0.2-1)
[2021-08-22 08:26] LABS: TOT PROT 4.6 g/dl (6.4-8.2)
[2021-08-22] MEDS: PANTOPRAZOLE SODIUM 40 MG VIAL IVPUSH SCH (10:41)
[2021-08-22] MEDS: FLUDROCORTISONE ACETATE 0.1 MG TABLET (FP) GT SCH (10:41)
[2021-08-22] MEDS: ALBUMIN HUMAN 25% 12.5 GM/50 ML VIAL IV SCH ×4 (12:25→15:10)
[2021-08-22] MEDS: FENTANYL NS IVPB 500 MCG/100 ML BAG IVPB SCH (15:18)
[2021-08-22] MEDS: DEXMEDETOMIDINE IN 0.9 % NACL 400 MCG/100 ML VIAL IVPB SCH ×2 (15:20→23:25)
[2021-08-22] MEDS: CHLORHEXIDINE GLUCONATE 4% CLEANSER FOR DECOLONIZATION TP SCH (21:34)
[2021-08-23] MEDS: NOREPINEPHRINE BITARTRATE 16,000 MCG in SODIUM CHLORIDE 484 ML IV SCH (00:15)
[2021-08-23] MEDS: VASOPRESSIN 40 UNITS/100 ML BAG IV SCH (01:00)
[2021-08-23] MEDS ORDERED: fentaNYL CITRATE 250 MCG/5 ML VIAL ONE (02:48)
[2021-08-23] MEDS: INSULIN SLIDING SCALE (NOVOLOG) 1 VIAL SQ SCH ×4 (06:48→21:15)
[2021-08-23] MEDS: HEPARIN NA (PORCINE) 5,000 UNITS/ML 1ML VIAL SQ SCH ×3 (06:48→21:15)
[2021-08-23] MEDS: HYDROCORTISONE SOD SUCCINATE 100 MG/2 ML VIAL IVPUSH SCH ×2 (06:48→21:15)
[2021-08-23 07:24] LABS: HEMATOCRIT 34.3 % (32.4-45.2); HEMOGLOBIN 10.6 GM/dL (10.7-15.3); MCH 27.1 pg (25.7-33.7); MCHC 30.9 g/dl (32.0-36.0); MEAN CELL VOLUME 87.8 fl (80-96); MEAN PLT VOLUME 10.2 fl (7.5-11.1); PLATELET COUNT 127 10^3/uL (134-434); RBC 3.91 M/mm3 (3.60-5.2); RDW 19.9 % (11.6-15.6); WHITE BLOOD COUNT 13.7 K/mm3 (4.0-10.0)
[2021-08-23 07:57] LABS: ALBUMIN 2.4 g/dl (3.4-5.0); CALCIUM 7.8 mg/dL (8.5-10.1)
[2021-08-23 07:58] LABS: MAGNESIUM 2.4 mg/dL (1.8-2.4)
[2021-08-23 07:59] LABS: BILIRUBIN,TOTAL 0.6 mg/dL (0.2-1); TOT PROT 4.9 g/dl (6.4-8.2)
[2021-08-23 08:01] LABS: PHOSPHOROUS 4.1 mg/dL (2.5-4.9)
[2021-08-23] MEDS: PANTOPRAZOLE SODIUM 40 MG VIAL IVPUSH SCH (09:11)
[2021-08-23] MEDS: FLUDROCORTISONE ACETATE 0.1 MG TABLET (FP) GT SCH (09:11)
[2021-08-23] MEDS: VANCOMYCIN 1 GRAM (PRE-DOCKED) 1,000 MG/250 ML BAG IVPB SCH (11:01)
[2021-08-23] MEDS ORDERED: SODIUM CHLORIDE 250 ML IV PRN (12:47)
[2021-08-23] MEDS ORDERED: FUROSEMIDE 100 MG/10 ML INJECTABLE VIAL IVPB ONE (13:30)
[2021-08-23] MEDS ORDERED: MIDAZOLAM HCL 2 MG/2 ML SINGLE DOSE VIAL IVPUSH ONE (13:41)
[2021-08-23] MEDS ORDERED: MIDAZOLAM HCL 2 MG/2 ML SINGLE DOSE VIAL ONE (13:48)
[2021-08-23] MEDS: FENTANYL NS IVPB 500 MCG/100 ML BAG IVPB SCH ×3 (14:01→20:34)
[2021-08-23] MEDS: DEXMEDETOMIDINE IN 0.9 % NACL 400 MCG/100 ML VIAL IVPB SCH (14:46)
[2021-08-23] MEDS: CHLORHEXIDINE GLUCONATE 4% CLEANSER FOR DECOLONIZATION TP SCH (21:15)
[2021-08-24] MEDS: FENTANYL NS IVPB 500 MCG/100 ML BAG IVPB SCH ×5 (01:56→18:23)
[2021-08-24] MEDS: NOREPINEPHRINE BITARTRATE 16,000 MCG in SODIUM CHLORIDE 484 ML IV SCH (02:50)
[2021-08-24] MEDS: VASOPRESSIN 40 UNITS/100 ML BAG IV SCH (02:50)
[2021-08-24] MEDS: INSULIN SLIDING SCALE (NOVOLOG) 1 VIAL SQ SCH ×4 (06:22→22:47)
[2021-08-24] MEDS: HEPARIN NA (PORCINE) 5,000 UNITS/ML 1ML VIAL SQ SCH (06:22)
[2021-08-24 06:56] LABS: HEMATOCRIT 35.7 % (32.4-45.2); HEMOGLOBIN 11.1 GM/dL (10.7-15.3); MCH 27.7 pg (25.7-33.7); MEAN CELL VOLUME 89.4 fl (80-96); MEAN PLT VOLUME 10.5 fl (7.5-11.1); PLATELET COUNT 166 10^3/uL (134-434); RBC 3.99 M/mm3 (3.60-5.2); RDW 20.1 % (11.6-15.6); WHITE BLOOD COUNT 20.6 K/mm3 (4.0-10.0)
[2021-08-24 07:29] LABS: ALBUMIN 2.4 g/dl (3.4-5.0); BLOOD UREA NITROGEN 82.5 mg/dL (7-18); CALCIUM 8.1 mg/dL (8.5-10.1); MAGNESIUM 2.3 mg/dL (1.8-2.4)
[2021-08-24 07:32] LABS: PHOSPHOROUS 5.8 mg/dL (2.5-4.9)
[2021-08-24 07:33] LABS: CREATININE 3.3 mg/dL (0.55-1.3)
[2021-08-24 07:34] LABS: BILIRUBIN,TOTAL 0.6 mg/dL (0.2-1)
[2021-08-24] MEDS ORDERED: dilTIAZem HCL 50 MG/10 ML - 10 ML VIAL IVPUSH ONE (10:03)
[2021-08-24] MEDS ORDERED: MIDAZOLAM HCL 2 MG/2 ML SINGLE DOSE VIAL IVPUSH ONE (10:04)
[2021-08-24] MEDS ORDERED: MIDAZOLAM HCL 5 MG/1 ML Single Dose Vial ONE (10:04)
[2021-08-24] MEDS: HYDROCORTISONE SOD SUCCINATE 100 MG/2 ML VIAL IVPUSH SCH ×2 (10:07→22:48)
[2021-08-24] MEDS: FLUDROCORTISONE ACETATE 0.1 MG TABLET (FP) GT SCH (10:07)
[2021-08-24] MEDS: PANTOPRAZOLE SODIUM 40 MG VIAL IVPUSH SCH (10:07)
[2021-08-24] MEDS ORDERED: HEPARIN NA (PORCINE) 5,000 UNITS/ML 1ML VIAL IVPUSH PRN (10:28)
[2021-08-24] MEDS: DEXMEDETOMIDINE IN 0.9 % NACL 400 MCG/100 ML VIAL IVPB SCH ×2 (11:00→22:48)
[2021-08-24] MEDS ORDERED: MIDAZOLAM HCL 5 MG/1 ML Single Dose Vial IVPUSH ONE (11:02)
[2021-08-24] MEDS ORDERED: NOREPINEPHRINE BITARTRATE 4 MG/4 ML ML IV ONE (11:05)
[2021-08-24] MEDS ORDERED: SODIUM CHLORIDE 0.9% 500 ML INFUS.BAG IV ONE (11:08)
[2021-08-24] MEDS ORDERED: NOREPINEPHRINE D5W PREMIX 16,000 MCG/500 ML BAG IVPB SCH (11:15)
[2021-08-24 11:42] LABS: INR 1.11 (0.83-1.09); PROTHROMBIN TIME (PATIENT) 12.8 SEC (9.7-13.0)
[2021-08-24 11:44] LABS: ACTIVATED PTT 33.2 SECONDS (25.2-36.5)
[2021-08-24] MEDS ORDERED: ALBUMIN HUMAN 25% 12.5 GM/50 ML VIAL IVPB SCH (13:00)
[2021-08-24] MEDS: HEPARIN - 25,000 UNIT in SODIUM CHLORIDE 495 ML IV SCH (13:42)
[2021-08-24] MEDS: CHLORHEXIDINE GLUCONATE 4% CLEANSER FOR DECOLONIZATION TP SCH (22:47)
[2021-08-25] MEDS ORDERED: MIDAZOLAM IN 0.9 % SOD.CHLORID 100 MG/100 ML PLAST..BAG IVPB SCH (03:45)
[2021-08-25] MEDS ORDERED: MIDAZOLAM IN 0.9 % SOD.CHLORID 1 MG/1 ML PLAST..BAG ONE (03:49)
[2021-08-25] MEDS: INSULIN SLIDING SCALE (NOVOLOG) 1 VIAL SQ SCH ×4 (06:19→23:13)
[2021-08-25 07:19] LABS: HEMATOCRIT 31.6 % (32.4-45.2); HEMOGLOBIN 9.8 GM/dL (10.7-15.3); MCH 27.5 pg (25.7-33.7); MCHC 30.9 g/dl (32.0-36.0); MEAN PLT VOLUME 9.7 fl (7.5-11.1); PLATELET COUNT 201 10^3/uL (134-434); RBC 3.55 M/mm3 (3.60-5.2); RDW 19.7 % (11.6-15.6)
[2021-08-25 07:21] LABS: WHITE BLOOD COUNT 30.2 K/mm3 (4.0-10.0)
[2021-08-25 08:15] LABS: ALBUMIN 2.1 g/dl (3.4-5.0); BILIRUBIN,TOTAL 0.9 mg/dL (0.2-1); BLOOD UREA NITROGEN 97.6 mg/dL (7-18); CALCIUM 7.5 mg/dL (8.5-10.1); CREATININE 3.7 mg/dL (0.55-1.3); MAGNESIUM 2.3 mg/dL (1.8-2.4); TOT PROT 4.8 g/dl (6.4-8.2)
[2021-08-25] MEDS ORDERED: ACETAMINOPHEN 1000 MG/100 ML BAG IVPB ONE (08:43)
[2021-08-25] MEDS: HEPARIN - 25,000 UNIT in SODIUM CHLORIDE 495 ML IV SCH (09:32)
[2021-08-25] MEDS: PANTOPRAZOLE SODIUM 40 MG VIAL IVPUSH SCH (09:32)
[2021-08-25] MEDS: FLUDROCORTISONE ACETATE 0.1 MG TABLET (FP) GT SCH (09:32)
[2021-08-25] MEDS: HYDROCORTISONE SOD SUCCINATE 100 MG/2 ML VIAL IVPUSH SCH ×2 (09:33→23:13)
[2021-08-25] MEDS ORDERED: FUROSEMIDE 100 MG/10 ML INJECTABLE VIAL IVPUSH ONE (10:47)
[2021-08-25 10:50] LABS: EPI CELLS 26 /uL (0-25.1); HYALINE CASTS 8 /uL (0-3.1); PH,URINE 5.5 (5.0-8.0); URINE APPEARANCE TURBID; URINE BACTERIA 133 /uL (0-1359); URINE BILIRUBIN 1+ (NEGATIVE); URINE COLOR ORANGE; URINE GLUCOSE (UA) TRACE (NEGATIVE); URINE KETONE NEGATIVE (NEGATIVE); URINE LEUK ESTERASE 3+ (NEGATIVE); URINE NITRITE NEGATIVE (NEGATIVE); URINE PROTEIN 3+ (NEGATIVE); URINE RBC 8596 /uL (0-23.9); URINE WBC 5043 /uL (0-25.8)
[2021-08-25] MEDS: NOREPINEPHRINE BITARTRATE 16,000 MCG in SODIUM CHLORIDE 484 ML IV SCH (11:09)
[2021-08-25] MEDS: VASOPRESSIN 40 UNITS/100 ML BAG IV SCH (11:12)
[2021-08-25 11:31] LABS: YEAST PRESENT (NEGATIVE)
[2021-08-25] MEDS ORDERED: MIDAZOLAM HCL 5 MG/1 ML Single Dose Vial IVPUSH ONE (13:12)
[2021-08-25] MEDS: DEXMEDETOMIDINE IN 0.9 % NACL 400 MCG/100 ML VIAL IVPB SCH ×2 (13:33→23:13)
[2021-08-25] MEDS: FENTANYL NS IVPB 500 MCG/100 ML BAG IVPB SCH (16:10)
[2021-08-25] MEDS ORDERED: SODIUM CHLORIDE 250 ML IV PRN (17:14)
[2021-08-25] MEDS ORDERED: FUROSEMIDE 100 MG/10 ML INJECTABLE VIAL IVPB ONE (17:14)
[2021-08-25] MEDS: CHLORHEXIDINE GLUCONATE 4% CLEANSER FOR DECOLONIZATION TP SCH (23:13)
[2021-08-26 07:11] LABS: HEMATOCRIT 30.4 % (32.4-45.2); MCH 26.8 pg (25.7-33.7); MCHC 29.7 g/dl (32.0-36.0); MEAN CELL VOLUME 90.1 fl (80-96); MEAN PLT VOLUME 10.1 fl (7.5-11.1); PLATELET COUNT 183 10^3/uL (134-434); RBC 3.38 M/mm3 (3.60-5.2); RDW 19.8 % (11.6-15.6); WHITE BLOOD COUNT 22.3 K/mm3 (4.0-10.0)
[2021-08-26] MEDS: INSULIN SLIDING SCALE (NOVOLOG) 1 VIAL SQ SCH ×4 (07:12→23:30)
[2021-08-26 07:21] LABS: INR 1.15 (0.83-1.09); PROTHROMBIN TIME (PATIENT) 13.3 SEC (9.7-13.0)
[2021-08-26 07:24] LABS: ACTIVATED PTT 46.1 SECONDS (25.2-36.5)
[2021-08-26 08:23] LABS: ALK PHOS 71 U/L (45-117); ANION GAP 11 MMOL/L (8-16); BILIRUBIN,TOTAL 0.9 mg/dL (0.2-1); BLOOD UREA NITROGEN 105.1 mg/dL (7-18); CALCIUM 7.6 mg/dL (8.5-10.1); CHLORIDE 105 mmol/L (98-107); CO2 26 mmol/L (21-32); GLUCOSE,RANDOM 328 mg/dL (74-106); MAGNESIUM 2.4 mg/dL (1.8-2.4); SGOT/AST 14 U/L (15-37); SGPT/ALT 67 U/L (13-61); SODIUM 142 mmol/L (136-145); TOT PROT 4.9 g/dl (6.4-8.2)
[2021-08-26] MEDS ORDERED: FUROSEMIDE 40 MG/4 ML INJECTABLE VIAL IVPUSH ONE (08:37)
[2021-08-26] MEDS ORDERED: METOLAZONE 2.5 MG TABLET (FP) PO ONE (08:37)
[2021-08-26] MEDS: VASOPRESSIN 40 UNITS/100 ML BAG IV SCH (08:42)
[2021-08-26 10:21] LABS: ANISOCYTOSIS 2+; MACROCYTOSIS 0; OVALOCYTE 2+; PLATELET ESTIMATE NORMAL; TOXIC GRANULATION 2+
[2021-08-26] MEDS: FLUDROCORTISONE ACETATE 0.1 MG TABLET (FP) GT SCH (10:31)
[2021-08-26] MEDS: INSULIN (LEVEMIR) 100 UNITS/ML UNITS SQ SCH ×2 (10:33→22:43)
[2021-08-26] MEDS: PANTOPRAZOLE SODIUM 40 MG VIAL IVPUSH SCH (10:34)
[2021-08-26] MEDS: HYDROCORTISONE SOD SUCCINATE 100 MG/2 ML VIAL IVPUSH SCH ×2 (10:35→22:42)
[2021-08-26] MEDS: DEXMEDETOMIDINE IN 0.9 % NACL 400 MCG/100 ML VIAL IVPB SCH (13:00)
[2021-08-26] MEDS: FENTANYL NS IVPB 500 MCG/100 ML BAG IVPB SCH (15:00)
[2021-08-26] MEDS: HEPARIN - 25,000 UNIT in SODIUM CHLORIDE 495 ML IV SCH (17:45)
[2021-08-26] MEDS: NOREPINEPHRINE BITARTRATE 16,000 MCG in SODIUM CHLORIDE 484 ML IV SCH (17:46)
[2021-08-26] MEDS: CHLORHEXIDINE GLUCONATE 4% CLEANSER FOR DECOLONIZATION TP SCH (22:43)
[2021-08-27 07:25] LABS: HEMOGLOBIN 8.7 GM/dL (10.7-15.3); MCH 27.4 pg (25.7-33.7); MCHC 30.9 g/dl (32.0-36.0); MEAN CELL VOLUME 88.6 fl (80-96); MEAN PLT VOLUME 9.5 fl (7.5-11.1); PLATELET COUNT 161 10^3/uL (134-434); RBC 3.16 M/mm3 (3.60-5.2); RDW 20.2 % (11.6-15.6); WHITE BLOOD COUNT 23.4 K/mm3 (4.0-10.0)
[2021-08-27 07:35] LABS: INR 1.05 (0.83-1.09); PROTHROMBIN TIME (PATIENT) 12.1 SEC (9.7-13.0)
[2021-08-27 07:50] LABS: BLOOD UREA NITROGEN 84.9 mg/dL (7-18); CALCIUM 7.8 mg/dL (8.5-10.1); MAGNESIUM 2.1 mg/dL (1.8-2.4)
[2021-08-27 07:53] LABS: CREATININE 3.5 mg/dL (0.55-1.3); PHOSPHOROUS 5.8 mg/dL (2.5-4.9)
[2021-08-27 07:55] LABS: BILIRUBIN,TOTAL 0.7 mg/dL (0.2-1)
[2021-08-27] MEDS: INSULIN SLIDING SCALE (NOVOLOG) 1 VIAL SQ SCH ×4 (07:59→17:09)
[2021-08-27 08:08] LABS: ACTIVATED PTT 143.3 SECONDS (25.2-36.5)
[2021-08-27] MEDS: INSULIN (LEVEMIR) 100 UNITS/ML UNITS SQ SCH ×2 (08:08→22:23)
[2021-08-27] MEDS ORDERED: MEROPENEM 1 GM in DEXTROSE 5%-WATER 100 ML IVPB SCH (08:30)
[2021-08-27 09:39] LABS: ANISOCYTOSIS 1+; MACROCYTOSIS 0; PLATELET ESTIMATE NORMAL
[2021-08-27] MEDS: FUROSEMIDE INJECTION 100 MG in DEXTROSE 5%-WATER - 40 ML IVPB SCH ×2 (10:19→16:10)
[2021-08-27] MEDS: DEXMEDETOMIDINE IN 0.9 % NACL 400 MCG/100 ML VIAL IVPB SCH ×2 (10:20→14:50)
[2021-08-27] MEDS: FENTANYL NS IVPB 500 MCG/100 ML BAG IVPB SCH ×2 (10:25→15:06)
[2021-08-27] MEDS ORDERED: MEROPENEM 1 GM VIAL (RESTRICTED TO ID) IVPB ONE ×2 (10:33→22:25)
[2021-08-27] MEDS ORDERED: DEXTROSE 5%-WATER 100 ML IVPB ONE ×2 (10:34→22:25)
[2021-08-27] MEDS: MEROPENEM 1 GM in DEXTROSE 5%-WATER 100 ML IVPB SCH ×2 (10:37→22:39)
[2021-08-27] MEDS: PANTOPRAZOLE SODIUM 40 MG VIAL IVPUSH SCH (10:37)
[2021-08-27] MEDS: HYDROCORTISONE SOD SUCCINATE 100 MG/2 ML VIAL IVPUSH SCH (10:37)
[2021-08-27] MEDS: METOLAZONE 2.5 MG TABLET (FP) PO SCH (10:48)
[2021-08-27] MEDS ORDERED: RAPID SEQUENCE INTUBATION KIT NR ONE (11:02)
[2021-08-27] MEDS: HEPARIN - 25,000 UNIT in SODIUM CHLORIDE 495 ML IV SCH (16:33)
[2021-08-27] MEDS ORDERED: dilTIAZem HCL 50 MG/10 ML - 10 ML VIAL IVPUSH ONE ×2 (17:10→19:07)
[2021-08-27] MEDS ORDERED: dilTIAZem HCL 125 MG/25 ML - 25 ML VIAL ONE ×2 (17:12→19:16)
[2021-08-27] MEDS ORDERED: dilTIAZem HCL 25 MG/5 ML - 5 ML VIAL IVPUSH ONE (17:56)
[2021-08-27] MEDS ORDERED: DAPTOMYCIN 720 MG in SODIUM CHLORIDE 50 ML IVPB ONE (18:30)
[2021-08-27] MEDS ORDERED: MIDAZOLAM HCL 2 MG/2 ML SINGLE DOSE VIAL IVPUSH PRN (19:50)
[2021-08-27] MEDS ORDERED: MIDAZOLAM IN 0.9 % SOD.CHLORID 1 MG/1 ML PLAST..BAG ONE (19:53)
[2021-08-27] MEDS: CHLORHEXIDINE GLUCONATE 4% CLEANSER FOR DECOLONIZATION TP SCH (22:23)
[2021-08-28] MEDS: FENTANYL NS IVPB 500 MCG/100 ML BAG IVPB SCH ×3 (02:06→13:46)
[2021-08-28] MEDS: INSULIN SLIDING SCALE (NOVOLOG) 1 VIAL SQ SCH ×4 (02:52→18:03)
[2021-08-28] MEDS: INSULIN (LEVEMIR) 100 UNITS/ML UNITS SQ SCH ×2 (06:02→22:38)
[2021-08-28 07:42] LABS: BASO % 0.3 % (0-2.0); EOS % 0.5 % (0-4.5); HEMATOCRIT 28.1 % (32.4-45.2); HEMOGLOBIN 8.5 GM/dL (10.7-15.3); LYMPH % 2.7 % (8-40); MCH 27.1 pg (25.7-33.7); MCHC 30.2 g/dl (32.0-36.0); MEAN CELL VOLUME 89.8 fl (80-96); MEAN PLT VOLUME 9.7 fl (7.5-11.1); MONO % 10.8 % (3.8-10.2); NEUT % 85.7 % (42.8-82.8); PLATELET COUNT 158 10^3/uL (134-434); RBC 3.13 M/mm3 (3.60-5.2); RDW 19.5 % (11.6-15.6)
[2021-08-28 07:47] LABS: WHITE BLOOD COUNT 39.3 K/mm3 (4.0-10.0)
[2021-08-28 07:52] LABS: INR 1.03 (0.83-1.09); PROTHROMBIN TIME (PATIENT) 11.8 SEC (9.7-13.0)
[2021-08-28 07:55] LABS: ACTIVATED PTT 45.4 SECONDS (25.2-36.5)
[2021-08-28 07:59] LABS: CALCIUM 7.8 mg/dL (8.5-10.1)
[2021-08-28 08:00] LABS: ALBUMIN 1.8 g/dl (3.4-5.0); BLOOD UREA NITROGEN 88.2 mg/dL (7-18); MAGNESIUM 2.3 mg/dL (1.8-2.4)
[2021-08-28 08:03] LABS: CREATININE 3.8 mg/dL (0.55-1.3); PHOSPHOROUS 5.2 mg/dL (2.5-4.9)
[2021-08-28 08:04] LABS: BILIRUBIN,TOTAL 0.8 mg/dL (0.2-1)
[2021-08-28] MEDS ORDERED: MEROPENEM 1 GM VIAL (RESTRICTED TO ID) IVPB ONE ×2 (08:47→22:36)
[2021-08-28] MEDS ORDERED: DEXTROSE 5%-WATER 100 ML IVPB ONE ×2 (08:47→22:36)
[2021-08-28] MEDS: HEPARIN NA (PORCINE) 5,000 UNITS/ML 1ML VIAL IVPUSH PRN (08:51)
[2021-08-28] MEDS: PANTOPRAZOLE SODIUM 40 MG VIAL IVPUSH SCH (09:05)
[2021-08-28] MEDS: HYDROCORTISONE SOD SUCCINATE 100 MG/2 ML VIAL IVPUSH SCH (09:05)
[2021-08-28 09:07] LABS: ANISOCYTOSIS 2+; MACROCYTOSIS 1+; PLATELET ESTIMATE DECREASED
[2021-08-28] MEDS: MEROPENEM 1 GM in DEXTROSE 5%-WATER 100 ML IVPB SCH ×2 (09:07→22:39)
[2021-08-28] MEDS: DEXMEDETOMIDINE IN 0.9 % NACL 400 MCG/100 ML VIAL IVPB SCH ×5 (09:07→22:00)
[2021-08-28] MEDS: METOLAZONE 2.5 MG TABLET (FP) PO SCH (10:57)
[2021-08-28] MEDS ORDERED: SODIUM CHLORIDE 250 ML IV PRN (12:00)
[2021-08-28] MEDS: ALBUMIN HUMAN 25% 12.5 GM/50 ML VIAL IV SCH ×4 (12:30→14:38)
[2021-08-28] MEDS: FUROSEMIDE INJECTION 100 MG in DEXTROSE 5%-WATER - 40 ML IVPB SCH (13:48)
[2021-08-28] MEDS: HEPARIN - 25,000 UNIT in SODIUM CHLORIDE 495 ML IV SCH (14:36)
[2021-08-28] MEDS: NOREPINEPHRINE BITARTRATE 16,000 MCG in SODIUM CHLORIDE 484 ML IV SCH ×2 (14:43→22:37)
[2021-08-28] MEDS ORDERED: DEXTROSE 10%-WATER 500 ML INFUS.BAG IV ONE (22:35)
[2021-08-28] MEDS: CHLORHEXIDINE GLUCONATE 4% CLEANSER FOR DECOLONIZATION TP SCH (22:38)
[2021-08-29] MEDS: INSULIN SLIDING SCALE (NOVOLOG) 1 VIAL SQ SCH ×4 (00:45→17:31)
[2021-08-29] MEDS: NOREPINEPHRINE BITARTRATE 16,000 MCG in SODIUM CHLORIDE 484 ML IV SCH (00:45)
[2021-08-29] MEDS: FUROSEMIDE INJECTION 100 MG in DEXTROSE 5%-WATER - 40 ML IVPB SCH ×2 (05:21→18:15)
[2021-08-29 07:10] LABS: HEMATOCRIT 26.1 % (32.4-45.2); HEMOGLOBIN 8.1 GM/dL (10.7-15.3); MCH 27.2 pg (25.7-33.7); MCHC 30.9 g/dl (32.0-36.0); MEAN CELL VOLUME 87.9 fl (80-96); MEAN PLT VOLUME 9.3 fl (7.5-11.1); PLATELET COUNT 110 10^3/uL (134-434); RBC 2.97 M/mm3 (3.60-5.2); RDW 19.3 % (11.6-15.6); WHITE BLOOD COUNT 27.9 K/mm3 (4.0-10.0)
[2021-08-29] MEDS: INSULIN (LEVEMIR) 100 UNITS/ML UNITS SQ SCH ×2 (07:14→22:42)
[2021-08-29] MEDS ORDERED: dilTIAZem HCL 50 MG/10 ML - 10 ML VIAL IVPUSH ONE ×2 (07:20→08:15)
[2021-08-29] MEDS ORDERED: DEXTROSE 5%-WATER 100 ML IVPB ONE ×2 (07:42→21:39)
[2021-08-29] MEDS ORDERED: MEROPENEM 1 GM VIAL (RESTRICTED TO ID) IVPB ONE ×2 (07:42→21:39)
[2021-08-29] MEDS: HEPARIN NA (PORCINE) 5,000 UNITS/ML 1ML VIAL IVPUSH PRN ×2 (08:01→15:44)
[2021-08-29] MEDS: DEXMEDETOMIDINE IN 0.9 % NACL 400 MCG/100 ML VIAL IVPB SCH ×4 (08:05→22:30)
[2021-08-29] MEDS: PANTOPRAZOLE SODIUM 40 MG VIAL IVPUSH SCH (09:46)
[2021-08-29] MEDS: HYDROCORTISONE SOD SUCCINATE 100 MG/2 ML VIAL IVPUSH SCH (09:46)
[2021-08-29] MEDS: MEROPENEM 1 GM in DEXTROSE 5%-WATER 100 ML IVPB SCH ×2 (09:46→22:40)
[2021-08-29] MEDS: LEVOTHYROXINE NA 125 MCG TABLET (FP) PO SCH (12:36)
[2021-08-29] MEDS: METOPROLOL TARTRATE 25 MG TABLET (FP) PO SCH ×2 (12:36→22:40)
[2021-08-29] MEDS: HEPARIN - 25,000 UNIT in SODIUM CHLORIDE 495 ML IV SCH (12:37)
[2021-08-29] MEDS: FENTANYL NS IVPB 500 MCG/100 ML BAG IVPB SCH ×3 (12:37→22:37)
[2021-08-29] MEDS: METOLAZONE 2.5 MG TABLET (FP) PO SCH (12:49)
[2021-08-29] MEDS ORDERED: DEXTROSE 50%-WATER 25 GM/50 ML DISP.SYRIN IVPUSH ONE (13:00)
[2021-08-29] MEDS ORDERED: DEXTROSE 50%-WATER - 25 GM/50 ML VIAL IVPUSH PRN (13:35)
[2021-08-29] MEDS ORDERED: AMIODARONE IN DEXTROSE,ISO-OSM 360 MG/200 ML BAG ONE (15:12)
[2021-08-29] MEDS ORDERED: AMIODARONE IN DEXTROSE,ISO-OSM 150 MG/100 ML BAG ONE (15:16)
[2021-08-29] MEDS ORDERED: AMIODARONE IN DEXTROSE,ISO-OSM 150 MG/100 ML BAG IVPB ONE (15:30)
[2021-08-29] MEDS ORDERED: AMIODARONE IN DEXTROSE,ISO-OSM 360 MG/200 ML BAG IVPB ONE ×2 (15:40→21:40)
[2021-08-29] MEDS ORDERED: PNEUMOC 13-VAL CONJ-DIP CRM/PF 0.5 ML DISP.SYRIN IM ONE (17:26)
[2021-08-29] MEDS: CHLORHEXIDINE GLUCONATE 4% CLEANSER FOR DECOLONIZATION TP SCH (22:43)
[2021-08-30] MEDS: NOREPINEPHRINE BITARTRATE 16,000 MCG in SODIUM CHLORIDE 484 ML IV SCH ×2 (00:25→18:51)
[2021-08-30] MEDS: MEROPENEM 1 GM in DEXTROSE 5%-WATER 100 ML IVPB SCH ×3 (00:26→21:41)
[2021-08-30] MEDS: INSULIN SLIDING SCALE (NOVOLOG) 1 VIAL SQ SCH ×5 (01:24→23:54)
[2021-08-30] MEDS: DEXMEDETOMIDINE IN 0.9 % NACL 400 MCG/100 ML VIAL IVPB SCH ×7 (02:40→21:40)
[2021-08-30] MEDS: INSULIN (LEVEMIR) 100 UNITS/ML UNITS SQ SCH ×2 (06:12→21:39)
[2021-08-30] MEDS: HEPARIN - 25,000 UNIT in SODIUM CHLORIDE 495 ML IV SCH ×3 (06:17→23:50)
[2021-08-30] MEDS: LEVOTHYROXINE NA 125 MCG TABLET (FP) PO SCH (06:38)
[2021-08-30] MEDS ORDERED: DEXTROSE 5%-WATER 100 ML IVPB ONE ×2 (08:05→21:36)
[2021-08-30] MEDS ORDERED: MEROPENEM 1 GM VIAL (RESTRICTED TO ID) IVPB ONE ×2 (08:05→21:36)
[2021-08-30] MEDS: HEPARIN NA (PORCINE) 5,000 UNITS/ML 1ML VIAL IVPUSH PRN (08:14)
[2021-08-30 08:28] LABS: BASO % 0.5 % (0-2.0); EOS % 0.6 % (0-4.5); HEMATOCRIT 25.6 % (32.4-45.2); HEMOGLOBIN 7.7 GM/dL (10.7-15.3); MCHC 30.2 g/dl (32.0-36.0); MEAN CELL VOLUME 89.4 fl (80-96); MEAN PLT VOLUME 9.5 fl (7.5-11.1); MONO % 8.6 % (3.8-10.2); NEUT % 85.3 % (42.8-82.8); PLATELET COUNT 122 10^3/uL (134-434); RBC 2.86 M/mm3 (3.60-5.2); RDW 19.5 % (11.6-15.6); WHITE BLOOD COUNT 29.7 K/mm3 (4.0-10.0)
[2021-08-30 08:29] LABS: BLOOD UREA NITROGEN 70.2 mg/dL (7-18); CALCIUM 7.9 mg/dL (8.5-10.1)
[2021-08-30 08:30] LABS: ALBUMIN 1.9 g/dl (3.4-5.0); MAGNESIUM 2.1 mg/dL (1.8-2.4)
[2021-08-30 08:32] LABS: CREATININE 3.7 mg/dL (0.55-1.3); PHOSPHOROUS 5.2 mg/dL (2.5-4.9)
[2021-08-30 08:34] LABS: BILIRUBIN,TOTAL 0.8 mg/dL (0.2-1); TOT PROT 5.1 g/dl (6.4-8.2)
[2021-08-30] MEDS: FENTANYL NS IVPB 500 MCG/100 ML BAG IVPB SCH ×4 (09:45→21:39)
[2021-08-30] MEDS: PANTOPRAZOLE SODIUM 40 MG VIAL IVPUSH SCH (09:46)
[2021-08-30] MEDS: HYDROCORTISONE SOD SUCCINATE 100 MG/2 ML VIAL IVPUSH SCH (09:50)
[2021-08-30] MEDS: METOLAZONE 2.5 MG TABLET (FP) PO SCH (09:51)
[2021-08-30] MEDS: METOPROLOL TARTRATE 25 MG TABLET (FP) PO SCH ×2 (09:51→21:41)
[2021-08-30] MEDS ORDERED: SODIUM CHLORIDE 250 ML IV PRN (10:06)
[2021-08-30 13:06] LABS: ANISOCYTOSIS 2+; MACROCYTOSIS 0
[2021-08-30] MEDS ORDERED: AMIODARONE HCL INJECTION 150 MG in DEXTROSE 5%-WATER - 100 ML IVPB ONE (15:40)
[2021-08-30] MEDS ORDERED: AMIODARONE HCL 150 MG/3 ML VIAL IVPUSH ONE (16:00)
[2021-08-30] MEDS: FUROSEMIDE INJECTION 100 MG in DEXTROSE 5%-WATER - 40 ML IVPB SCH (16:00)
[2021-08-30] MEDS ORDERED: AMIODARONE IN DEXTROSE,ISO-OSM 150 MG/100 ML BAG ONE (16:30)
[2021-08-30] MEDS: AMIODARONE HCL 200 MG TABLET PO SCH ×2 (17:22→23:55)
[2021-08-30] MEDS ORDERED: AMIODARONE HCL 200 MG TABLET PO SCH (18:00)
[2021-08-30] MEDS: CHLORHEXIDINE GLUCONATE 4% CLEANSER FOR DECOLONIZATION TP SCH (21:40)
[2021-08-31] MEDS ORDERED: AMIODARONE HCL 200 MG TABLET PO SCH
[2021-08-31] MEDS: DEXMEDETOMIDINE IN 0.9 % NACL 400 MCG/100 ML VIAL IVPB SCH (00:17)
[2021-08-31] MEDS: FUROSEMIDE INJECTION 100 MG in DEXTROSE 5%-WATER - 40 ML IVPB SCH ×4 (01:14→19:07)
[2021-08-31] MEDS ORDERED: FENTANYL NS IVPB 500 MCG/100 ML BAG IVPB ONE ×3 (02:27→11:32)
[2021-08-31] MEDS: FENTANYL NS IVPB 500 MCG/100 ML BAG IVPB SCH ×3 (02:40→14:00)
[2021-08-31] MEDS: LEVOTHYROXINE NA 125 MCG TABLET (FP) PO SCH (06:12)
[2021-08-31] MEDS: INSULIN (LEVEMIR) 100 UNITS/ML UNITS SQ SCH (06:27)
[2021-08-31] MEDS: INSULIN SLIDING SCALE (NOVOLOG) 1 VIAL SQ SCH ×3 (06:28→17:40)
[2021-08-31 07:39] LABS: HEMATOCRIT 24.8 % (32.4-45.2); HEMOGLOBIN 7.5 GM/dL (10.7-15.3); MCHC 30.4 g/dl (32.0-36.0); MEAN CELL VOLUME 88.7 fl (80-96); MEAN PLT VOLUME 9.2 fl (7.5-11.1); PLATELET COUNT 110 10^3/uL (134-434); RBC 2.79 M/mm3 (3.60-5.2); RDW 19.4 % (11.6-15.6); WHITE BLOOD COUNT 22.6 K/mm3 (4.0-10.0)
[2021-08-31 07:45] LABS: INR 1.16 (0.83-1.09); PROTHROMBIN TIME (PATIENT) 13.4 SEC (9.7-13.0)
[2021-08-31 07:48] LABS: ACTIVATED PTT 51.2 SECONDS (25.2-36.5)
[2021-08-31 07:59] LABS: ALBUMIN 1.8 g/dl (3.4-5.0); BLOOD UREA NITROGEN 59.4 mg/dL (7-18); CALCIUM 7.7 mg/dL (8.5-10.1)
[2021-08-31 08:02] LABS: CREATININE 3.2 mg/dL (0.55-1.3); PHOSPHOROUS 4.7 mg/dL (2.5-4.9)
[2021-08-31 08:04] LABS: BILIRUBIN,TOTAL 0.8 mg/dL (0.2-1); TOT PROT 5.2 g/dl (6.4-8.2)
[2021-08-31] MEDS ORDERED: DEXTROSE 5%-WATER 100 ML IVPB ONE (08:48)
[2021-08-31] MEDS ORDERED: MEROPENEM 1 GM VIAL (RESTRICTED TO ID) IVPB ONE ×2 (08:48→21:37)
[2021-08-31] MEDS ORDERED: SODIUM CHLORIDE IVPB SCH (09:00)
[2021-08-31] MEDS ORDERED: FENTANYL IVPB SCH (09:00)
[2021-08-31] MEDS: PROPOFOL 1,000,000 MCG/100 ML VIAL IVPB SCH (10:17)
[2021-08-31] MEDS: SODIUM CHLORIDE IVPB SCH (10:19)
[2021-08-31] MEDS: DEXMEDETOMIDINE HCL IVPB SCH (10:19)
[2021-08-31] MEDS: NOREPINEPHRINE BITARTRATE IVPB SCH ×2 (10:33→10:40)
[2021-08-31] MEDS: WATER IVPB SCH ×2 (10:33→10:40)
[2021-08-31] MEDS: DEXTROSE 5% IVPB SCH ×2 (10:33→10:40)
[2021-08-31] MEDS: HYDROCORTISONE SOD SUCCINATE 100 MG/2 ML VIAL IVPUSH SCH (10:50)
[2021-08-31] MEDS: MEROPENEM 1 GM in DEXTROSE 5%-WATER - 50 ML IVPB SCH ×2 (10:50→21:51)
[2021-08-31] MEDS: AMIODARONE HCL 200 MG TABLET PO SCH ×3 (10:51→21:51)
[2021-08-31] MEDS: PANTOPRAZOLE SODIUM 40 MG VIAL IVPUSH SCH (10:51)
[2021-08-31] MEDS: METOLAZONE 2.5 MG TABLET (FP) PO SCH (10:52)
[2021-08-31] MEDS: METOPROLOL TARTRATE 25 MG TABLET (FP) PO SCH ×2 (10:53→21:52)
[2021-08-31 10:54] LABS: ANISOCYTOSIS 1+; MACROCYTOSIS 0
[2021-08-31 10:55] LABS: PLATELET ESTIMATE SLT DECREASE
[2021-08-31] MEDS: HEPARIN - 25,000 UNIT in SODIUM CHLORIDE 245 ML IV SCH (15:34)
[2021-08-31] MEDS ORDERED: DEXTROSE 5%-WATER - 50 ML IVPB ONE (21:37)
[2021-08-31] MEDS: CHLORHEXIDINE GLUCONATE 4% CLEANSER FOR DECOLONIZATION TP SCH (21:52)
[2021-09-01] MEDS: LEVOTHYROXINE NA 125 MCG TABLET (FP) PO SCH (06:22)
[2021-09-01] MEDS: INSULIN SLIDING SCALE (NOVOLOG) 1 VIAL SQ SCH ×5 (07:02→22:59)
[2021-09-01] MEDS: INSULIN (LEVEMIR) 100 UNITS/ML UNITS SQ SCH ×3 (07:03→22:54)
[2021-09-01 07:53] LABS: HEMOGLOBIN 7.5 GM/dL (10.7-15.3); MCH 26.7 pg (25.7-33.7); MCHC 30.1 g/dl (32.0-36.0); MEAN CELL VOLUME 88.7 fl (80-96); PLATELET COUNT 122 10^3/uL (134-434); RBC 2.82 M/mm3 (3.60-5.2); RDW 19.9 % (11.6-15.6); WHITE BLOOD COUNT 19.3 K/mm3 (4.0-10.0)
[2021-09-01 08:01] LABS: CALCIUM 7.8 mg/dL (8.5-10.1)
[2021-09-01 08:02] LABS: ALBUMIN 1.6 g/dl (3.4-5.0); BLOOD UREA NITROGEN 66.6 mg/dL (7-18); MAGNESIUM 1.9 mg/dL (1.8-2.4)
[2021-09-01 08:05] LABS: CREATININE 3.4 mg/dL (0.55-1.3)
[2021-09-01 08:06] LABS: BILIRUBIN,TOTAL 0.8 mg/dL (0.2-1); TOT PROT 5.1 g/dl (6.4-8.2)
[2021-09-01] MEDS ORDERED: MEROPENEM 1 GM VIAL (RESTRICTED TO ID) IVPB ONE ×2 (09:02→22:28)
[2021-09-01] MEDS ORDERED: DEXTROSE 5%-WATER - 50 ML IVPB ONE ×2 (09:02→22:28)
[2021-09-01 10:03] LABS: ANISOCYTOSIS 2+; MACROCYTOSIS 0; OVALOCYTE 2+; PLATELET ESTIMATE DECREASED
[2021-09-01] MEDS: HEPARIN - 25,000 UNIT in SODIUM CHLORIDE 245 ML IV SCH ×2 (10:30→19:00)
[2021-09-01] MEDS: FUROSEMIDE INJECTION 100 MG in DEXTROSE 5%-WATER - 40 ML IVPB SCH (10:30)
[2021-09-01] MEDS: METOPROLOL TARTRATE 25 MG TABLET (FP) PO SCH (10:32)
[2021-09-01] MEDS: MEROPENEM 1 GM in DEXTROSE 5%-WATER - 50 ML IVPB SCH ×2 (10:32→22:55)
[2021-09-01] MEDS: PANTOPRAZOLE SODIUM 40 MG VIAL IVPUSH SCH (10:34)
[2021-09-01] MEDS: HYDROCORTISONE SOD SUCCINATE 100 MG/2 ML VIAL IVPUSH SCH (10:34)
[2021-09-01] MEDS: PROPOFOL 1,000,000 MCG/100 ML VIAL IVPB SCH ×2 (10:37→17:05)
[2021-09-01] MEDS: SILVER SULFADIAZINE 1% TOP CREAM 50 GM JAR TP SCH (10:57)
[2021-09-01] MEDS: AMIODARONE HCL 200 MG TABLET PO SCH ×2 (10:57→22:55)
[2021-09-01] MEDS ORDERED: METOPROLOL TARTRATE 5 MG/5 ML VIAL IVPUSH PRN (11:39)
[2021-09-01] MEDS: METOLAZONE 2.5 MG TABLET (FP) PO SCH (13:48)
[2021-09-01] MEDS: FENTANYL NS IVPB 500 MCG/100 ML BAG IVPB SCH ×2 (13:49→18:25)
[2021-09-01] MEDS: CHLORHEXIDINE GLUCONATE 4% CLEANSER FOR DECOLONIZATION TP SCH (22:54)
[2021-09-02] MEDS: INSULIN (LEVEMIR) 100 UNITS/ML UNITS SQ SCH ×2 (07:09→23:31)
[2021-09-02] MEDS: LEVOTHYROXINE NA 125 MCG TABLET (FP) PO SCH (07:09)
[2021-09-02] MEDS: INSULIN SLIDING SCALE (NOVOLOG) 1 VIAL SQ SCH ×4 (07:10→23:29)
[2021-09-02 07:26] LABS: HEMATOCRIT 24.3 % (32.4-45.2); HEMOGLOBIN 7.3 GM/dL (10.7-15.3); MCH 26.7 pg (25.7-33.7); MCHC 30.2 g/dl (32.0-36.0); MEAN CELL VOLUME 88.1 fl (80-96); MEAN PLT VOLUME 9.3 fl (7.5-11.1); PLATELET COUNT 126 10^3/uL (134-434); RBC 2.75 M/mm3 (3.60-5.2); RDW 19.9 % (11.6-15.6); WHITE BLOOD COUNT 16.2 K/mm3 (4.0-10.0)
[2021-09-02 07:46] LABS: CALCIUM 8.2 mg/dL (8.5-10.1)
[2021-09-02 07:47] LABS: ALBUMIN 1.6 g/dl (3.4-5.0); BLOOD UREA NITROGEN 69.1 mg/dL (7-18); MAGNESIUM 2.1 mg/dL (1.8-2.4)
[2021-09-02 07:50] LABS: CREATININE 3.4 mg/dL (0.55-1.3); PHOSPHOROUS 5.3 mg/dL (2.5-4.9)
[2021-09-02 07:51] LABS: TOT PROT 5.1 g/dl (6.4-8.2)
[2021-09-02 07:52] LABS: BILIRUBIN,TOTAL 0.6 mg/dL (0.2-1)
[2021-09-02] MEDS: FUROSEMIDE INJECTION 100 MG in DEXTROSE 5%-WATER - 40 ML IVPB SCH ×2 (08:00→15:00)
[2021-09-02] MEDS ORDERED: DEXTROSE 5%-WATER - 50 ML IVPB ONE ×2 (09:32→20:24)
[2021-09-02] MEDS ORDERED: MEROPENEM 1 GM VIAL (RESTRICTED TO ID) IVPB ONE ×2 (09:32→20:24)
[2021-09-02] MEDS: MEROPENEM 1 GM in DEXTROSE 5%-WATER - 50 ML IVPB SCH ×2 (09:50→21:16)
[2021-09-02 09:54] LABS: ANISOCYTOSIS 2+; MACROCYTOSIS 1+; OVALOCYTE 1+
[2021-09-02] MEDS: PANTOPRAZOLE SODIUM 40 MG VIAL IVPUSH SCH (10:00)
[2021-09-02] MEDS: HYDROCORTISONE SOD SUCCINATE 100 MG/2 ML VIAL IVPUSH SCH (10:00)
[2021-09-02] MEDS: FENTANYL NS IVPB 500 MCG/100 ML BAG IVPB SCH ×2 (10:02→15:37)
[2021-09-02] MEDS: AMIODARONE HCL 200 MG TABLET PO SCH ×2 (10:02→21:16)
[2021-09-02] MEDS: METOLAZONE 2.5 MG TABLET (FP) PO SCH (10:19)
[2021-09-02] MEDS: PROPOFOL 1,000,000 MCG/100 ML VIAL IVPB SCH (11:36)
[2021-09-02] MEDS: SODIUM CHLORIDE IVPB SCH (11:37)
[2021-09-02] MEDS: DEXMEDETOMIDINE HCL IVPB SCH (11:37)
[2021-09-02] MEDS: SILVER SULFADIAZINE 1% TOP CREAM 50 GM JAR TP SCH (14:00)
[2021-09-02] MEDS: CHLORHEXIDINE GLUCONATE 4% CLEANSER FOR DECOLONIZATION TP SCH (21:16)
[2021-09-02 21:43] LABS: INR 1.13 (0.83-1.09)
[2021-09-02 21:57] LABS: ACTIVATED PTT 130.5 SECONDS (25.2-36.5)
[2021-09-03] MEDS: INSULIN SLIDING SCALE (NOVOLOG) 1 VIAL SQ SCH ×3 (07:04→17:16)
[2021-09-03] MEDS: LEVOTHYROXINE NA 125 MCG TABLET (FP) PO SCH (07:05)
[2021-09-03] MEDS: INSULIN (LEVEMIR) 100 UNITS/ML UNITS SQ SCH ×2 (07:05→21:34)
[2021-09-03 07:19] LABS: HEMATOCRIT 23.5 % (32.4-45.2); HEMOGLOBIN 7.3 GM/dL (10.7-15.3); MCH 27.3 pg (25.7-33.7); MEAN CELL VOLUME 88.1 fl (80-96); MEAN PLT VOLUME 9.1 fl (7.5-11.1); PLATELET COUNT 123 10^3/uL (134-434); RBC 2.67 M/mm3 (3.60-5.2); RDW 19.6 % (11.6-15.6); WHITE BLOOD COUNT 16.7 K/mm3 (4.0-10.0)
[2021-09-03] MEDS ORDERED: LORazepam 2 MG/ML SDV VIAL IVPUSH PRN (09:10)
[2021-09-03] MEDS: FENTANYL NS IVPB 500 MCG/100 ML BAG IVPB SCH ×2 (09:19→12:16)
[2021-09-03] MEDS ORDERED: MEROPENEM 1 GM VIAL (RESTRICTED TO ID) IVPB ONE ×2 (09:35→20:49)
[2021-09-03] MEDS ORDERED: DEXTROSE 5%-WATER - 50 ML IVPB ONE ×2 (09:36→20:49)
[2021-09-03] MEDS: MEROPENEM 1 GM in DEXTROSE 5%-WATER - 50 ML IVPB SCH ×2 (09:47→21:29)
[2021-09-03] MEDS: PANTOPRAZOLE SODIUM 40 MG VIAL IVPUSH SCH (09:53)
[2021-09-03] MEDS: HYDROCORTISONE SOD SUCCINATE 100 MG/2 ML VIAL IVPUSH SCH (09:54)
[2021-09-03] MEDS: SILVER SULFADIAZINE 1% TOP CREAM 50 GM JAR TP SCH (09:55)
[2021-09-03] MEDS: FUROSEMIDE INJECTION 100 MG in DEXTROSE 5%-WATER - 40 ML IVPB SCH ×3 (09:56→22:07)
[2021-09-03] MEDS: METOLAZONE 2.5 MG TABLET (FP) PO SCH (09:56)
[2021-09-03] MEDS: AMIODARONE HCL 200 MG TABLET PO SCH ×2 (09:56→21:29)
[2021-09-03 09:57] LABS: BLOOD UREA NITROGEN 74.6 mg/dL (7-18); CALCIUM 8.4 mg/dL (8.5-10.1); CREATININE 3.5 mg/dL (0.55-1.3)
[2021-09-03 10:26] LABS: ANISOCYTOSIS 2+; MACROCYTOSIS 0; OVALOCYTE 2+
[2021-09-03] MEDS: WATER IVPB SCH (12:50)
[2021-09-03] MEDS: DEXTROSE 5% IVPB SCH (12:50)
[2021-09-03] MEDS: NOREPINEPHRINE BITARTRATE IVPB SCH (12:50)
[2021-09-03] MEDS: HEPARIN - 25,000 UNIT in SODIUM CHLORIDE 245 ML IV SCH ×2 (20:35→20:36)
[2021-09-03] MEDS: CHLORHEXIDINE GLUCONATE 4% CLEANSER FOR DECOLONIZATION TP SCH (21:34)
[2021-09-04] MEDS: HEPARIN - 25,000 UNIT in SODIUM CHLORIDE 245 ML IV SCH (00:07)
[2021-09-04] MEDS: INSULIN SLIDING SCALE (NOVOLOG) 1 VIAL SQ SCH ×4 (00:27→17:08)
[2021-09-04 01:29] LABS: HEMATOCRIT 23.5 % (32.4-45.2); HEMOGLOBIN 7.4 GM/dL (10.7-15.3); MCH 27.1 pg (25.7-33.7); MCHC 31.6 g/dl (32.0-36.0); MEAN CELL VOLUME 85.9 fl (80-96); MEAN PLT VOLUME 10.2 fl (7.5-11.1); PLATELET COUNT 136 10^3/uL (134-434); RBC 2.73 M/mm3 (3.60-5.2); RDW 19.6 % (11.6-15.6); WHITE BLOOD COUNT 20.7 K/mm3 (4.0-10.0)
[2021-09-04] MEDS: FENTANYL NS IVPB 500 MCG/100 ML BAG IVPB SCH ×4 (02:06→18:55)
[2021-09-04 02:14] LABS: ALBUMIN 1.6 g/dl (3.4-5.0); BILIRUBIN,TOTAL 0.7 mg/dL (0.2-1); BLOOD UREA NITROGEN 76.7 mg/dL (7-18); CALCIUM 7.7 mg/dL (8.5-10.1); CREATININE 3.7 mg/dL (0.55-1.3); MAGNESIUM 1.9 mg/dL (1.8-2.4); PHOSPHOROUS 5.4 mg/dL (2.5-4.9); TOT PROT 5.2 g/dl (6.4-8.2)
[2021-09-04] MEDS: FUROSEMIDE INJECTION 100 MG in DEXTROSE 5%-WATER - 40 ML IVPB SCH ×5 (04:23→18:56)
[2021-09-04] MEDS: LEVOTHYROXINE NA 125 MCG TABLET (FP) PO SCH (06:36)
[2021-09-04] MEDS: INSULIN (LEVEMIR) 100 UNITS/ML UNITS SQ SCH ×2 (06:36→21:43)
[2021-09-04] MEDS: PROPOFOL 1,000,000 MCG/100 ML VIAL IVPB SCH ×2 (07:00→14:00)
[2021-09-04 07:36] LABS: ANISOCYTOSIS 2+; MACROCYTOSIS 0; OVALOCYTE 2+
[2021-09-04] MEDS ORDERED: DEXTROSE 5%-WATER - 50 ML IVPB ONE ×2 (09:46→21:31)
[2021-09-04] MEDS ORDERED: MEROPENEM 1 GM VIAL (RESTRICTED TO ID) IVPB ONE ×2 (09:46→21:31)
[2021-09-04] MEDS: HYDROCORTISONE SOD SUCCINATE 100 MG/2 ML VIAL IVPUSH SCH (10:20)
[2021-09-04] MEDS: MEROPENEM 1 GM in DEXTROSE 5%-WATER - 50 ML IVPB SCH ×2 (10:20→21:34)
[2021-09-04] MEDS: AMIODARONE HCL 200 MG TABLET PO SCH ×2 (10:20→21:35)
[2021-09-04] MEDS: PANTOPRAZOLE SODIUM 40 MG VIAL IVPUSH SCH (10:20)
[2021-09-04] MEDS: METOLAZONE 2.5 MG TABLET (FP) PO SCH (10:31)
[2021-09-04] MEDS: SILVER SULFADIAZINE 1% TOP CREAM 50 GM JAR TP SCH (10:31)
[2021-09-04] MEDS: NOREPINEPHRINE BITARTRATE IVPB SCH ×3 (14:01→21:27)
[2021-09-04] MEDS: DEXTROSE 5% IVPB SCH ×3 (14:01→21:27)
[2021-09-04] MEDS: WATER IVPB SCH ×3 (14:01→21:27)
[2021-09-04] MEDS: CHLORHEXIDINE GLUCONATE 4% CLEANSER FOR DECOLONIZATION TP SCH (21:43)
[2021-09-05] MEDS: INSULIN SLIDING SCALE (NOVOLOG) 1 VIAL SQ SCH ×5 (00:10→23:02)
[2021-09-05] MEDS: HEPARIN - 25,000 UNIT in SODIUM CHLORIDE 245 ML IV SCH ×2 (01:06→16:06)
[2021-09-05] MEDS: FENTANYL NS IVPB 500 MCG/100 ML BAG IVPB SCH (03:00)
[2021-09-05] MEDS: PROPOFOL 1,000,000 MCG/100 ML VIAL IVPB SCH (04:50)
[2021-09-05] MEDS: FUROSEMIDE INJECTION 100 MG in DEXTROSE 5%-WATER - 40 ML IVPB SCH ×3 (05:48→16:07)
[2021-09-05] MEDS: LEVOTHYROXINE NA 125 MCG TABLET (FP) PO SCH (06:27)
[2021-09-05] MEDS: INSULIN (LEVEMIR) 100 UNITS/ML UNITS SQ SCH ×2 (06:28→23:02)
[2021-09-05 07:33] LABS: HEMATOCRIT 21.9 % (32.4-45.2); MCH 26.3 pg (25.7-33.7); MCHC 30.8 g/dl (32.0-36.0); MEAN CELL VOLUME 85.6 fl (80-96); MEAN PLT VOLUME 9.4 fl (7.5-11.1); PLATELET COUNT 177 10^3/uL (134-434); RBC 2.56 M/mm3 (3.60-5.2); RDW 19.8 % (11.6-15.6); WHITE BLOOD COUNT 27.5 K/mm3 (4.0-10.0)
[2021-09-05 07:55] LABS: CALCIUM 7.4 mg/dL (8.5-10.1)
[2021-09-05 07:56] LABS: ALBUMIN 1.6 g/dl (3.4-5.0); BLOOD UREA NITROGEN 78.8 mg/dL (7-18); MAGNESIUM 2.2 mg/dL (1.8-2.4)
[2021-09-05 07:59] LABS: PHOSPHOROUS 6.8 mg/dL (2.5-4.9)
[2021-09-05 08:00] LABS: BILIRUBIN,TOTAL 0.8 mg/dL (0.2-1); TOT PROT 5.4 g/dl (6.4-8.2)
[2021-09-05 08:18] LABS: HEMOGLOBIN 6.7 GM/dL (10.7-15.3)
[2021-09-05] MEDS ORDERED: MEROPENEM 1 GM VIAL (RESTRICTED TO ID) IVPB ONE ×2 (08:54→21:56)
[2021-09-05] MEDS ORDERED: DEXTROSE 5%-WATER - 50 ML IVPB ONE ×2 (08:54→21:57)
[2021-09-05] MEDS: MEROPENEM 1 GM in DEXTROSE 5%-WATER - 50 ML IVPB SCH ×2 (09:02→22:15)
[2021-09-05] MEDS: HYDROCORTISONE SOD SUCCINATE 100 MG/2 ML VIAL IVPUSH SCH (09:03)
[2021-09-05] MEDS: PANTOPRAZOLE SODIUM 40 MG VIAL IVPUSH SCH (09:03)
[2021-09-05] MEDS: METOLAZONE 2.5 MG TABLET (FP) PO SCH (09:05)
[2021-09-05] MEDS: SILVER SULFADIAZINE 1% TOP CREAM 50 GM JAR TP SCH (09:05)
[2021-09-05] MEDS: AMIODARONE HCL 200 MG TABLET PO SCH ×2 (09:15→22:14)
[2021-09-05] MEDS: WATER IVPB SCH (09:44)
[2021-09-05] MEDS: NOREPINEPHRINE BITARTRATE IVPB SCH (09:44)
[2021-09-05] MEDS: DEXTROSE 5% IVPB SCH (09:44)
[2021-09-05 10:40] LABS: ANISOCYTOSIS 2+; MACROCYTOSIS 0; OVALOCYTE 2+
[2021-09-05] MEDS ORDERED: SODIUM CHLORIDE IVPB ONE (20:00)
[2021-09-05] MEDS ORDERED: GENTAMICIN IVPB ONE (20:00)
[2021-09-05 21:00] LABS: HEMATOCRIT 25.5 % (32.4-45.2); HEMOGLOBIN 7.8 GM/dL (10.7-15.3); MCH 26.7 pg (25.7-33.7); MCHC 30.7 g/dl (32.0-36.0); MEAN CELL VOLUME 87.1 fl (80-96); MEAN PLT VOLUME 8.8 fl (7.5-11.1); PLATELET COUNT 157 10^3/uL (134-434); RBC 2.92 M/mm3 (3.60-5.2); RDW 17.9 % (11.6-15.6); WHITE BLOOD COUNT 23.6 K/mm3 (4.0-10.0)
[2021-09-05] MEDS: CHLORHEXIDINE GLUCONATE 4% CLEANSER FOR DECOLONIZATION TP SCH (22:13)
[2021-09-06] MEDS: INSULIN SLIDING SCALE (NOVOLOG) 1 VIAL SQ SCH ×4 (06:14→23:00)
[2021-09-06] MEDS: INSULIN (LEVEMIR) 100 UNITS/ML UNITS SQ SCH ×2 (06:14→22:57)
[2021-09-06] MEDS: LEVOTHYROXINE NA 125 MCG TABLET (FP) PO SCH (06:15)
[2021-09-06 07:03] LABS: HEMATOCRIT 24.9 % (32.4-45.2); HEMOGLOBIN 7.7 GM/dL (10.7-15.3); MCH 26.6 pg (25.7-33.7); MCHC 30.8 g/dl (32.0-36.0); MEAN CELL VOLUME 86.3 fl (80-96); MEAN PLT VOLUME 9.5 fl (7.5-11.1); PLATELET COUNT 168 10^3/uL (134-434); RBC 2.88 M/mm3 (3.60-5.2); RDW 18.2 % (11.6-15.6); WHITE BLOOD COUNT 24.3 K/mm3 (4.0-10.0)
[2021-09-06 07:25] LABS: ALBUMIN 1.6 g/dl (3.4-5.0); CALCIUM 7.4 mg/dL (8.5-10.1); MAGNESIUM 2.3 mg/dL (1.8-2.4)
[2021-09-06 07:29] LABS: PHOSPHOROUS 7.5 mg/dL (2.5-4.9)
[2021-09-06 07:30] LABS: BILIRUBIN,TOTAL 0.9 mg/dL (0.2-1); TOT PROT 5.3 g/dl (6.4-8.2)
[2021-09-06] MEDS ORDERED: DEXTROSE 5%-WATER - 50 ML IVPB ONE ×2 (08:58→21:42)
[2021-09-06] MEDS ORDERED: MEROPENEM 1 GM VIAL (RESTRICTED TO ID) IVPB ONE ×2 (08:58→21:42)
[2021-09-06] MEDS: PROPOFOL 1,000,000 MCG/100 ML VIAL IVPB SCH ×2 (09:01→09:02)
[2021-09-06] MEDS: MEROPENEM 1 GM in DEXTROSE 5%-WATER - 50 ML IVPB SCH ×2 (09:03→22:57)
[2021-09-06] MEDS: PANTOPRAZOLE SODIUM 40 MG VIAL IVPUSH SCH (09:03)
[2021-09-06] MEDS: HYDROCORTISONE SOD SUCCINATE 100 MG/2 ML VIAL IVPUSH SCH (09:03)
[2021-09-06] MEDS: METOLAZONE 2.5 MG TABLET (FP) PO SCH (09:05)
[2021-09-06] MEDS: FUROSEMIDE INJECTION 100 MG in DEXTROSE 5%-WATER - 40 ML IVPB SCH ×2 (09:11→17:03)
[2021-09-06 09:35] LABS: ANISOCYTOSIS 1+; MACROCYTOSIS 0
[2021-09-06] MEDS: SILVER SULFADIAZINE 1% TOP CREAM 50 GM JAR TP SCH (10:19)
[2021-09-06] MEDS: AMIODARONE HCL 200 MG TABLET PO SCH ×2 (10:19→22:57)
[2021-09-06] MEDS: FENTANYL NS IVPB 500 MCG/100 ML BAG IVPB SCH ×2 (12:23→12:24)
[2021-09-06] MEDS: CHLORHEXIDINE GLUCONATE 4% CLEANSER FOR DECOLONIZATION TP SCH (22:57)
[2021-09-07 06:52] LABS: HEMATOCRIT 22.9 % (32.4-45.2); HEMOGLOBIN 7.3 GM/dL (10.7-15.3); MCH 27.2 pg (25.7-33.7); MCHC 31.9 g/dl (32.0-36.0); MEAN CELL VOLUME 85.4 fl (80-96); MEAN PLT VOLUME 9.1 fl (7.5-11.1); PLATELET COUNT 170 10^3/uL (134-434); RBC 2.68 M/mm3 (3.60-5.2); RDW 18.2 % (11.6-15.6); WHITE BLOOD COUNT 22.2 K/mm3 (4.0-10.0)
[2021-09-07 07:10] LABS: CALCIUM 7.4 mg/dL (8.5-10.1)
[2021-09-07 07:11] LABS: ALBUMIN 1.6 g/dl (3.4-5.0); BLOOD UREA NITROGEN 89.4 mg/dL (7-18); MAGNESIUM 2.3 mg/dL (1.8-2.4)
[2021-09-07 07:14] LABS: CREATININE 4.3 mg/dL (0.55-1.3); PHOSPHOROUS 8.7 mg/dL (2.5-4.9)
[2021-09-07] MEDS: INSULIN SLIDING SCALE (NOVOLOG) 1 VIAL SQ SCH ×3 (07:14→18:32)
[2021-09-07] MEDS: INSULIN (LEVEMIR) 100 UNITS/ML UNITS SQ SCH (07:14)
[2021-09-07] MEDS: LEVOTHYROXINE NA 125 MCG TABLET (FP) PO SCH (07:14)
[2021-09-07 07:15] LABS: BILIRUBIN,TOTAL 0.8 mg/dL (0.2-1); TOT PROT 5.3 g/dl (6.4-8.2)
[2021-09-07] MEDS ORDERED: DEXTROSE 5%-WATER - 50 ML IVPB ONE ×2 (08:34→20:59)
[2021-09-07] MEDS ORDERED: MEROPENEM 1 GM VIAL (RESTRICTED TO ID) IVPB ONE ×2 (08:34→20:59)
[2021-09-07] MEDS: PANTOPRAZOLE SODIUM 40 MG VIAL IVPUSH SCH (09:08)
[2021-09-07] MEDS: HYDROCORTISONE SOD SUCCINATE 100 MG/2 ML VIAL IVPUSH SCH (09:08)
[2021-09-07] MEDS: SILVER SULFADIAZINE 1% TOP CREAM 50 GM JAR TP SCH (09:09)
[2021-09-07] MEDS: FUROSEMIDE INJECTION 100 MG in DEXTROSE 5%-WATER - 40 ML IVPB SCH (09:09)
[2021-09-07] MEDS: MEROPENEM 1 GM in DEXTROSE 5%-WATER - 50 ML IVPB SCH (09:09)
[2021-09-07] MEDS: METOLAZONE 2.5 MG TABLET (FP) PO SCH (09:10)
[2021-09-07] MEDS: AMIODARONE HCL 200 MG TABLET PO SCH ×2 (09:45→21:18)
[2021-09-07] MEDS: PROPOFOL 1,000,000 MCG/100 ML VIAL IVPB SCH (11:32)
[2021-09-07 12:24] LABS: ANISOCYTOSIS 0; MACROCYTOSIS 0; OVALOCYTE 1+
[2021-09-07] MEDS ORDERED: SODIUM CHLORIDE 250 ML IV PRN (13:39)
[2021-09-07] MEDS ORDERED: ALBUMIN HUMAN 25% 12.5 GM/50 ML VIAL IV SCH (13:45)
[2021-09-07] MEDS: ALBUMIN HUMAN 25% 12.5 GM/50 ML VIAL IV SCH ×4 (15:25→19:07)
[2021-09-07] MEDS ORDERED: LORazepam 2 MG/ML SDV VIAL IVPUSH PRN (16:42)
[2021-09-07] MEDS ORDERED: GENTAMICIN IVPB ONE (18:40)
[2021-09-07] MEDS ORDERED: SODIUM CHLORIDE IVPB ONE (18:40)
[2021-09-07] MEDS: CHLORHEXIDINE GLUCONATE 4% CLEANSER FOR DECOLONIZATION TP SCH (21:18)
[2021-09-08] MEDS: INSULIN SLIDING SCALE (NOVOLOG) 1 VIAL SQ SCH ×6 (00:25→23:24)
[2021-09-08] MEDS: INSULIN (LEVEMIR) 100 UNITS/ML UNITS SQ SCH ×4 (00:25→23:22)
[2021-09-08] MEDS: MEROPENEM 1 GM in DEXTROSE 5%-WATER - 50 ML IVPB SCH ×3 (00:25→22:40)
[2021-09-08] MEDS: LEVOTHYROXINE NA 125 MCG TABLET (FP) PO SCH (07:10)
[2021-09-08 07:54] LABS: HEMATOCRIT 23.3 % (32.4-45.2); HEMOGLOBIN 7.8 GM/dL (10.7-15.3); MCH 28.3 pg (25.7-33.7); MCHC 33.4 g/dl (32.0-36.0); MEAN CELL VOLUME 84.8 fl (80-96); MEAN PLT VOLUME 8.8 fl (7.5-11.1); PLATELET COUNT 144 10^3/uL (134-434); RBC 2.75 M/mm3 (3.60-5.2); RDW 18.8 % (11.6-15.6); WHITE BLOOD COUNT 22.2 K/mm3 (4.0-10.0)
[2021-09-08 08:43] LABS: ALBUMIN 2.1 g/dl (3.4-5.0); BILIRUBIN,TOTAL 0.9 mg/dL (0.2-1); CALCIUM 7.8 mg/dL (8.5-10.1); CREATININE 3.2 mg/dL (0.55-1.3); MAGNESIUM 2.1 mg/dL (1.8-2.4); PHOSPHOROUS 7.1 mg/dL (2.5-4.9); TOT PROT 5.5 g/dl (6.4-8.2)
[2021-09-08] MEDS ORDERED: MEROPENEM 1 GM VIAL (RESTRICTED TO ID) IVPB ONE ×2 (08:49→22:43)
[2021-09-08] MEDS ORDERED: DEXTROSE 5%-WATER - 50 ML IVPB ONE ×2 (08:49→22:43)
[2021-09-08] MEDS: METOLAZONE 2.5 MG TABLET (FP) PO SCH (09:43)
[2021-09-08] MEDS: HYDROCORTISONE SOD SUCCINATE 100 MG/2 ML VIAL IVPUSH SCH (09:45)
[2021-09-08] MEDS: AMIODARONE HCL 200 MG TABLET PO SCH ×2 (09:45→23:23)
[2021-09-08] MEDS: PANTOPRAZOLE SODIUM 40 MG VIAL IVPUSH SCH (09:45)
[2021-09-08] MEDS: SILVER SULFADIAZINE 1% TOP CREAM 50 GM JAR TP SCH (09:46)
[2021-09-08] MEDS: PROPOFOL 1,000,000 MCG/100 ML VIAL IVPB SCH (09:46)
[2021-09-08 10:26] LABS: ANISOCYTOSIS 2+; MACROCYTOSIS 0; OVALOCYTE 1+; PLATELET ESTIMATE NORMAL; TOXIC GRANULATION 3+
[2021-09-08] MEDS ORDERED: MORPHINE SULFATE/0.9% NACL/PF 100 MG/100 ML BAG IVPB SCH (11:15)
[2021-09-08] MEDS: FUROSEMIDE INJECTION 100 MG in DEXTROSE 5%-WATER - 40 ML IVPB SCH ×2 (11:52→18:16)
[2021-09-08] MEDS ORDERED: METOCLOPRAMIDE HCL INJECTION 10 MG/2 ML VIAL IVPUSH PRN (16:52)
[2021-09-08] MEDS: WATER IVPB SCH (18:16)
[2021-09-08] MEDS: NOREPINEPHRINE BITARTRATE IVPB SCH (18:16)
[2021-09-08] MEDS: DEXTROSE 5% IVPB SCH (18:16)
[2021-09-08] MEDS ORDERED: SODIUM CHLORIDE 250 ML IV PRN (18:21)
[2021-09-08] MEDS: CHLORHEXIDINE GLUCONATE 4% CLEANSER FOR DECOLONIZATION TP SCH (23:23)
[2021-09-09] MEDS: INSULIN SLIDING SCALE (NOVOLOG) 1 VIAL SQ SCH ×3 (05:25→17:04)
[2021-09-09] MEDS: INSULIN (LEVEMIR) 100 UNITS/ML UNITS SQ SCH ×2 (06:33→21:42)
[2021-09-09] MEDS: LEVOTHYROXINE NA 125 MCG TABLET (FP) PO SCH (06:34)
[2021-09-09] MEDS ORDERED: MEROPENEM 1 GM VIAL (RESTRICTED TO ID) IVPB ONE ×2 (09:29→20:19)
[2021-09-09] MEDS ORDERED: DEXTROSE 5%-WATER - 50 ML IVPB ONE ×2 (09:29→20:19)
[2021-09-09] MEDS: HYDROCORTISONE SOD SUCCINATE 100 MG/2 ML VIAL IVPUSH SCH (09:41)
[2021-09-09] MEDS: MEROPENEM 1 GM in DEXTROSE 5%-WATER - 50 ML IVPB SCH ×2 (09:41→21:41)
[2021-09-09] MEDS: PANTOPRAZOLE SODIUM 40 MG VIAL IVPUSH SCH (09:42)
[2021-09-09] MEDS: AMIODARONE HCL 200 MG TABLET PO SCH ×2 (09:42→21:41)
[2021-09-09] MEDS: METOLAZONE 2.5 MG TABLET (FP) PO SCH (09:42)
[2021-09-09] MEDS: SILVER SULFADIAZINE 1% TOP CREAM 50 GM JAR TP SCH (09:43)
[2021-09-09] MEDS: FUROSEMIDE INJECTION 100 MG in DEXTROSE 5%-WATER - 40 ML IVPB SCH ×2 (12:00→17:05)
[2021-09-09] MEDS: WATER IVPB SCH (17:05)
[2021-09-09] MEDS: DEXTROSE 5% IVPB SCH (17:05)
[2021-09-09] MEDS: NOREPINEPHRINE BITARTRATE IVPB SCH (17:05)
[2021-09-09] MEDS: PROPOFOL 1,000,000 MCG/100 ML VIAL IVPB SCH (20:53)
[2021-09-09] MEDS: CHLORHEXIDINE GLUCONATE 4% CLEANSER FOR DECOLONIZATION TP SCH (21:42)
[2021-09-10] MEDS: LACTATED RINGERS SOLUTION 1,000 ML/1,000 ML INFUS.BAG IV SCH
[2021-09-10] MEDS: INSULIN SLIDING SCALE (NOVOLOG) 1 VIAL SQ SCH ×4 (00:08→18:34)
[2021-09-10] MEDS ORDERED: LACTATED RINGERS SOLUTION 1,000 ML/1,000 ML INFUS.BAG IV ONE (00:17)
[2021-09-10] MEDS: LEVOTHYROXINE NA 125 MCG TABLET (FP) PO SCH (06:16)
[2021-09-10] MEDS: INSULIN (LEVEMIR) 100 UNITS/ML UNITS SQ SCH ×2 (06:17→22:20)
[2021-09-10] MEDS: MORPHINE SULFATE/0.9% NACL/PF 100 MG/100 ML BAG IVPB SCH (06:28)
[2021-09-10] MEDS ORDERED: MEROPENEM 1 GM VIAL (RESTRICTED TO ID) IVPB ONE (08:25)
[2021-09-10] MEDS ORDERED: DEXTROSE 5%-WATER - 50 ML IVPB ONE (08:26)
[2021-09-10] MEDS: FUROSEMIDE INJECTION 100 MG in DEXTROSE 5%-WATER - 40 ML IVPB SCH (09:00)
[2021-09-10] MEDS: PANTOPRAZOLE SODIUM 40 MG VIAL IVPUSH SCH (09:01)
[2021-09-10] MEDS: MEROPENEM 1 GM in DEXTROSE 5%-WATER - 50 ML IVPB SCH (09:01)
[2021-09-10] MEDS: HYDROCORTISONE SOD SUCCINATE 100 MG/2 ML VIAL IVPUSH SCH (09:01)
[2021-09-10] MEDS: METOLAZONE 2.5 MG TABLET (FP) PO SCH (09:10)
[2021-09-10] MEDS: SILVER SULFADIAZINE 1% TOP CREAM 50 GM JAR TP SCH (09:12)
[2021-09-10] MEDS: AMIODARONE HCL 200 MG TABLET PO SCH (09:15)
[2021-09-10] MEDS: NOREPINEPHRINE BITARTRATE IVPB SCH (12:30)
[2021-09-10] MEDS: DEXTROSE 5% IVPB SCH (12:30)
[2021-09-10] MEDS: WATER IVPB SCH (12:30)
[2021-09-10] MEDS ORDERED: LACTATED RINGERS SOLUTION 1000 ML INFUS.BAG IV ONE (20:02)
[2021-09-10] MEDS: VASOPRESSIN 40 UNITS/100 ML BAG IV SCH (21:00)
[2021-09-10] MEDS: CHLORHEXIDINE GLUCONATE 4% CLEANSER FOR DECOLONIZATION TP SCH (22:20)
[2021-09-11] MEDS: LACTATED RINGERS SOLUTION 1,000 ML/1,000 ML INFUS.BAG IV SCH ×2 (01:15)
[2021-09-11] MEDS: INSULIN SLIDING SCALE (NOVOLOG) 1 VIAL SQ SCH ×2 (01:26→05:16)
[2021-09-11] MEDS: MORPHINE SULFATE/0.9% NACL/PF 100 MG/100 ML BAG IVPB SCH (05:17)
[2021-09-11] MEDS: INSULIN (LEVEMIR) 100 UNITS/ML UNITS SQ SCH ×2 (06:48→21:25)
[2021-09-11] MEDS: LEVOTHYROXINE NA 125 MCG TABLET (FP) PO SCH (07:04)
[2021-09-11] MEDS: HYDROCORTISONE SOD SUCCINATE 100 MG/2 ML VIAL IVPUSH SCH (09:40)
[2021-09-11] MEDS: PANTOPRAZOLE SODIUM 40 MG VIAL IVPUSH SCH (09:40)
[2021-09-11] MEDS: METOLAZONE 2.5 MG TABLET (FP) PO SCH (09:41)
[2021-09-11] MEDS: VASOPRESSIN 40 UNITS/100 ML BAG IV SCH ×3 (09:48→21:25)
[2021-09-11] MEDS: SILVER SULFADIAZINE 1% TOP CREAM 50 GM JAR TP SCH (09:57)
[2021-09-11] MEDS: WATER IVPB SCH (10:00)
[2021-09-11] MEDS: NOREPINEPHRINE BITARTRATE IVPB SCH (10:00)
[2021-09-11] MEDS ORDERED: AMIODARONE HCL 200 MG TABLET PO SCH (10:00)
[2021-09-11] MEDS: DEXTROSE 5% IVPB SCH (10:00)
[2021-09-11] MEDS: CHLORHEXIDINE GLUCONATE 4% CLEANSER FOR DECOLONIZATION TP SCH (21:25)
[2021-09-11] MEDS ORDERED: METOPROLOL TARTRATE 5 MG/5 ML VIAL IVPUSH PRN (22:10)
[2021-09-11] MEDS: AMIODARONE HCL 200 MG TABLET PO SCH (22:30)
[2021-09-11] MEDS: LACTATED RINGERS SOLUTION 1000 ML INFUS.BAG IV ONE ×2 (23:00→23:15)
[2021-09-12] MEDS: INSULIN SLIDING SCALE (NOVOLOG) 1 VIAL SQ SCH ×3 (00:58→08:06)
[2021-09-12] MEDS: LACTATED RINGERS SOLUTION 1,000 ML/1,000 ML INFUS.BAG IV SCH ×2 (01:15)
[2021-09-12] MEDS ORDERED: METOPROLOL TARTRATE 5 MG/5 ML VIAL IVPUSH PRN ×2 (01:40→01:52)
[2021-09-12] MEDS: MORPHINE SULFATE/0.9% NACL/PF 100 MG/100 ML BAG IVPB SCH (06:35)
[2021-09-12] MEDS: INSULIN (LEVEMIR) 100 UNITS/ML UNITS SQ SCH (06:36)
[2021-09-12] MEDS: LEVOTHYROXINE NA 125 MCG TABLET (FP) PO SCH (06:37)
[2021-09-12 08:22] VITALS: TEMP 98.3
[2021-09-12] MEDS: AMIODARONE HCL 200 MG TABLET PO SCH (09:49)
[2021-09-12] MEDS: PANTOPRAZOLE SODIUM 40 MG VIAL IVPUSH SCH (09:49)
[2021-09-12] MEDS: SILVER SULFADIAZINE 1% TOP CREAM 50 GM JAR TP SCH (09:49)
[2021-09-12] MEDS: HYDROCORTISONE SOD SUCCINATE 100 MG/2 ML VIAL IVPUSH SCH (09:50)
[2021-09-12] MEDS: METOLAZONE 2.5 MG TABLET (FP) PO SCH (09:50)
[2021-09-12 09:57] VITALS: BP 52/23; PULSE 123
[2021-09-12] MEDS ORDERED: LORazepam 2 MG/ML SDV VIAL IVPB SCH (10:30)
== END 2021-09-12 10:47 | disposition expired | DRG 870 ==
LOC: JER 21:24 → JERBED 22:22 → JICU 23:20
PROVIDERS: ADMIT Internal Medicine; ATTEND Internal Medicine
PROC: 5A1955Z Respiratory Ventilation, Greater than 96 Consecutive Hours (ICD-10-PCS; principal; 2021-08-13)
PROC: 0BH17EZ Insertion of Endotracheal Airway into Trachea, Via Natural or Artificial Opening (ICD-10-PCS; 2021-08-13)
PROC: 04HY32Z Insertion of Monitoring Device into Lower Artery, Percutaneous Approach (ICD-10-PCS; 2021-08-14)
PROC: 4A133B1 Monitoring of Arterial Pressure, Peripheral, Percutaneous Approach (ICD-10-PCS; 2021-08-14)
PROC: 4A133J1 Monitoring of Arterial Pulse, Peripheral, Percutaneous Approach (ICD-10-PCS; 2021-08-14)
PROC: 06HM33Z Insertion of Infusion Device into Right Femoral Vein, Percutaneous Approach (ICD-10-PCS; 2021-08-14)
PROC: B54BZZA Ultrasonography of Right Lower Extremity Veins, Guidance (ICD-10-PCS; 2021-08-14)
PROC: 02HV33Z Insertion of Infusion Device into Superior Vena Cava, Percutaneous Approach (ICD-10-PCS; 2021-08-15)
PROC: B548ZZA Ultrasonography of Superior Vena Cava, Guidance (ICD-10-PCS; 2021-08-15)
PROC: 02HV33Z Insertion of Infusion Device into Superior Vena Cava, Percutaneous Approach (ICD-10-PCS; 2021-08-17)
PROC: B548ZZA Ultrasonography of Superior Vena Cava, Guidance (ICD-10-PCS; 2021-08-17)
PROC: 5A1D70Z Performance of Urinary Filtration, Intermittent, Less than 6 Hours Per Day (ICD-10-PCS; 2021-08-17)
PROC: 02H633Z Insertion of Infusion Device into Right Atrium, Percutaneous Approach (ICD-10-PCS; 2021-08-25)
PROC: B548ZZA Ultrasonography of Superior Vena Cava, Guidance (ICD-10-PCS; 2021-08-25)
PROC: 04HY32Z Insertion of Monitoring Device into Lower Artery, Percutaneous Approach (ICD-10-PCS; 2021-08-26)
PROC: 4A133B1 Monitoring of Arterial Pressure, Peripheral, Percutaneous Approach (ICD-10-PCS; 2021-08-26)
PROC: 4A133J1 Monitoring of Arterial Pulse, Peripheral, Percutaneous Approach (ICD-10-PCS; 2021-08-26)
PROC: 06HM33Z Insertion of Infusion Device into Right Femoral Vein, Percutaneous Approach (ICD-10-PCS; 2021-08-26)
PROC: B54BZZA Ultrasonography of Right Lower Extremity Veins, Guidance (ICD-10-PCS; 2021-08-26)
DX: A41.9 Sepsis, unspecified organism (principal); I50.33 Acute on chronic diastolic (congestive) heart failure; R65.21 Severe sepsis with septic shock; J96.01 Acute respiratory failure with hypoxia; K72.00 Acute and subacute hepatic failure without coma; N17.0 Acute kidney failure with tubular necrosis; J96.02 Acute respiratory failure with hypercapnia; J18.9 Pneumonia, unspecified organism; I13.0 Hypertensive heart and chronic kidney disease with heart failure and stage 1 through stage 4 chronic kidney disease, or unspecified chronic kidney disease; N39.0 Urinary tract infection, site not specified; E87.2 Acidosis; I24.8 Other forms of acute ischemic heart disease; L03.113 Cellulitis of right upper limb; E03.9 Hypothyroidism, unspecified; E11.22 Type 2 diabetes mellitus with diabetic chronic kidney disease; N18.9 Chronic kidney disease, unspecified; E87.5 Hyperkalemia; R00.1 Bradycardia, unspecified; S60.521A Blister (nonthermal) of right hand, initial encounter; X58.XXXA Exposure to other specified factors, initial encounter; Y93.89 Activity, other specified; Y92.230 Patient room in hospital as the place of occurrence of the external cause; Y99.8 Other external cause status
CPT/HCPCS: 31500; 36415; 36430; 36600; 71045-TC-FY; 80048; 80053; 80076; 81003; 82550; 82553; 82803; 82962; 83605; 83735; 84100; 84443; 84484; 85025; 85027; 85610; 85730; 86803; 86922; 87040; 87070; 87077; 87086; 87186; 87205; 87340; 93005; 93010; 93306-TC; 94002; 99285-25; C9803; G0480; J0282; J0878; J1644; J3490; P9047; P9058; U0003; U0005